=== PATIENT | female | born 1965 | race Two or more races ===

== ENCOUNTER 2023-11-15 13:45 | Inpatient (IN) | payer OTHER, MEDICAID, SELFPAY ==
--- NOTE | ~2023-11-15 | CT_ITS ---
EXAMINATION: CT head/brain wo IV con CLINICAL INFORMATION: Reason for Exam vomiting, hypertensive urgency COMPARISON: None available TECHNIQUE: Contiguous axial imaging was performed from the skull base to vertex without intravenous contrast. Sagittal and coronal reformatted images were obtained. This CT examination was performed using dose optimization techniques as appropriate, variously including the following: * Automated exposure control * Adjustment of mA and/or kV according to patient size (this includes techniques or standardized protocols for targeted exams where dose is matched to indication/reason for exam; i.e. extremities or head) Use of iterative reconstruction technique DLP: 1162 mGy-cm FINDINGS: Motion degraded examination. The cerebral vertex is degraded by motion and underlying hemorrhage in this area cannot be excluded. No definite acute intracranial hemorrhage in the nondegraded areas of the examination. No acute, territorial loss of steinberg-white differentiation. The ventricles and sulci are appropriate in size and configuration for the patient's stated age. No depressed calvarial fracture. The visualized paranasal sinuses are well-aerated. The mastoid air cells are clear. CT/CT head/brain wo IV con IMPRESSION: Significantly motion degraded examination. The cerebral vertex is degraded by motion and underlying hemorrhage in this area cannot be excluded. No definite acute intracranial hemorrhage in the nondegraded areas of the examination.
[2023-11-15 13:58] VITALS: BP 171/99; PULSE 97; RESP 16; TEMP 37.1; O2SAT 99; BMI 31.2
--- NOTE | 2023-11-15 14:17 | PC.NURSE ---
Mateo SHEEHAN from [facility] office in [place]. Pt reports she was meeting with her mental health social worker and was expressing her dissatisfaction with [facility] psychiatric units. Pt reports that she is frustrated with the fact that there are metal hooks in the bathrooms at [facility] and that is dangerous, someone could hurt themselves on that . Pt relays to this RN that she has no want to kill herself and when presented with the section 12 that [facility] wrote, she states nah, that's all made up, I ain't suicidal . Pt is hyperverbal at times, eye contact intense, pt is otherwise calm and cooperative without issue. Urine and covid swab obtained, December, [facility] obtaining labs at this time
[2023-11-15 14:29] LABS: Appearance Urine Clear; Color Urine Yellow; Glucose Urine UA 100 mg/dL (Negative); Leukocyte Esterase Urine Negative (Negative); Nitrite Urine Negative (Negative); UMIC TRIGGER UACC YES; Urine Blood Negative (Negative); Urine Ketones Negative (Negative); Urine Protein 30 (1+) mg/dL (Neg-Trace)
--- NOTE | 2023-11-15 14:29 | PC.NURSE ---
RE: Med Rec This RN completed med rec with medical record and patient. Pt reports she only takes 100mg Seroquel, not any of the other doses that are listed. Pt also reports that she no longer takes her Hydroxizine or Spironolactone. Pt reports compliance with all other medications
[2023-11-15 14:31] LABS: Bacteria Urine None Seen (None Seen); Hyaline Casts Urine 0-2 /LPF (0-2); RBC Urine 0-2 /HPF (0-2); Squamous Epithelial Cell Urine 0-2 /HPF (0-2); WBC Urine 0-5 /HPF (0-5)
[2023-11-15 14:31] LABS: Basophils Percent Auto 0.2 % (0-2); Eosinophils Percent Auto 0.1 % (0-4); Hematocrit 44.4 % (37.0-47.0); Hemoglobin 15.8 g/dl (12.0-16.0); Imm Gran Abs Auto 0.01 X10*3/uL (0.00-0.03); Imm Gran Pct Auto 0.1 % (0.0-0.4); Lymphocytes Absolute Auto 0.4 X10*3/uL (1.2-4.9); Lymphocytes Percent Auto 4.3 % (20-40); MANUAL DIFF FLAG SCAN; Mean Corpuscular HGB Conc 35.6 g/dl (31.0-35.0); Mean Corpuscular Hemoglobin 31.4 pg (27.0-33.0); Mean Corpuscular Volume 88.3 fL (80.0-98.0); Mean Platelet Volume 9.6 fL (9.4-12.3); Monocytes Absolute Auto 0.4 X10*3/uL (0.1-1.2); Monocytes Percent Auto 4.5 % (2-11); Neutrophils Absolute Auto 7.5 x10*3/uL (2.0-8.3); Neutrophils Percent Auto 90.8 % (45-73); Platelet Count 235 X10*3/uL (160-400); Red Blood Count 5.03 X10*6/uL (4.20-5.50); Red Cell Distribution Width 12.7 % (11.0-16.0); SCAN SMEAR FLAG 1; White Blood Count 8.2 X10*3/uL (4.8-10.8)
--- NOTE | 2023-11-15 14:36 | ED_ITS ---
HPI - General Adult General Chief complaint: Psychiatric Symptoms Stated complaint: si section 12 Time Seen by Provider: 11/15/23 13:52 History of Present Illness HPI narrative: Patient is a 58-year-old female with a history of being section 12 from [facility]. Patient had possible plans to hang herself. Patient denies any suicidal homicidal ideation at this time. She stated there is a lack of ligature free environment at [facility]. Subsequently the physician/ophthalmologist showed up patient was taken. No chest pain or shortness of breath no diaphoresis. Patient from home. Related Data Home Medications Medication Instructions Recorded Confirmed amlodipine 5 mg tablet 5 mg PO DAILY 11/15/23 11/15/23 clonidine HCl 0.1 mg tablet 0.1 mg PO BID 11/15/23 11/15/23 metoprolol succinate 25 mg 25 mg PO DAILY 11/15/23 11/15/23 tablet,extended release 24 hr quetiapine 100 mg tablet 100 mg PO BEDTIME 11/15/23 11/15/23 Allergies Allergy/AdvReac Type Severity Reaction Status Date / Time [place] And Derivatives Allergy Severe Hives Verified 11/15/23 14:16 strawberry Allergy Severe Hives Verified 11/15/23 14:16 Review of Systems 2 Review of Systems: No chest pain or shortness of breath no dizziness no nausea no vomiting Yes all other systems are reviewed and are negative [facility] Past Medical History Attestation statement: The following information was validated with the patient. Social History Social History Smoked in Last 30 Days: No Use of substances other than those prescribed or required for medical reasons: No Patient : No Physical Exam ED Vital Signs: Vital Signs - 24 hr 11/15/23 13:58 Temperature 98.7 F Pulse Rate 97 Respiratory Rate 16 Blood Pressure 171/99 H Pulse Oximetry 99 Oxygen Delivery Method Room Air BMI result Body Mass Index 31.2 Appearance: Alert. Oriented X3. No acute distress. Eyes: Pupils equal, round and reactive to light. ENT: Pharynx normal. Neck: Normal inspection. Neck supple. No lymph nodes noted. No crepitus CVS: Normal heart rate and rhythm. Pulses normal. Normal S1 and S2 Respiratory: No respiratory distress. Breath sounds normal. No Wheezing. No rales Abdomen: Soft and nontender. No rigidity. No distention. good BS x4 Skin: Skin warm and dry. Normal skin color. Normal skin turgor. Extremities: No lower extremity edema. Neurovascular intact to all extremities. No Lacerations. No Rash Neuro: Oriented X 3. No motor deficit. No sensory deficit. Moving all extermities. No slurred speech. Cranial nerves grossly intact. Medical Decision Making Medical Decision Making [facility] Narrative: Patient well-appearing not acute distress. Question suicidal ideation section 12 from [facility]. Currently awaiting crisis evaluation. Labs ordered. Differential Diagnosis Differential Diagnoses: The differential diagnosis associated with the presentation includes Depression,anxiety, suicidal ideation Admission/Observation Consideration of admission/observation: Escalation of care including admission/observation considered Lab Data [facility] Lab Attestation statement: I reviewed the patient's lab results. 11/15/23 14:25 11/15/23 14:25 Labs: Lab Results 11/15/23 11/15/23 Range/Units 14:08 14:25 WBC 8.2 (4.8-10.8) X10*3/uL RBC 5.03 (4.20-5.50) X10*6/uL Hgb 15.8 (12.0-16.0) g/dl Hct 44.4 (37.0-47.0) % MCV 88.3 (80.0-98.0) fL MCH 31.4 (27.0-33.0) pg MCHC 35.6 H (31.0-35.0) g/dl RDW 12.7 (11.0-16.0) % Plt Count 235 (160-400) X10*3/uL MPV 9.6 (9.4-12.3) fL Urine Color Yellow Urine Appearance Clear Urine pH 5.0 (5.0-9.0) Ur Specific [place] 1.020 (1.005-1.025) Urine Protein 30 (1+) H (Neg-Trace) mg/dL Urine Glucose (UA) 100 H (Negative) mg/dL Urine Ketones Negative (Negative) mg/dL Urine Blood Negative (Negative) Urine Nitrite Negative (Negative) Ur Leukocyte Esterase Negative (Negative) Urine RBC 0-2 (0-2) /HPF Urine WBC 0-5 (0-5) /HPF Ur Squamous Epith Cells 0-2 (0-2) /HPF Urine Bacteria None Seen (None Seen) Hyaline Casts 0-2 (0-2) /LPF Discharge Plan Discharge Clinical Impression: Depression Patient Disposition: Still a Patient Prescriptions: No Action clonidine HCl 0.1 mg tablet 0.1 mg PO BID amlodipine 5 mg tablet 5 mg PO DAILY quetiapine 100 mg tablet 100 mg PO BEDTIME metoprolol succinate 25 mg tablet extended release 24 hr 25 mg PO DAILY Interventions: [place]-Suicide Risk Severity Scale Last Done: 11/15/23 14:01
[2023-11-15 14:40] LABS: Amphetamine Screen Urine Not Detected (Not Detect); Barbiturates, Urine Not Detected (Not Detect); Benzodiazepines Screen Urine Not Detected (Not Detect); Cannabinoid Screen Urine Not Detected (Not Detect); Cocaine Screen Urine Not Detected (Not Detect); Fentanyl, urine POSITIVE (Not Detect); Opiate Screen Urine Not Detected (Not Detect); Phencyclidine Screen Urine Not Detected (Not Detect)
[2023-11-15 14:48] LABS: SLIDE REVIEW VERIFIED
[2023-11-15 14:53] LABS: Alanine Aminotransferase 41 U/L (0-31); Albumin Level 4.8 g/dL (3.5-5.0); Alkaline Phosphatase 101 U/L (39-117); Anion Gap 13 (12-20); Aspartate Amino Transferase 28 U/L (5-31); Blood Urea Nitrogen 14 mg/dL (9-16); Carbon Dioxide 25 mmol/L (22-29); Chloride 105 mmol/L (96-108); Creatinine Clr Calc Pharmacy 34.8; Estimated Glomerular Filt Rate 35; Ethanol < 10 mg/dL; Glucose Random 124 mg/dL (60-115); Potassium 4.2 mmol/L (3.3-5.1); Sodium 139 mmol/L (135-145); Total Protein 8.5 g/dL (6.5-8.0)
[2023-11-15 14:58] LABS: COVID-19 Test Negative (Negative); IDNOW Serial# 08D9AD1C
--- NOTE | 2023-11-15 15:31 | PHA.MEDREC ---
Pharmacy Consult ? Medication Reconciliation Pharmacy has reviewed the medication reconciliation completed by Charleen. Per RN patient stating no longer taking hydroxyzine or spironolactone. Tamy Mcnally, GloriaD
--- NOTE | 2023-11-15 19:51 | PC.NURSE ---
patient appears to remain at rest at present respirations are even and unlabored patient appears in no distress
[2023-11-15 19:55] VITALS: BP 158/108; PULSE 84; RESP 16; TEMP 36.6; O2SAT 98
[2023-11-15] MEDS: cloNIDine HCL 0.1 MG TABLET PO (20:05)
[2023-11-15] MEDS: QUEtiapine Fumarate 100 MG TABLET PO (20:05)
[2023-11-16] MEDS: Calcium Carbonate 750 MG TAB.CHEW PO (05:22)
[2023-11-16] MEDS: Ondansetron ODT 4 MG TAB.RAPDIS TRANSLINGU (07:22)
[2023-11-16] MEDS: cloNIDine HCL 0.1 MG TABLET PO ×2 (08:30→20:10)
[2023-11-16] MEDS: amLODIPine Besylate 5 MG TABLET PO (08:30)
[2023-11-16] MEDS: Metoprolol Succinate ER 25 MG TAB.ER.24H PO (08:31)
[2023-11-16 12:18] VITALS: BP 158/90; PULSE 73; TEMP 36.2; O2SAT 99
[2023-11-16 14:06] VITALS: BP 176/81; PULSE 98; RESP 16; TEMP 36.6; O2SAT 100
--- NOTE | 2023-11-16 17:56 | PC.ADMIT ---
Pt. entered this unit on a CV via w/c from [facility]. Pt was referred to [facility] through the [facility] crisis team d/t SI/HI statements. The precipitating factor for the SI/HI is her partner dying 1 year ago. Per crisis paperwork unrelenting plan to hang herself (with a sheet) on site for 11/18/23 . In addition, specific unrelenting threats of violence towards staff . Pt observed to be delusional and self dialoguing by [facility]. [facility]. Pt is A&Ox4. When she entered the unit, she was hyperverbal and then wanted to go lay down. Pt was then approached by a second nurse, and she was asleep at the time. Pt declined her admission assessment again. She became irritable during dinner as she called her cheeseburger raw , I don't do blood, do you see it, it's red . At that point, pt declined nursing staff's third approach to complete admission assessment. I am going back to bed, don't talk to me and I don't want anything from you . Pt. appears to be resting comfortably in bed.
[2023-11-16 18:00] VITALS: BP 178/89; PULSE 89; RESP 20; TEMP 36.6; O2SAT 99
[2023-11-16] MEDS: QUEtiapine Fumarate 100 MG TABLET PO (20:10)
[2023-11-17] VITALS (7 sets, daily range): BP systolic 139–220; BP diastolic 96–114; PULSE 66–81; RESP 15–20; TEMP 36.7; O2SAT 98–99
--- NOTE | 2023-11-17 | ECG_ITS ---
Test Reason : elevate BP Blood Pressure : / mmHG Vent. Rate : 056 BPM Atrial Rate : 056 BPM P-R Int : 154 ms QRS Dur : 072 ms QT Int : 442 ms P-R-T Axes : 027 -29 045 degrees QTc Int : 426 ms Sinus bradycardia Otherwise normal ECG No previous ECGs available Referred By: Janice White Electronically Signed By:Scott Harley
[2023-11-17] MEDS: amLODIPine Besylate 5 MG TABLET PO ×2 (07:52→11:13)
[2023-11-17] MEDS: cloNIDine HCL 0.1 MG TABLET PO (07:52)
[2023-11-17] MEDS: Metoprolol Succinate ER 25 MG TAB.ER.24H PO (07:52)
[2023-11-17 07:54] LABS: Alanine Aminotransferase 29 U/L (0-31); Albumin Level 4.3 g/dL (3.5-5.0); Alkaline Phosphatase 86 U/L (39-117); Anion Gap 11 (12-20); Aspartate Amino Transferase 19 U/L (5-31); Bilirubin Total 1.3 mg/dL (0.0-1.0); Blood Urea Nitrogen 21 mg/dL (9-16); Calcium 10.8 mg/dL (8.4-10.2); Carbon Dioxide 28 mmol/L (22-29); Chloride 106 mmol/L (96-108); Cholesterol 235 mg/dL (<200); Creatinine Clr Calc Pharmacy 33.2; Estimated Glomerular Filt Rate 33; Glucose Fasting 157 mg/dL (60-99); HDL Cholesterol 58 mg/dL (>40); LDL Cholesterol Calculated 159 mg/dL (<100); Potassium 4.3 mmol/L (3.3-5.1); Sodium 141 mmol/L (135-145); Total Protein 7.2 g/dL (6.5-8.0); Triglycerides 94 mg/dL (<150)
--- NOTE | 2023-11-17 07:57 | PC.NURSE ---
Pt manual BP: 120/100, pulse 68, aymptomatic. This nurse texted this information to Janice Camacho NP via [employer] connect. This nurse gave morning medications which included amlodipine 5mg, Clonidine 0.1mg, and metoprolol 25mg. This nurse to recheck BP in 60 minutes post med administration. Nurse to monitor pt for adverse effects of hypertension.
[2023-11-17 10:37] LABS: Influenza A PCR NEGATIVE (Negative); Influenza B PCR NEGATIVE (Negative); Resp Syncy Virus RNA Qual PCR NEGATIVE (Negative); SARS COV2 PCR INHOUSE NEGATIVE (Negative)
--- NOTE | 2023-11-17 10:52 | HO.PSYADMNOT ---
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 Pt has hx she reports of schizoaffective bipolar, Has kidney failrure with hx of diazlysis- Pt very tangential and keeps adding in things about congregation this and that person- pleased provider is congregation says she converted, knows yifredy then says autumn - Past Psychiatric History: in care home years ago was started on seroquel , feels she needs higher dose Medical Evaluation Reviewed: Yes no recommendations made but I contact hospitalist for concerns about HTN and now vomiting (she hadn't had vomiting in er) [facility] Medical History (Updated 11/18/23 @ 10:02 by Janice White MD) Nausea & vomiting Depression CKD (chronic kidney disease) stage 3, GFR 30-59 ml/min Hypertension Surgical History (Updated 11/17/23 @ 11:00 by Adelina Galeano NP) H/O knee surgery Family History: did not get Social History: currently homeless, no income- Substance History: mj only - 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 Trauma History: in correction- Diagnostics Vital Signs (24Hr): Vital Signs - 24 hr 11/16/23 12:18 11/16/23 14:06 11/16/23 18:00 Temperature 97.2 F 97.9 F 97.8 F Pulse Rate 73 98 89 Respiratory Rate 16 20 Blood Pressure 158/90 H 176/81 H 178/89 H Pulse Oximetry 99 100 99 Oxygen Delivery Method Room Air Room Air Room Air 11/17/23 07:49 11/17/23 07:53 11/17/23 08:45 Temperature 98.1 F Pulse Rate 67 68 78 Respiratory Rate 15 15 Blood Pressure 200/104 H 220/100 H 139/104 H Pulse Oximetry 99 Oxygen Delivery Method Room Air 11/17/23 10:48 Temperature Pulse Rate 81 Respiratory Rate Blood Pressure 177/114 H Pulse Oximetry Oxygen Delivery Method BMI result Body Mass Index 31.2 Labs 11/15/23 14:25 11/17/23 07:25 Labs: Laboratory Results - last 48 hr 11/15/23 11/15/23 11/17/23 14:08 14:25 07:25 WBC 8.2 RBC 5.03 Hgb 15.8 Hct 44.4 MCV 88.3 MCH 31.4 MCHC 35.6 H RDW 12.7 Plt Count 235 MPV 9.6 Immature Gran % (Auto) 0.1 Neut % (Auto) 90.8 H Lymph % (Auto) 4.3 L [place] % (Auto) 4.5 Eos % (Auto) 0.1 Baso % (Auto) 0.2 Lymph # (Auto) 0.4 L [place] # (Auto) 0.4 Eos # (Auto) 0.0 Baso # (Auto) 0.0 Abs Immat Gran (auto) 0.01 Absolute Neuts (auto) 7.5 Absolute Nucleated RBC 0.000 Nucleated RBC % (auto) 0.0 Smear Tech's Comments VERIFIED Sodium 139 141 Potassium 4.2 4.3 Chloride 105 106 Carbon Dioxide 25 28 Anion Gap 13 11 L BUN 14 21 H Creatinine 1.53 H 1.60 H Estim Creat Clear Calc 34.8 33.2 Estimated GFR 35 33 Random Glucose 124 H Fasting Glucose 157 H Calcium 11.0 H 10.8 H Total Bilirubin 1.0 1.3 H AST 28 19 ALT 41 H 29 Alkaline Phosphatase 101 86 Total Protein 8.5 H 7.2 Albumin 4.8 4.3 Triglycerides 94 Cholesterol 235 H LDL Cholesterol, Calc 159 H HDL Cholesterol 58 Urine Color Yellow Urine Appearance Clear Urine pH 5.0 Ur Specific [place] 1.020 Urine Protein 30 (1+) H Urine Glucose (UA) 100 H Urine Ketones Negative Urine Blood Negative Urine Nitrite Negative Ur Leukocyte Esterase Negative Urine RBC 0-2 Urine WBC 0-5 Ur Squamous Epith Cells 0-2 Urine Bacteria None Seen Hyaline Casts 0-2 Urine Opiates Screen Not Detected Urine Fentanyl Screen POSITIVE H Ur Barbiturates Screen Not Detected Ur Phencyclidine Scrn Not Detected Ur Amphetamines Screen Not Detected U Benzodiazepines Scrn Not Detected Urine Cocaine Screen Not Detected U Marijuana (THC) Screen Not Detected Ethyl Alcohol < 10 COVID-19 (BISHNU) Negative COVID-19 Clin Com See Note Influenza Type A (PCR) Influenza Type B (PCR) RSV RNA Qual (PCR) SARS-CoV-2 RNA (RT-PCR) 11/17/23 09:30 WBC RBC Hgb Hct MCV MCH MCHC RDW Plt Count MPV Immature Gran % (Auto) Neut % (Auto) Lymph % (Auto) [place] % (Auto) Eos % (Auto) Baso % (Auto) Lymph # (Auto) [place] # (Auto) Eos # (Auto) Baso # (Auto) Abs Immat Gran (auto) Absolute Neuts (auto) Absolute Nucleated RBC Nucleated RBC % (auto) Smear Tech's Comments Sodium Potassium Chloride Carbon Dioxide Anion Gap BUN Creatinine Estim Creat Clear Calc Estimated GFR Random Glucose Fasting Glucose Calcium Total Bilirubin AST ALT Alkaline Phosphatase Total Protein Albumin Triglycerides Cholesterol LDL Cholesterol, Calc HDL Cholesterol Urine Color Urine Appearance Urine pH Ur Specific [place] Urine Protein Urine Glucose (UA) Urine Ketones Urine Blood Urine Nitrite Ur Leukocyte Esterase Urine RBC Urine WBC Ur Squamous Epith Cells Urine Bacteria Hyaline Casts Urine Opiates Screen Urine Fentanyl Screen Ur Barbiturates Screen Ur Phencyclidine Scrn Ur Amphetamines Screen U Benzodiazepines Scrn Urine Cocaine Screen U Marijuana (THC) Screen Ethyl Alcohol COVID-19 (BISHNU) COVID-19 Clin Com Influenza Type A (PCR) NEGATIVE Influenza Type B (PCR) NEGATIVE RSV RNA Qual (PCR) NEGATIVE SARS-CoV-2 RNA (RT-PCR) NEGATIVE Meds/Allergies Meds Home Medications Medication Instructions Recorded Confirmed Type clonidine HCl 0.1 mg tablet 0.1 mg PO BID 11/15/23 11/17/23 History metoprolol succinate 25 mg 25 mg PO DAILY 11/15/23 11/17/23 History tablet,extended release 24 hr quetiapine 100 mg tablet 100 mg PO BEDTIME 11/15/23 11/17/23 History Allergies Allergies Allergy/AdvReac Type Severity Reaction Status Date / Time [place] And Derivatives Allergy Severe Hives Verified 11/15/23 14:16 strawberry Allergy Severe Hives Verified 11/15/23 14:16 Mental Status Exam Mental Status Exam Narrative: bald Patient Appearance: Unkempt Patient Orientation: Person, Place, Time and Situation Level of Consciousness: Awake Patient Behavior: Talkative, Cooperative and Distractible Affect Description: Expansive Patient Cognition Impaired: No Ability to Follow Directions: Fair Speech Pattern: Clear and Rambling Hallucinations: None Delusions: Not Present Thought Process: Distracted Thought Content: positive for Tangential and positive for Suicidal Ideation (recent but denies currently while in care) Depressive Symptoms: Muscle Tension, Difficulty Sleeping and Thoughts of /Suicide Abnormal Motor Activity Signs and Symptoms: Restlessness Judgement: Fair Assessment & Plan Assessment & Plan (1) Bipolar 1 disorder: Status: Acute Code(s): F31.9 - Bipolar disorder, unspecified Assessment and Plan: we were going to add seroquel 50mg in am and inc pm dose to 150mg but pt was transfered to medical unit for uncontrolled htn (2) Hypertension: Status: Acute Code(s): I10 - Essential (primary) hypertension Assessment and Plan: went to medical unit for monitoring (3) CKD (chronic kidney disease) stage 3, GFR 30-59 ml/min: Status: Acute Code(s): N18.30 - Chronic kidney disease, stage 3 unspecified (4) Nausea & vomiting: Status: Acute Code(s): R11.2 - Nausea with vomiting, unspecified Plan return to inpatient Patient educated on: diagnosis, medication risk/benefits and medical condition Informed Consent: understands and further education needed Reason for continued inpatient stay Substantial Risk for: harm to self, rapid decompensation and med/psych decompensation Statement Statement: I have reviewed the history and physical and performed a pertinent examination on my patient. No changes have occurred unless specified. If the History and Physical was not performed prior to admission, the Hospitalist's service will be consulted for completing the admission physical. Time Spent With Patient Time: Total time managing care of this patient today ____ minutes.
--- NOTE | 2023-11-17 10:59 | HO.PM.IMCN ---
History of Present Illness Data of Consult Service Date: 11/17/23 Primary Care Provider: Unknown Physician HPI 58 year old women with hx of HTN and depression admitted to for mental health care. She reports having nausea and vomiting for the past 3 days. She has also had elevated Blood pressure as well. She reports being diagnosed with HTN and CKD in early 2022 and reports compliance with her medications. She denied fever, chills, diarrhea, chest pain, sob, abdominal pain. Blood pressure was noted to be 177/114 a few minutes after the vomiting episode. She was alert and oriented during the interview with no further urge to vomit. She reported that she ate a hamburger yesterday and vomiting it up but the RN stated that the patient just removed the piece of food from her mouth rather and did not vomit. Tot bili 1.3, AST and ALT wnl, creat 1.60, EKG showing SB with no ischemic changes. Review of Systems Review of Systems: Denies any recent fever chills or decrease in appetite respiratory denies any shortness of breath r cough cardiovascular denied chest pain gastrointestinal see HPI genitourinary denies any dysuria frequency or hematuria musculoskeletal reports chronic knee pain neuropsych denies any weakness or seizures all other systems reviewed are negative [facility] Medical History (Updated 01/18/24 @ 00:02 by Storm Davis) Nausea & vomiting Depression CKD (chronic kidney disease) stage 3, GFR 30-59 ml/min Hypertension Family History (Updated 11/17/23 @ 11:01 by Adelina Galeano NP) Mother Diabetes mellitus Surgical History (Updated 11/17/23 @ 11:00 by Adelina Galeano NP) H/O knee surgery Social History Household Members: None Housing: Homeless Do you presently have visiting nurse or other home services: No Alcohol intake: current Alcohol intake frequency: a few times a month Comment: 1:1 sitter in for SI Patient Tobacco Use Status: Refuse Tobacco use screen Substance Use Type: Opiates service: No Sexual orientation: Lesbian/Rocha/Homosexual Meds Allergies Allergy/AdvReac Type Severity Reaction Status Date / Time [place] And Derivatives Allergy Severe Hives Verified 12/26/23 18:53 strawberry Allergy Severe Hives Verified 12/26/23 18:53 Active Medications: Current Medications Acetaminophen (Acetaminophen 325 Mg Tablet) 650 mg PO Q6H PRN PRN Reason: Headache/Pain Mild Scale (1-3) Al Hydroxide/Mg Hydroxide (Magnesium Hydrox/Alum Hydrox 30 Ml Oral.Susp) 30 ml PO Q6H PRN PRN Reason: Heartburn/Nausea Amlodipine Besylate (Amlodipine Besylate 10 Mg Tablet) 10 mg PO DAILY [facility]; Protocol Clonidine HCl (Clonidine Hcl 0.1 Mg Tablet) 0.1 mg PO BID [facility]; Protocol Last Admin: 11/17/23 07:52 Dose: 0.1 mg Hydroxyzine HCl (Hydroxyzine Hcl 25 Mg Tablet) 25 mg PO Q6H PRN PRN Reason: Anxiety Magnesium Hydroxide (Milk Of Magnesia 30 Ml Oral.Susp) 30 ml PO DAILY PRN PRN Reason: Constipation Metoprolol Succinate (Metoprolol Succinate Er 25 Mg Tab.Er.24h) 25 mg PO DAILY [facility]; Protocol Last Admin: 11/17/23 07:52 Dose: 25 mg Omeprazole (Omeprazole 20 Mg Capsule.Dr) 20 mg PO BID@0630,1630 [facility] Ondansetron HCl (Ondansetron Odt 4 Mg Tab.Rapdis) 4 mg TRANSLINGU Q6H PRN PRN Reason: Nausea and Vomiting Quetiapine Fumarate (Quetiapine Fumarate 100 Mg Tablet) 100 mg PO BEDTIME [facility] Last Admin: 11/16/23 20:10 Dose: 100 mg Trazodone HCl (Trazodone Hcl 50 Mg Tablet) 50 mg PO BEDTIME MRX1 PRN PRN Reason: Insomnia Physical Exam Vital Signs and Narrative: Vital Signs: Last Vital Signs Temp 98.1 F 11/17/23 07:49 Pulse 81 11/17/23 10:48 Resp 15 11/17/23 07:53 BP 177/114 H 11/17/23 10:48 Pulse Ox 99 11/17/23 07:49 O2 Del Method Room Air 11/17/23 07:49 BMI result Body Mass Index 31.2 Appearing in no acute distress head is normocephalic atraumatic eyes pupils are PERRLA sclera is anicteric lung sounds are clear to auscultation heart regular rate rhythm positive bowel sounds, abdomen is soft, nontender neuro patient is alert x3, Cranial nerves 2-12 are grossly intact without focal deficits Results Labs 11/15/23 14:25 11/17/23 07:25 Labs: Laboratory Results - last 24 hr 11/17/23 11/17/23 07:25 09:30 Anion Gap 11 L Estim Creat Clear Calc 33.2 Estimated GFR 33 Fasting Glucose 157 H Calcium 10.8 H Total Bilirubin 1.3 H AST 19 ALT 29 Alkaline Phosphatase 86 Total Protein 7.2 Albumin 4.3 Triglycerides 94 Cholesterol 235 H LDL Cholesterol, Calc 159 H HDL Cholesterol 58 Influenza Type A (PCR) NEGATIVE Influenza Type B (PCR) NEGATIVE RSV RNA Qual (PCR) NEGATIVE SARS-CoV-2 RNA (RT-PCR) NEGATIVE Assessment and Plan (1) Nausea & vomiting: Status: Resolved Plan 58 year old women with c/o nausea for the past 3 days with no abd pain or discomfort. no fever, chills or infectious source noted. She has a hx of Hypertension and likely uncontrolled for some time now but reports that she has been compliant with her medications. Denies hx of alcohol and marijuana use. Nausea and vomiting unknown etiology nausea and vomiting for 3 days no fever or leukocytosis no abd pain or tenderness Normal LFT's start omeprazole 20 mg BID tums and zofran prn GI consult Hypertension urgency Increased amlodipine to 10 mg daily continue clonidine and metoprolol will check brain CT to rule out hypertension as cause for vomiting ie: intracranial bleeding CKD stage 3 likely at baseline but no previous labs to compare avoid nephrotoxins
[2023-11-17] MEDS: Ondansetron ODT 4 MG TAB.RAPDIS TRANSLINGU (11:14)
[2023-11-17 11:18] LABS: Estimated Average Glucose 108 mg/dL; Hemoglobin A1c % 5.4 % (<6.0)
--- NOTE | 2023-11-17 12:29 | PC.NURSE ---
Pt has vomited x3 this shift, several episodes of HTN as well, please see VS chart for additional information. Pt being transfered to medical floor for further exploration. head CT pending as well. Resp panel completed and all negative.
== END 2023-11-17 14:04 | disposition other institution (70) | DRG 753 ==
LOC: HO.ED 15:31 → HO.PM5 11-16 12:19 → HO.IMC 11-17 13:44 → HO.PM5 11-22 15:12
PROVIDERS: Admitting Provider Psychiatry & Neurology Psychiatry; Emergency Provider Emergency Medicine Emergency Medical Services; Visit Provider Psychiatry & Neurology Psychiatry
DX: F31.9 Bipolar disorder, unspecified (principal); R45.851 Suicidal ideations; I16.0 Hypertensive urgency; I12.9 Hypertensive chronic kidney disease with stage 1 through stage 4 chronic kidney disease, or unspecified chronic kidney disease; N18.30 Chronic kidney disease, stage 3 unspecified; Z20.822 Contact with and (suspected) exposure to COVID-19; Z59.02 Unsheltered homelessness; Z79.899 Other long term (current) drug therapy
CPT/HCPCS: 0241U; 36415; 70450; 80053; 80061; 80307; 81001; 83036; 85025; 87635; 93005; 99285; S9485

== ENCOUNTER 2023-11-16 12:08 | Outpatient (BNV) | payer MEDICAID, SELFPAY | END 2023-11-17 09:37 | PROVIDERS: Admitting Provider Psychiatry & Neurology Psychiatry; Emergency Provider Emergency Medicine Emergency Medical Services; Visit Provider Internal Medicine Cardiovascular Disease | DX: I10 Essential (primary) hypertension (principal) | CPT/HCPCS: 93010 ==

== ENCOUNTER → 2023-11-16 12:08 | Outpatient (BNV) | payer MEDICAID, SELFPAY | PROVIDERS: Admitting Provider Psychiatry & Neurology Psychiatry; Emergency Provider Emergency Medicine Emergency Medical Services; Visit Provider Nurse Practitioner Acute Care | DX: R11.2 Nausea with vomiting, unspecified (principal) | CPT/HCPCS: 99223 ==

== ENCOUNTER 2023-11-17 15:20 | Inpatient (IN) | payer MEDICAID, SELFPAY ==
--- NOTE | 2023-11-17 12:41 | PM.IMHP ---
History of Present Illness Date of Service: 11/17/23 Chief Complaint: Vomiting, hypertensive urgency 58 year old women with hx of HTN and depression admitted to for mental health care and now transferred to [facility] of hypertensive urgency. She reports having nausea and vomiting for the past 3 days. She has also had elevated Blood pressure as well. She reports being diagnosed with HTN and CKD in early 2022 and reports compliance with her medications. She denied fever, chills, diarrhea, chest pain, sob, abdominal pain. Blood pressure was noted to be 177/114 a few minutes after the vomiting episode. But BP peaked at 220/100 during stay. She was alert and oriented during the interview with no further urge to vomit. She reported that she ate a hamburger yesterday and vomiting it up but the RN stated that the patient just removed the piece of food from her mouth rather and did not vomit. Tot bili 1.3, AST and ALT wnl, creat 1.60, EKG showing SB with no ischemic changes. Review of Systems Review of Systems: Denies any recent fever chills or decrease in appetite respiratory denies any shortness of breath or cough cardiovascular denied chest pain gastrointestinal denies any dysphagia abdominal pain nausea vomiting or diarrhea genitourinary denies any dysuria frequency or hematuria musculoskeletal denies any joint pain or swelling neuropsych denies any weakness or seizures all other systems reviewed are negative [facility] Medical History (Updated 11/17/23 @ 11:22 by Adelina Galeano NP) Nausea & vomiting Depression CKD (chronic kidney disease) stage 3, GFR 30-59 ml/min Hypertension Family History (Updated 11/17/23 @ 11:01 by Adelina Galeano NP) Mother Diabetes mellitus Surgical History (Updated 11/17/23 @ 11:00 by Adelina Galeano NP) H/O knee surgery Social History Household Members: None Housing: Apartment Patient Tobacco Use Status: Tobacco use Unknown Advance Directives: No Advance Directives Information Provided: No Meds Allergies Allergy/AdvReac Type Severity Reaction Status Date / Time [place] And Derivatives Allergy Severe Hives Verified 11/15/23 14:16 strawberry Allergy Severe Hives Verified 11/15/23 14:16 Active Medications: Current Medications Acetaminophen (Acetaminophen 325 Mg Tablet) 650 mg PO Q6H PRN PRN Reason: Pain, Mild (Pain Scale 1-3) Amlodipine Besylate (Amlodipine Besylate 10 Mg Tablet) 10 mg PO DAILY [facility]; Protocol Omeprazole (Omeprazole 20 Mg Capsule.Dr) 20 mg PO BID@0630,1630 [facility] Ondansetron HCl (Ondansetron Hcl 4 Mg/2 Ml Vial) 4 mg IVPUSH Q8H PRN PRN Reason: Nausea and Vomiting Ondansetron HCl (Ondansetron Hcl 4 Mg/2 Ml Vial) 4 mg IVPUSH Q8H PRN PRN Reason: Nausea and Vomiting Sodium Chloride (0.9 % Sodium Chloride Flush 3 Ml Syringe) 3 ml IVFLUSH QSHIFT [facility] Home Medications Medication Instructions Recorded Confirmed Last Taken Type clonidine HCl 0.1 mg tablet 0.1 mg PO BID 11/15/23 11/17/23 11/14/23 History metoprolol succinate 25 mg 25 mg PO DAILY 11/15/23 11/17/23 11/14/23 History tablet,extended release 24 hr quetiapine 100 mg tablet 100 mg PO BEDTIME 11/15/23 11/17/23 11/14/23 History Physical Exam Vital Signs and Narrative: Appearing in no acute distress head is normocephalic atraumatic eyes pupils are PERRLA sclera is anicteric mouth throat mucous membranes are intact and moist neck is supple no lymphadenopathy, no JVD noted lung sounds are clear to auscultation heart regular rate rhythm, clear S1, S2 positive bowel sounds, abdomen is soft, nontender neuro patient is alert x3, no focal deficits Assessment and Plan (1) Nausea & vomiting: Status: Acute Plan 58 year old women with c/o nausea for the past 3 days with no abd pain or discomfort. no fever, chills or infectious source noted. She has a hx of Hypertension and likely uncontrolled for some time now but reports that she has been compliant with her medications. Denies hx of alcohol and marijuana use. [facility] Hypertension urgency Increased amlodipine to 10 mg daily. continue clonidine and metoprolol give labetolol 20 mg IV once brain CT with motion degradation but no definite acute hemorrhage in the non degraded area Nausea and vomiting unknown etiology nausea and vomiting for 3 days no fever or leukocytosis no abd pain or tenderness Normal LFT's start omeprazole 20 mg BID zofran prn GI consult CKD stage 3 likely at baseline but no previous labs to compare avoid nephrotoxins Depression continue seroquel at night DVT prophylaxis with pneumatic compression boots Full code Patient required least 48 hours for treatment of hypertensive urgency requiring IV antihypertensive medication and IV antiemetic medication for nausea and vomiting. Quality Stroke Does the patient have a stroke diagnosis?: No VTE Prior VTE?: No VTE Risk Level:: Medical - moderate - high VTE Device Contraindication: N/A - Device Ordered VTE Drug Contraindication: Treatment Not Indicated
--- NOTE | 2023-11-17 15:26 | PHA.MEDREC ---
Pharmacy Consult ? Medication Reconciliation Pharmacy has completed the medication reconciliation. pT X-ROSE FROM M5
[2023-11-17] MEDS: Omeprazole 20 MG CAPSULE.DR PO (15:51)
[2023-11-17] MEDS: Labetalol HCL 100 MG/20 ML VIAL 20 MG IVPUSH (15:53)
[2023-11-17 16:00] VITALS: BP 185/102; PULSE 62; RESP 24; TEMP 36.7; O2SAT 99
[2023-11-17] MEDS: hydrALAZINE HCl 20 MG/ML VIAL 10 MG IVPUSH (17:20)
[2023-11-17 17:28] VITALS: BP 150/100; PULSE 62; RESP 20; TEMP 36.1
[2023-11-17 17:59] VITALS: BP 150/88; PULSE 70
[2023-11-17 18:34] VITALS: BMI 30.2
--- NOTE | 2023-11-17 19:03 | PC.NURSE ---
Pt arrived as transfer from into bed 483 approximately 1415 in wheelchair steady gait to bed. PO at bedside on arrival for SI/HI does report plan for SI. Pt is alert and oriented x4, hyperverbal. BA to command 5/5 sensation intact, +pp bilat no edema noted. Denies headache, dizziness or vision changes pupils PERRLA 2B. Denies pain/discomfort. LSCTA denies SOB or CP, NSR on tele. BS+X4 denies nausea at this time although c/o upset stomach per pt report vomiting just prior to arrival. SBP elevated on arrival into 180's. Joao Galeano [employer]ER notified of arrival on unit to see patient. IV placed to right arm Labetolol given per order recheck remains elevated into 190 systolic. Q[employer]ER notified prn Hydralazine given IV push with good results repeat in 150's systolic. Admission completed as allowed by patient upset about events and constant pressure monitoring requesting to be allowed to rest. Pt resting comfortably in bed per pt reports feeling better than previous happy with results of lower pressure.
[2023-11-17 19:42] VITALS: BP 169/91; PULSE 88; RESP 18; TEMP 36.3; O2SAT 99
[2023-11-17] MEDS: QUEtiapine Fumarate 100 MG TABLET PO (20:46)
[2023-11-17] MEDS: cloNIDine HCL 0.1 MG TABLET PO (20:46)
[2023-11-17] MEDS: 0.9 % Sodium Chloride Flush 3 ML SYRINGE IVFLUSH (20:48)
[2023-11-17 23:12] VITALS: BP 157/96; PULSE 87; RESP 19; TEMP 36.3; O2SAT 96
[2023-11-18 03:58] VITALS: BP 146/96; PULSE 91; RESP 18; TEMP 37.4; O2SAT 95
[2023-11-18] MEDS: Calcium Carbonate 750 MG TAB.CHEW PO ×2 (04:43→20:35)
[2023-11-18] MEDS: Omeprazole 20 MG CAPSULE.DR PO ×2 (05:32→17:57)
[2023-11-18 06:26] LABS: MANUAL DIFF FLAG NO
[2023-11-18 06:31] LABS: Basophils Percent Auto 0.4 % (0-2); Eosinophils Absolute Auto 0.1 X10*3/uL (0.0-0.4); Eosinophils Percent Auto 0.7 % (0-4); Imm Gran Abs Auto 0.02 X10*3/uL (0.00-0.03); Imm Gran Pct Auto 0.3 % (0.0-0.4); Lymphocytes Absolute Auto 0.8 X10*3/uL (1.2-4.9); Mean Corpuscular HGB Conc 36.4 g/dl (31.0-35.0); Mean Corpuscular Hemoglobin 31.7 pg (27.0-33.0); Mean Corpuscular Volume 87.1 fL (80.0-98.0); Mean Platelet Volume 9.7 fL (9.4-12.3); Monocytes Absolute Auto 0.6 X10*3/uL (0.1-1.2); Monocytes Percent Auto 8.9 % (2-11); Neutrophils Absolute Auto 5.6 x10*3/uL (2.0-8.3); Neutrophils Percent Auto 78.7 % (45-73); Platelet Count 246 X10*3/uL (160-400); Red Blood Count 5.05 X10*6/uL (4.20-5.50); Red Cell Distribution Width 12.7 % (11.0-16.0); White Blood Count 7.1 X10*3/uL (4.8-10.8)
[2023-11-18 06:59] LABS: Alanine Aminotransferase 35 U/L (0-31); Albumin Level 4.5 g/dL (3.5-5.0); Alkaline Phosphatase 90 U/L (39-117); Anion Gap 13 (12-20); Aspartate Amino Transferase 23 U/L (5-31); Bilirubin Total 1.5 mg/dL (0.0-1.0); Blood Urea Nitrogen 19 mg/dL (9-16); Calcium 10.8 mg/dL (8.4-10.2); Carbon Dioxide 27 mmol/L (22-29); Chloride 103 mmol/L (96-108); Estimated Glomerular Filt Rate 33; Glucose Random 127 mg/dL (60-115); Potassium 3.6 mmol/L (3.3-5.1); Sodium 139 mmol/L (135-145); Total Protein 7.7 g/dL (6.5-8.0)
[2023-11-18 07:07] VITALS: BP 150/94; PULSE 104; RESP 20; TEMP 36.1; O2SAT 100
--- NOTE | 2023-11-18 07:16 | PM.GICN ---
History of Present Illness Data of Consult Service Date: 11/18/23 Requesting physician: Adelina Galeano Primary Care Provider: Unknown Physician HPI 58 YF with HTN and depression admitted to for mental health care and transferred to [facility] on 11/17/23 for tx of hypertensive urgency. Pt reported being diagnosed with HTN and CKD in early 2022 and having nausea and vomiting for the past 3 days. She has also had elevated Blood pressure as well. She noted compliance with her medications. She denied fever, chills, diarrhea, chest pain, sob, abdominal pain. Blood pressure was noted to be 177/114 a few minutes after the vomiting episode and peaked at 220/100 during stay. She was alert and oriented during the interview with no further urge to vomit. She reported that she ate a hamburger yesterday and vomiting it up but the RN stated that the patient just removed the piece of food from her mouth rather and did not vomit. Labs showed Tot bili 1.3, AST and ALT wnl, creat 1.60, EKG showing SB with no ischemic changes. Review of Systems Review of Systems: Denies any recent fever chills or decrease in appetite respiratory denies any shortness of breath or cough cardiovascular denied chest pain gastrointestinal denies any dysphagia abdominal pain nausea vomiting or diarrhea genitourinary denies any dysuria frequency or hematuria musculoskeletal denies any joint pain or swelling neuropsych denies any weakness or seizures all other systems reviewed are negative [facility] Past Medical History Medical History (Updated 11/17/23 @ 11:22 by Adelina Galeano NP) Nausea & vomiting Depression CKD (chronic kidney disease) stage 3, GFR 30-59 ml/min Hypertension Family History Family History (Updated 11/17/23 @ 11:01 by Adelina Galeano NP) Mother Diabetes mellitus Surgical History Surgical History (Updated 11/17/23 @ 11:00 by Adelina Galeano NP) H/O knee surgery Social History Social History Household Members: Unknown / Unable to assess Housing: Apartment Patient Tobacco Use Status: Tobacco use Unknown Use of substances other than those prescribed or required for medical reasons: No Currently Displaying Signs/Symptoms of Drug Intoxication Withdrawal: No Have you been hit, kicked, punched, or otherwise hurt by someone within the past year? If so, by whom?: No Do you feel safe in your current relationship?: No Current Relationship Is there a partner from a previous relationship who is making you feel unsafe now?: No Are you made to feel afraid or neglected: No Advance Directives: No Advance Directives Information Provided: No Do you have thoughts of harming others: Vague Do you have a plan to hurt others: No Plan Recently lost weight without trying: Unsure How much weight loss: Unsure Eating poorly because of decreased appetite: Yes Nutrition screen score: 5 Nutrition Risks: Poor intake 0-25% >4 days Patient : No : No Poor oral hygiene: No Meds Allergies Allergy/AdvReac Type Severity Reaction Status Date / Time [place] And Derivatives Allergy Severe Hives Verified 11/15/23 14:16 strawberry Allergy Severe Hives Verified 11/15/23 14:16 Active Medications: Current Medications Acetaminophen (Acetaminophen 325 Mg Tablet) 650 mg PO Q6H PRN PRN Reason: Pain, Mild (Pain Scale 1-3) Amlodipine Besylate (Amlodipine Besylate 10 Mg Tablet) 10 mg PO DAILY [facility]; Protocol Calcium Carbonate (Calcium Carbonate 750 Mg Tab.Chew) 750 mg PO Q4H PRN PRN Reason: Indigestion Last Admin: 11/18/23 04:43 Dose: 750 mg Clonidine HCl (Clonidine Hcl 0.1 Mg Tablet) 0.1 mg PO BID [facility]; Protocol Last Admin: 11/17/23 20:46 Dose: 0.1 mg Hydralazine HCl (Hydralazine Hcl 20 Mg/Ml Vial) 10 mg IVPUSH Q4H PRN; Protocol PRN Reason: [id number] Last Admin: 11/17/23 17:20 Dose: 10 mg Metoprolol Succinate (Metoprolol Succinate Er 25 Mg Tab.Er.24h) 25 mg PO DAILY [facility]; Protocol Omeprazole (Omeprazole 20 Mg Capsule.Dr) 20 mg PO BID@0630,1630 [facility] Last Admin: 11/18/23 05:32 Dose: 20 mg Ondansetron HCl (Ondansetron Hcl 4 Mg/2 Ml Vial) 4 mg IVPUSH Q8H PRN PRN Reason: Nausea and Vomiting Quetiapine Fumarate (Quetiapine Fumarate 100 Mg Tablet) 100 mg PO BEDTIME [facility] Last Admin: 11/17/23 20:46 Dose: 100 mg Sodium Chloride (0.9 % Sodium Chloride Flush 3 Ml Syringe) 3 ml IVFLUSH QSHIFT [place] Last Admin: 11/17/23 20:48 Dose: 3 ml Home Medications Medication Instructions Recorded Confirmed Last Taken Type clonidine HCl 0.1 mg tablet 0.1 mg PO BID 11/15/23 11/17/23 11/14/23 History metoprolol succinate 25 mg 25 mg PO DAILY 11/15/23 11/17/23 11/14/23 History tablet,extended release 24 hr quetiapine 100 mg tablet 100 mg PO BEDTIME 11/15/23 11/17/23 11/14/23 History Physical Exam Vital Signs: Vital Signs: Last Vital Signs Temp 97.0 F 11/18/23 07:07 Pulse 104 H 11/18/23 07:07 Resp 20 11/18/23 07:07 BP 150/94 H 11/18/23 07:07 Pulse Ox 100 11/18/23 07:07 O2 Del Method Room Air 11/18/23 03:58 Results Labs 11/18/23 06:16 11/18/23 06:16 Labs: Short CBC 11/18/23 Range/Units 06:16 WBC 7.1 (4.8-10.8) X10*3/uL Hgb 16.0 (12.0-16.0) g/dl Hct 44.0 (37.0-47.0) % Plt Count 246 (160-400) X10*3/uL BMP 11/18/23 06:16 Sodium 139 Potassium 3.6 Chloride 103 Carbon Dioxide 27 BUN 19 H Creatinine 1.58 H Calcium 10.8 H Liver Function 11/18/23 Range/Units 06:16 Total Bilirubin 1.5 H (0.0-1.0) mg/dL AST 23 (5-31) U/L ALT 35 H (0-31) U/L Alkaline Phosphatase 90 (39-117) U/L Albumin 4.5 (3.5-5.0) g/dL Procedures Date of Service Date of Service: 11/18/23
--- NOTE | 2023-11-18 08:31 | P.CONNP_ITS ---
History of Present Illness Reason for Consult Consult date: 11/19/23 Reason for consult: CKD Chief Complaint Chief complaint: Hypertensive urgency History of Present Illness Narrative: 58 year old women with hx of HTN and depression admitted to for mental health care and now transferred to [facility] of hypertensive urgency. She reports having nausea and vomiting for the past 3 days. She has also had elevated Blood pressure as well. She reports being diagnosed with HTN and CKD in early 2022 and reports compliance with her medications. She denied fever, chills, diarrhea, chest pain, sob, abdominal pain. She has recently moved from [place]. Apparently she was told that she has kidney disease and she may need dialysis. However based on recent lab results she has stage III CKD and there is no indication for dialysis. Review of Systems Constitutional: Denies fever(s) and Denies weight loss Cardiovascular: Denies chest pain Respiratory: Denies cough and Denies hemoptysis Gastrointestinal: Denies abdominal pain, Denies diarrhea and Denies nausea Musculoskeletal: Denies back pain Denies focal weakness [facility] Past Medical History Medical History (Updated 11/18/23 @ 10:02 by Janice White MD) Nausea & vomiting Depression CKD (chronic kidney disease) stage 3, GFR 30-59 ml/min Hypertension Family History Family History (Updated 11/17/23 @ 11:01 by Adelina Galeano NP) Mother Diabetes mellitus Surgical History Surgical History (Updated 11/17/23 @ 11:00 by Adelina Galeano NP) H/O knee surgery Social History Social History Household Members: Unknown / Unable to assess Housing: Apartment Comment: 1:1 sitter in for SI Patient Tobacco Use Status: Tobacco use Unknown Use of substances other than those prescribed or required for medical reasons: No Currently Displaying Signs/Symptoms of Drug Intoxication Withdrawal: No Have you been hit, kicked, punched, or otherwise hurt by someone within the past year? If so, by whom?: No Do you feel safe in your current relationship?: No Current Relationship Is there a partner from a previous relationship who is making you feel unsafe now?: No Are you made to feel afraid or neglected: No Advance Directives: No Advance Directives Information Provided: No Do you have thoughts of harming others: Vague Do you have a plan to hurt others: No Plan Recently lost weight without trying: Unsure How much weight loss: Unsure Eating poorly because of decreased appetite: Yes Nutrition screen score: 5 Nutrition Risks: Poor intake 0-25% >4 days Patient : No : No Poor oral hygiene: No service: No Meds Allergies Allergy/AdvReac Type Severity Reaction Status Date / Time [place] And Derivatives Allergy Severe Hives Verified 11/15/23 14:16 strawberry Allergy Severe Hives Verified 11/15/23 14:16 Active Medications: Current Medications Acetaminophen (Acetaminophen 325 Mg Tablet) 650 mg PO Q6H PRN PRN Reason: Pain, Mild (Pain Scale 1-3) Amlodipine Besylate (Amlodipine Besylate 10 Mg Tablet) 10 mg PO DAILY [facility]; Protocol Calcium Carbonate (Calcium Carbonate 750 Mg Tab.Chew) 750 mg PO Q4H PRN PRN Reason: Indigestion Last Admin: 11/18/23 04:43 Dose: 750 mg Clonidine HCl (Clonidine Hcl 0.1 Mg Tablet) 0.1 mg PO BID [facility]; Protocol Last Admin: 11/17/23 20:46 Dose: 0.1 mg Hydralazine HCl (Hydralazine Hcl 20 Mg/Ml Vial) 10 mg IVPUSH Q4H PRN; Protocol PRN Reason: [id number] Last Admin: 11/17/23 17:20 Dose: 10 mg Metoprolol Succinate (Metoprolol Succinate Er 25 Mg Tab.Er.24h) 25 mg PO DAILY [facility]; Protocol Omeprazole (Omeprazole 20 Mg Capsule.Dr) 20 mg PO BID@0630,1630 [facility] Last Admin: 11/18/23 05:32 Dose: 20 mg Ondansetron HCl (Ondansetron Hcl 4 Mg/2 Ml Vial) 4 mg IVPUSH Q8H PRN PRN Reason: Nausea and Vomiting Quetiapine Fumarate (Quetiapine Fumarate 100 Mg Tablet) 100 mg PO BEDTIME [facility] Last Admin: 11/17/23 20:46 Dose: 100 mg Sodium Chloride (0.9 % Sodium Chloride Flush 3 Ml Syringe) 3 ml IVFLUSH QSHIFT [facility] Last Admin: 11/17/23 20:48 Dose: 3 ml Home Medications Medication Instructions Recorded Confirmed Last Taken Type clonidine HCl 0.1 mg tablet 0.1 mg PO BID 11/15/23 11/17/23 11/14/23 History metoprolol succinate 25 mg 25 mg PO DAILY 11/15/23 11/17/23 11/14/23 History tablet,extended release 24 hr quetiapine 100 mg tablet 100 mg PO BEDTIME 11/15/23 11/17/23 11/14/23 History Physical Exam Vital Signs: Last Vital Signs Temp 97.0 F 11/18/23 07:07 Pulse 104 H 11/18/23 07:07 Resp 20 11/18/23 07:07 BP 150/94 H 11/18/23 07:07 Pulse Ox 100 11/18/23 07:07 O2 Del Method Room Air 11/18/23 03:58 Const General: comfortable; No acute distress Orientation/consciousness: patient oriented x3 Eyes General: appearance normal, both eyes and all related structures Visual Simpson: normal visual simpson by confrontation Neck Neck: Yes supple and Yes no JVD Resp Effort & Inspection: normal respiratory effort and respiratory effort not decreased Auscultation: rhonchi Cardio Palpation: no palpable S3 and no palpable S4 Heart sounds: no rubs GI Inspection: Yes normal to inspection Palpation (GI): Soft to palpation Percussion: Yes normal to percussion Auscultation: normal bowel sounds General: Yes no CVA tenderness Back/Spine/Pelvis Back: no CVA tenderness Skin General skin exam: no petechiae and no purpura Neuro General: patient oriented x3 and no focal motor deficits Extrem General: No clubbing and No edema Results Lab Results 11/18/23 06:16 11/18/23 06:16 Lab results: Chemistry 11/18/23 06:16 Sodium 139 Potassium 3.6 Carbon Dioxide 27 BUN 19 H Creatinine 1.58 H Calcium 10.8 H Hematology 11/18/23 06:16 WBC 7.1 Hgb 16.0 Plt Count 246 Assessment and Plan (1) CKD (chronic kidney disease) stage 3, GFR 30-59 ml/min: Status: Acute (2) Hypertension: Status: Acute Plan 58-year-old man with history of longstanding hypertension and bipolar disorder with CKD. Arabella has CKD 3. Renal function close to baseline. Goal is to slow the portion disease. Hypertension. She had accelerated hypertension initially. Blood pressure seems better control. Underlying CKD could be contributing factor as well. For now agree with current medication. amlodipine 10 mg. Can increase beta-blockers baseline heart rate I will hold off on using ISHAN inhibitors or ARB until renal function stabilizes. Goal is to maintain blood pressure around 120-140 mmHg over the next 48 hours Keep her on low-sodium diet. Continue to avoid nephrotoxic agents. Procedures Date of Service Date of Service: 11/19/23
--- NOTE | 2023-11-18 08:53 | HO.PM.IMPN ---
Subjective Subjective Date of Service: 11/18/23 Review of Systems Follow up hypertensive urgency BP better today no nausea or vomiting Physical Exam Vital Signs: Vital Signs: Last Vital Signs Temp 97.0 F 11/18/23 07:07 Pulse 104 H 11/18/23 07:07 Resp 20 11/18/23 07:07 BP 150/94 H 11/18/23 07:07 Pulse Ox 100 11/18/23 07:07 O2 Del Method Room Air 11/18/23 03:58 Appearing in no acute distress lung sounds are clear to auscultation heart regular rate rhythm, clear S1, S2 positive bowel sounds, abdomen is soft, nontender neuro patient is alert x3, no focal deficits Objective Data Active Medications Acetaminophen (Acetaminophen 325 Mg Tablet) 650 mg PO Q6H PRN PRN Reason: Pain, Mild (Pain Scale 1-3) Amlodipine Besylate (Amlodipine Besylate 10 Mg Tablet) 10 mg PO DAILY [facility]; Protocol Calcium Carbonate (Calcium Carbonate 750 Mg Tab.Chew) 750 mg PO Q4H PRN PRN Reason: Indigestion Last Admin: 11/18/23 04:43 Dose: 750 mg Documented By: AMBROSE Clonidine HCl (Clonidine Hcl 0.1 Mg Tablet) 0.1 mg PO BID [facility]; Protocol Last Admin: 11/17/23 20:46 Dose: 0.1 mg Documented By: AMBROSE Hydralazine HCl (Hydralazine Hcl 20 Mg/Ml Vial) 10 mg IVPUSH Q4H PRN; Protocol PRN Reason: [id number] Last Admin: 11/17/23 17:20 Dose: 10 mg Documented By: JAY Metoprolol Succinate (Metoprolol Succinate Er 50 Mg Tab.Er.24h) 50 mg PO DAILY [facility]; Protocol Omeprazole (Omeprazole 20 Mg Capsule.Dr) 20 mg PO BID@0630,1630 [facility] Last Admin: 11/18/23 05:32 Dose: 20 mg Documented By: AMBROSE Ondansetron HCl (Ondansetron Hcl 4 Mg/2 Ml Vial) 4 mg IVPUSH Q8H PRN PRN Reason: Nausea and Vomiting Quetiapine Fumarate (Quetiapine Fumarate 100 Mg Tablet) 100 mg PO BEDTIME [facility] Last Admin: 11/17/23 20:46 Dose: 100 mg Documented By: AMBROSE Sodium Chloride (0.9 % Sodium Chloride Flush 3 Ml Syringe) 3 ml IVFLUSH QSHIFT [facility] Last Admin: 11/17/23 20:48 Dose: 3 ml Documented By: AMBROSE Labs 11/18/23 06:16 11/18/23 06:16 Labs: Laboratory Results - last 24 hr 11/18/23 06:16 MCV 87.1 MCH 31.7 MCHC 36.4 H RDW 12.7 Plt Count 246 MPV 9.7 Immature Gran % (Auto) 0.3 Neut % (Auto) 78.7 H Lymph % (Auto) 11.0 L Allen % (Auto) 8.9 Eos % (Auto) 0.7 Baso % (Auto) 0.4 Lymph # (Auto) 0.8 L Allen # (Auto) 0.6 Eos # (Auto) 0.1 Baso # (Auto) 0.0 Abs Immat Gran (auto) 0.02 Absolute Neuts (auto) 5.6 Absolute Nucleated RBC 0.000 Nucleated RBC % (auto) 0.0 Anion Gap 13 Estim Creat Clear Calc TNP Estimated GFR 33 Random Glucose 127 H Calcium 10.8 H Total Bilirubin 1.5 H AST 23 ALT 35 H Alkaline Phosphatase 90 Total Protein 7.7 Albumin 4.5 Assessment and Plan (1) Hypertension: Status: Acute (2) CKD (chronic kidney disease) stage 3, GFR 30-59 ml/min: Status: Acute Plan 58 year old women with c/o nausea for the past 3 days with no abd pain or discomfort. no fever, chills or infectious source noted. She has a hx of Hypertension and likely uncontrolled for some time now but reports that she has been compliant with her medications. Denies hx of alcohol and marijuana use. Transfer from to [email or web address] Hypertension urgency Increased amlodipine to 10 mg daily. continue clonidine and metoprolol increased to [address] with motion degradation but no definite acute hemorrhage in the non degraded area Hydralazine IV for SBP> 180 Nausea and vomiting. Resolved unknown etiology nausea and vomiting for 3 days no fever or leukocytosis no abd pain or tenderness Normal LFT's continue omeprazole 20 mg BID zofran prn GI consult pending CKD stage 3 likely at baseline but no previous labs to compare avoid nephrotoxins seen by nephrology, control BP Depression continue seroquel at night DVT prophylaxis with pneumatic compression boots Attending Dr. De La Cruz Full code continue hospital stay for treatment of hypertensive urgency requiring IV antihypertensive medication and IV antiemetic medication for nausea and vomiting. Quality Stroke Does the patient have a stroke diagnosis?: No VTE Prior VTE?: No VTE Risk Level:: Medical - moderate - high VTE Device Contraindication: N/A - Device Ordered VTE Drug Contraindication: Treatment Not Indicated
[2023-11-18] MEDS: Metoprolol Succinate ER 50 MG TAB.ER.24H PO (09:21)
[2023-11-18] MEDS: cloNIDine HCL 0.1 MG TABLET PO ×2 (09:21→20:35)
[2023-11-18] MEDS: amLODIPine Besylate 10 MG TABLET PO (09:21)
[2023-11-18] MEDS: 0.9 % Sodium Chloride Flush 3 ML SYRINGE IVFLUSH ×3 (09:22→20:36)
--- NOTE | 2023-11-18 09:40 | MHC.CM.PN ---
EMR REVIEWED, PT ADMITTED W/HYPERTENSIVE URGENCY, CM MET W/PT WHO HAS A SITTER AT BEDSIDE D/T +SI, PT REPORTS RECENTLY LOSING HER HOUSING ON 11/14 D/T [facility] WANTED TO KEEP PT ON [address] EVEN THOUGH HER LOVER , PT STATED MULTIPLE TIMES, I WANT TO KILL MYSELF, PT AWARE PLAN IS FOR [facility] AND FOR PT TO RETURN TO [facility]. PT VERIFIES PCP IS DR CALDWELL AT [facility], PT EDUCATED ON AND DECLINES TO COMPLETE A HCP AT THIS TIME SHE IS UNSURE WHO SHE WOULD NAME HER [facility].
[2023-11-18 11:28] VITALS: BP 154/98; PULSE 89; RESP 18; TEMP 37.1; O2SAT 100
[2023-11-18 16:00] VITALS: BP 140/70; PULSE 70; RESP 18; TEMP 36.3; O2SAT 100
[2023-11-18] MEDS: hydrALAZINE HCl 10 MG TABLET PO ×2 (17:57→20:35)
[2023-11-18 19:43] VITALS: BP 178/98; PULSE 84; RESP 19; TEMP 36.4; O2SAT 96
[2023-11-18] MEDS: QUEtiapine Fumarate 100 MG TABLET PO (20:34)
[2023-11-18 23:07] VITALS: BP 140/96; PULSE 84; RESP 20; TEMP 36.2; O2SAT 100
[2023-11-19 03:30] VITALS: BP 146/96; PULSE 81; RESP 20; TEMP 36.9; O2SAT 97
[2023-11-19] MEDS: Omeprazole 20 MG CAPSULE.DR PO (05:36)
[2023-11-19 07:14] VITALS: BP 142/80; PULSE 83; RESP 18; TEMP 36.3; O2SAT 97
[2023-11-19] MEDS: 0.9 % Sodium Chloride Flush 3 ML SYRINGE IVFLUSH (09:00)
[2023-11-19] MEDS: Metoprolol Succinate ER 50 MG TAB.ER.24H PO (09:00)
[2023-11-19] MEDS: cloNIDine HCL 0.1 MG TABLET PO (09:00)
[2023-11-19] MEDS: amLODIPine Besylate 10 MG TABLET PO (09:00)
[2023-11-19] MEDS: hydrALAZINE HCl 10 MG TABLET PO ×2 (09:00→14:22)
--- NOTE | 2023-11-19 09:48 | P.PNNP_ITS ---
Subjective Subjective Date of Service: 11/19/23 Interval history: Events noted. All blood pressure readings were reviewed. She denies any specific complaints today. Physical Exam 2 Vital Signs: Vital Signs: Last Vital Signs Temp 97.3 F 11/19/23 07:14 Pulse 83 11/19/23 07:14 Resp 18 11/19/23 07:14 BP 142/80 H 11/19/23 07:14 Pulse Ox 97 11/19/23 07:14 O2 Del Method Room Air 11/19/23 07:14 BMI result Body Mass Index 30.2 Const: General: comfortable; No acute distress Orientation/consciousness: p atient oriented x3 Eyes: General: appearance normal, both eyes and all related structures V isual Morrow: normal visual morrow by confrontation Neck: Neck: Yes supple and Yes no JVD Resp: Effort & Inspection: normal respiratory effort and respiratory effort not decreased Auscultation: rhonchi Cardio: Palpation: no palpable S3 and no palpable S4 Heart sounds: no rubs GI: Inspection: Yes normal to inspection Palpation (GI): Soft to palpation Percussion: Yes normal to percussion Auscultation: normal bowel sounds : General: Yes no CVA tenderness Back/Spine/Pelvis: Back: no CVA tenderness Skin: General skin exam: no petechiae and no purpura Neuro: General: patient oriented x3 and no focal motor deficits Extrem: General: No clubbing and No edema Objective Data Labs 11/18/23 06:16 11/18/23 06:16 Procedures Date of Service Date of Service: 11/19/23 Assessment & Plan Assessment and plan (1) CKD (chronic kidney disease) stage 3, GFR 30-59 ml/min: Status: Acute (2) Hypertension: Status: Acute Plan 58-year-old man with history of longstanding hypertension and bipolar disorder with CKD. Arabella has CKD 3. Renal function close to baseline. Goal is to slow the progression of kidney disease. Hypertension. She had accelerated hypertension initially. Blood pressure seems better control. Underlying CKD could be contributing factor as well. For now agree with current medication. amlodipine 10 mg. Can increase beta-blockers baseline heart rate I will hold off on using ISHAN inhibitors or ARB until renal function stabilizes. Goal is to maintain blood pressure around 120-140 mmHg over the next 48 hours Keep her on low-sodium diet. Continue to avoid nephrotoxic agents. Hypercalcemia. Check intact PTH and immunofixation. -ordered Time Spent With Patient Time: Total time managing care of this patient today ____ minutes. Progress Note: Quality Stroke Does the patient have a stroke diagnosis?: No
--- NOTE | 2023-11-19 11:05 | PM.DS ---
DS: Providers Provider Date of admission: 11/17/23 15:20 Primary care physician: Unknown Physician Consults: 11/17/23 13:39 Consult for Sitter Routine Reason for consultation: tx from m5 11/17/23 15:45 Consult to Nephrology Routine Consulting Provider: [facility] [place] [facility] Reason for consultation: ckd, hypertensive urgency 11/19/23 09:09 Consult to Care Team Routine Comment: Reason for consultation: medically clear DS: Diagnosis Discharge Diagnosis (1) CKD (chronic kidney disease) stage 3, GFR 30-59 ml/min: Status: Acute (2) Hypertension: Status: Acute DS: Summary Time Attestation Discharge Coordination Time: discharge time of ____ minutes Physical Exam Vital Signs: Vital Signs: Last Vital Signs Temp 97.3 F 11/19/23 07:14 Pulse 83 11/19/23 07:14 Resp 18 11/19/23 07:14 BP 142/80 H 11/19/23 07:14 Pulse Ox 97 11/19/23 07:14 O2 Del Method Room Air 11/19/23 07:14 BMI result Body Mass Index 30.2 Discharge Plan Discharge Anticipated Discharge Date/Time: 11/19/23 10:57 Patient Disposition: Xfer Psychiatric Hosp Discharge Diagnosis: Hypertensive urgency Nausea and vomiting Discharge Medications: New hydralazine 10 mg Tablet 10 mg PO TID Qty: 90 0RF Protocol: Hold for SBP< HOLD for SBP < : 90 metoprolol succinate 50 mg Tablet Extended Release 24 Hr 50 mg PO DAILY Qty: 30 0RF Protocol: Hold for SBP/HR < HOLD for SBP < : 90 HOLD for HR < : 60 amlodipine 10 mg Tablet 10 mg PO DAILY Qty: 30 0RF Protocol: Hold for SBP< HOLD for SBP < : 90 omeprazole 20 mg Capsule,Delayed Release(Dr/Ec) 20 mg PO BID@0630,1630 Qty: 30 0RF Continued clonidine HCl 0.1 mg tablet 0.1 mg PO BID quetiapine 100 mg tablet 100 mg PO BEDTIME Discontinued metoprolol succinate 25 mg tablet extended release 24 hr 25 mg PO DAILY Diet: Advance to usual diet Activity on Discharge: As tolerated Stand Alone Forms: Patient Portal Discharge page Health Concerns: Hypertensive urgency Nausea and vomiting Assessment: See discharge summary
--- NOTE | 2023-11-19 11:24 | P.DS_ITS ---
DS: Providers Provider Date of Service: 11/19/23 Date of admission: 11/17/23 15:20 Primary care physician: Unknown Physician Consults: 11/17/23 13:39 Consult for Sitter Routine Reason for consultation: tx from 11/17/23 15:45 Consult to Nephrology Routine Consulting Provider: [facility] Reason for consultation: ckd, hypertensive urgency 11/19/23 09:09 Consult to Care Team Routine Comment: Reason for consultation: medically clear DS: Diagnosis Discharge Diagnosis (1) CKD (chronic kidney disease) stage 3, GFR 30-59 ml/min: Status: Acute (2) Hypertension: Status: Acute DS: Summary Hospital Course Hospital Course: 58 year old women with hx of HTN and depression admitted to for mental health care and now transferred to [facility] tx of hypertensive urgency. She reports having nausea and vomiting for the past 3 days. She has also had elevated Blood pressure as well. She reports being diagnosed with HTN and CKD in early 2022 and reports compliance with her medications. She denied fever, chills, diarrhea, chest pain, sob, abdominal pain. Blood pressure was noted to be 177/114 a few minutes after the vomiting episode. But BP peaked at 220/100 during M5 stay. She was alert and oriented during the interview with no further urge to vomit. She reported that she ate a hamburger yesterday and vomiting it up but the RN stated that the patient just removed the piece of food from her mouth rather and did not vomit. Tot bili 1.3, AST and ALT wnl, creat 1.60, EKG showing SB with no ischemic changes. Tx from for hypertensive urgency. Increased amlodipine to 10 mg daily. continue clonidine and metoprolol increased to [address] with motion degradation but no definite acute hemorrhage in the non degraded area. Hydralazine IV used for SBP> 180. BP no controlled. Continue all medications. Nausea and vomiting. Resolved on admission. no abd pain or tenderness, normal LFT's. started on Omeprazole 20mg BID. CKD stage 3 at baseline, seen by nephrology, control BP Depression continue seroquel at night Time Attestation Discharge Coordination Time: discharge time of ____ minutes Quality: Safe Use of Opioids Does Pt have an Active Cancer Diagnosis on the Problem List?: No Quality: Stroke Does the patient have a stroke diagnosis?: No Physical Exam Vital Signs: Vital Signs: Last Vital Signs Temp 97.3 F 11/19/23 07:14 Pulse 83 11/19/23 07:14 Resp 18 11/19/23 07:14 BP 142/80 H 11/19/23 07:14 Pulse Ox 97 11/19/23 07:14 O2 Del Method Room Air 11/19/23 07:14 BMI result Body Mass Index 30.2 Appearing in no acute distress head is normocephalic atraumatic eyes pupils are PERRLA sclera is anicteric mouth throat mucous membranes are intact and moist neck is supple no lymphadenopathy, no JVD noted lung sounds are clear to auscultation heart regular rate rhythm, clear S1, S2 positive bowel sounds, abdomen is soft, nontender neuro patient is alert x3, no focal deficits Discharge Plan Discharge Anticipated Discharge Date/Time: 11/19/23 10:57 Patient Disposition: Xfer Psychiatric Hosp Discharge Diagnosis: Hypertensive urgency Nausea and vomiting Discharge Medications: New hydralazine 10 mg Tablet 10 mg PO TID Qty: 90 0RF Protocol: Hold for SBP< HOLD for SBP < : 90 metoprolol succinate 50 mg Tablet Extended Release 24 Hr 50 mg PO DAILY Qty: 30 0RF Protocol: Hold for SBP/HR < HOLD for SBP < : 90 HOLD for HR < : 60 amlodipine 10 mg Tablet 10 mg PO DAILY Qty: 30 0RF Protocol: Hold for SBP< HOLD for SBP < : 90 omeprazole 20 mg Capsule,Delayed Release(Dr/Ec) 20 mg PO BID@0630,1630 Qty: 30 0RF Continued clonidine HCl 0.1 mg tablet 0.1 mg PO BID quetiapine 100 mg tablet 100 mg PO BEDTIME Discontinued metoprolol succinate 25 mg tablet extended release 24 hr 25 mg PO DAILY Discharge Orders: Discharge Order (Routine); Ordered 11/19/23 Ordered By: Adelina Galeano Diet: Advance to usual diet Activity on Discharge: As tolerated Stand Alone Forms: Patient Portal Discharge page Health Concerns: Hypertensive urgency Nausea and vomiting Plan of Treatment: transfer to for mental health care Assessment: See discharge summary
[2023-11-19 11:51] VITALS: BP 125/59; PULSE 80; RESP 18; TEMP 36.8; O2SAT 97
[2023-11-19 14:25] VITALS: BP 119/81
--- NOTE | 2023-11-19 14:33 | MHC.CM.PN ---
PT DISCHARGING TO [facility], HOSPITLIST UNSURE IF IT WILL BE M3 OR M5, [facility] [place] STAFF FOR TRANSPORT
[2023-11-19 15:41] VITALS: BP 143/92; PULSE 100; RESP 20; TEMP 36.9; O2SAT 98
== END 2023-11-19 16:42 | DRG 753 ==
PROVIDERS: Admitting Provider Nurse Practitioner Acute Care; Visit Provider Nurse Practitioner Acute Care
DX: F31.9 Bipolar disorder, unspecified (principal); E83.52 Hypercalcemia; I16.0 Hypertensive urgency; I12.9 Hypertensive chronic kidney disease with stage 1 through stage 4 chronic kidney disease, or unspecified chronic kidney disease; N18.30 Chronic kidney disease, stage 3 unspecified; Z79.899 Other long term (current) drug therapy
CPT/HCPCS: 36415; 80053; 85025; J0360; J1920; S9485

== ENCOUNTER → 2023-11-17 15:20 | Outpatient (BNV) | payer MEDICAID, SELFPAY | PROVIDERS: Admitting Provider Nurse Practitioner Acute Care; Visit Provider Nurse Practitioner Acute Care | DX: R11.2 Nausea with vomiting, unspecified (principal) | CPT/HCPCS: 99223; 99232; 99239 ==

== ENCOUNTER → 2023-11-17 15:20 | Outpatient (BNV) | payer MEDICAID, SELFPAY | PROVIDERS: Admitting Provider Nurse Practitioner Acute Care; Visit Provider Internal Medicine Hypertension Specialist | DX: I12.9 Hypertensive chronic kidney disease with stage 1 through stage 4 chronic kidney disease, or unspecified chronic kidney disease (principal); N18.30 Chronic kidney disease, stage 3 unspecified | CPT/HCPCS: 99223; 99232 ==

== ENCOUNTER 2023-11-19 16:55 | Inpatient (IN) | payer OTHER, SELFPAY ==
--- NOTE | 2023-11-19 17:30 | PC.ADMIT ---
Arabella is a 58 year old female, admitted from [facility] to M3 on a CV for treatment of unspecified depression. Per crisis eval pt came from [facility] after making suicidal statements and threatening staff. Pt was initially admitted to M5 but transferred to [facility] after experiencing hypertensive crisis. Upon arrival to pt is A&Ox4. Pt was cooperative with skin check but quickly became irritable and declined to participate in admission assessment. Pt presents with labile mood. Affect is congruent. Pt self reported 10lb weight loss since being in the hospital. Pt appears to have a poor appetite and refused her dinner because she reported having diarrhea. Pt refused PRN. Per crisis eval pt was incarcerated for 18 years r/t dealing drugs. Pt tox screen from 11/15/23 was positive fentanyl. Pt is placed on 15 minute safety checks.
[2023-11-19 18:00] VITALS: BP 148/104; PULSE 99; RESP 16; TEMP 35.7; O2SAT 96
[2023-11-19 21:00] VITALS: BP 155/106; PULSE 116; RESP 16; TEMP 36.6; O2SAT 96
[2023-11-19] MEDS: QUEtiapine Fumarate 100 MG TABLET PO (21:03)
[2023-11-19] MEDS: hydrOXYzine HCL 25 MG TABLET PO (21:03)
[2023-11-19] MEDS: hydrALAZINE HCl 10 MG TABLET PO (21:03)
[2023-11-19] MEDS: traZODone HCL 50 MG TABLET PO (21:03)
[2023-11-19] MEDS: cloNIDine HCL 0.1 MG TABLET PO (21:05)
[2023-11-20 07:33] VITALS: BP 131/89; PULSE 120; RESP 18; TEMP 36.2; O2SAT 99
[2023-11-20 08:34] LABS: Alanine Aminotransferase 43 U/L (0-31); Albumin Level 4.5 g/dL (3.5-5.0); Alkaline Phosphatase 85 U/L (39-117); Anion Gap 15 (12-20); Aspartate Amino Transferase 23 U/L (5-31); Bilirubin Total 1.8 mg/dL (0.0-1.0); Blood Urea Nitrogen 27 mg/dL (9-16); Calcium 10.6 mg/dL (8.4-10.2); Carbon Dioxide 22 mmol/L (22-29); Chloride 106 mmol/L (96-108); Cholesterol 221 mg/dL (<200); Estimated Glomerular Filt Rate 33; Glucose Fasting 151 mg/dL (60-99); HDL Cholesterol 51 mg/dL (>40); LDL Cholesterol Calculated 149 mg/dL (<100); Potassium 3.5 mmol/L (3.3-5.1); Sodium 139 mmol/L (135-145); Total Protein 7.8 g/dL (6.5-8.0); Triglycerides 105 mg/dL (<150)
[2023-11-20] MEDS: Omeprazole 20 MG CAPSULE.DR PO ×2 (08:42→15:42)
[2023-11-20] MEDS: amLODIPine Besylate 10 MG TABLET PO (08:43)
[2023-11-20] MEDS: cloNIDine HCL 0.1 MG TABLET PO ×2 (08:44→20:15)
[2023-11-20] MEDS: Metoprolol Succinate ER 50 MG TAB.ER.24H PO (08:44)
[2023-11-20] MEDS: hydrALAZINE HCl 10 MG TABLET PO ×3 (08:44→20:15)
--- NOTE | 2023-11-20 09:36 | MHC.CLN ---
NUTRITION CONSULT FOR REPORTED 10# WEIGHT LOSS. REVIEWED EMR SINCE 11/14 ED VISIT. SHOWS WEIGHT ON 11/14=72.575 KG (ED VISIT). WEIGHT ON BEDSCALE 11/17=87.6 KG (MED TELE ADM). PATIENT REPORTED 10# WEIGHT LOSS SINCE HOSPITAL ADM. DATA DOES NOT SUPPORT 10# WEIGHT LOSS X 4 DAYS. PATIENT WITH MULTIPLE TRANSFERS: TO ED 11/14; TO ; TO MED TELE; TO ADULT PSYCH. DIET=2 G SODIUM. RECOMMEND CONSIDER CHANGE OF DIET TO REGULAR AND ENCOURAGE LOWER SODIUM FOODS AND SNACKS ABLE. REGULAR DIET WOULD PROVIDE GREATER FOOD CHOICES. PLEASE CONSULT RD WITH ANY ADDITIONAL NUTRITION CONCERNS.
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
[2023-11-20 15:52] VITALS: BP 157/107; PULSE 106
[2023-11-20 19:55] VITALS: BP 140/88; PULSE 79; RESP 16; TEMP 36.9; O2SAT 98
[2023-11-20] MEDS: hydrOXYzine HCL 25 MG TABLET PO (20:15)
[2023-11-20] MEDS: QUEtiapine Fumarate 200 MG TABLET PO (20:15)
[2023-11-21] MEDS: Omeprazole 20 MG CAPSULE.DR PO (06:08)
[2023-11-21] MEDS: hydrOXYzine HCL 25 MG TABLET PO ×2 (06:10→20:21)
[2023-11-21 08:01] VITALS: BP 175/108; PULSE 99; RESP 16; TEMP 36.8; O2SAT 98
[2023-11-21] MEDS: Metoprolol Succinate ER 50 MG TAB.ER.24H PO (08:46)
[2023-11-21] MEDS: amLODIPine Besylate 10 MG TABLET PO (08:46)
[2023-11-21] MEDS: cloNIDine HCL 0.1 MG TABLET PO ×2 (08:47→20:21)
[2023-11-21] MEDS: hydrALAZINE HCl 10 MG TABLET PO ×3 (08:47→20:20)
--- NOTE | 2023-11-21 11:03 | HO.PSYCHPN ---
Subjective Subjective Date of Service: 11/21/23 Reason For Visit: crisis Subjective Notes: Conditional Voluntary Interim History: Pt in bed, minimally visible in the unit but constantly asking to speak with SW. Pt initially told this director underwriter sales she would not like to see psych provider today- too depressed but later continued talking and was difficult to interrupt. She continues to report suicidal ideation however, her affect appear much brighter than reported mood. No behavioral concerns. Mental Status Exam Mental Status Exam Narrative: adequately dressed and groomed. PMA of frequent positional changes and gestures, leaning in and back. superficially cooperative with interview; variably, really. speech pressured. thoughts tangential. affect hyper-intense, mod-labile. mood i'm very depressed. endorses SI with plan to hang herself with sheets. denies HI. endorses CAH to kill herself for the past 13 months. Diagnostics Vital Signs (24Hr): Vital Signs - 24 hr 11/20/23 15:52 11/20/23 19:55 11/21/23 08:01 Temperature 98.4 F 98.2 F Pulse Rate 106 H 79 99 Respiratory Rate 16 16 Blood Pressure 157/107 H 140/88 H 175/108 H Pulse Oximetry 98 98 Oxygen Delivery Method Room Air Room Air Labs 11/20/23 08:03 Labs: Laboratory Results - last 48 hr 11/20/23 08:03 Sodium 139 Potassium 3.5 Chloride 106 Carbon Dioxide 22 Anion Gap 15 BUN 27 H Creatinine 1.58 H Estim Creat Clear Calc TNP Estimated GFR 33 Fasting Glucose 151 H Calcium 10.6 H Total Bilirubin 1.8 H AST 23 ALT 43 H Alkaline Phosphatase 85 Total Protein 7.8 Albumin 4.5 Triglycerides 105 Cholesterol 221 H LDL Cholesterol, Calc 149 H HDL Cholesterol 51 Medications Medications Current Medications Acetaminophen (Acetaminophen 325 Mg Tablet) 650 mg PO Q6H PRN PRN Reason: Pain, Mild (Pain Scale 1-3) Al Hydroxide/Mg Hydroxide (Magnesium Hydrox/Alum Hydrox 30 Ml Oral.Susp) 30 ml PO Q6H PRN PRN Reason: Heartburn/Nausea Amlodipine Besylate (Amlodipine Besylate 10 Mg Tablet) 10 mg PO DAILY [facility]; Protocol Last Admin: 11/21/23 08:46 Dose: 10 mg Calcium Carbonate (Calcium Carbonate 750 Mg Tab.Chew) 750 mg PO Q4H PRN PRN Reason: Indigestion Clonidine HCl (Clonidine Hcl 0.1 Mg Tablet) 0.1 mg PO BID [facility]; Protocol Last Admin: 11/21/23 08:47 Dose: 0.1 mg Hydralazine HCl (Hydralazine Hcl 10 Mg Tablet) 10 mg PO TID [facility]; Protocol Last Admin: 11/21/23 08:47 Dose: 10 mg Hydroxyzine HCl (Hydroxyzine Hcl 25 Mg Tablet) 25 mg PO Q6H PRN PRN Reason: Anxiety Last Admin: 11/21/23 06:10 Dose: 25 mg Magnesium Hydroxide (Milk Of Magnesia 30 Ml Oral.Susp) 30 ml PO DAILY PRN PRN Reason: Constipation Metoprolol Succinate (Metoprolol Succinate Er 50 Mg Tab.Er.24h) 50 mg PO DAILY [facility]; Protocol Last Admin: 11/21/23 08:46 Dose: 50 mg Omeprazole (Omeprazole 20 Mg Capsule.Dr) 20 mg PO BID@0630,1630 [facility] Last Admin: 11/21/23 06:08 Dose: 20 mg Quetiapine Fumarate (Quetiapine Fumarate 200 Mg Tablet) 200 mg PO BEDTIME [facility] Last Admin: 11/20/23 20:15 Dose: 200 mg Allergies Allergies Allergy/AdvReac Type Severity Reaction Status Date / Time [place] And Derivatives Allergy Severe Hives Verified 11/15/23 14:16 strawberry Allergy Severe Hives Verified 11/15/23 14:16 Assessment & Plan Assessment & Plan (1) Bipolar 1 disorder: Status: Acute Code(s): F31.9 - Bipolar disorder, unspecified (2) Hypertension: Status: Acute Code(s): I10 - Essential (primary) hypertension Plan increase seroquel from 100 QHS to 200 QHS. pt declining to consider evidence-based mood stabilizers. continue to encourage appropriate medication at appropriate doses. anti-HTN as indicated. 11/20 continue tx. Reason for continued inpatient stay Substantial Risk for: harm to self Time Spent With Patient Time: Total time managing care of this patient today ____ minutes.
[2023-11-21 20:20] VITALS: BP 136/92; PULSE 94; RESP 18; TEMP 36.6; O2SAT 98
[2023-11-21] MEDS: QUEtiapine Fumarate 200 MG TABLET PO (20:21)
[2023-11-22 06:00] VITALS: BP 156/92; PULSE 106; RESP 14; TEMP 36.1; O2SAT 98
[2023-11-22] MEDS: cloNIDine HCL 0.1 MG TABLET PO ×2 (08:59→20:49)
[2023-11-22] MEDS: hydrALAZINE HCl 10 MG TABLET PO ×3 (08:59→20:50)
[2023-11-22] MEDS: Metoprolol Succinate ER 50 MG TAB.ER.24H PO (08:59)
[2023-11-22] MEDS: amLODIPine Besylate 10 MG TABLET PO (09:00)
--- NOTE | 2023-11-22 14:12 | HO.PSYCHPN ---
Subjective Subjective Date of Service: 11/22/23 Reason For Visit: crisis Interim History: seen with ANNE Gage. pt irritable, mod -labile, delusional, grandiose, tangential. states she did not sleep well last night and is interested in increasing HS seroquel dosing from 200 mg to 300 mg QHS. also 100 mg seroquel QHS PRN insomnia. pt asking for benadryl to help nap in the day, suggested more seroquel, which pt agreed to. pt then decided to end interview, summarily. per staff, irritable, labile, agitated. refusing to get out of chair, demanding staff fetch items for her. appeared to have slept all NOC. Mental Status Exam Mental Status Exam Narrative: adequately dressed and groomed. PMA of frequent positional changes and gestures, leaning in and back. superficially cooperative with interview; variable, really. speech pressured. thoughts tangential. affect hyper-intense, mod-labile. mood i'm very depressed. endorses SI but without plan on unit. no HI/AVH expressed. Diagnostics Vital Signs (24Hr): Vital Signs - 24 hr 11/21/23 20:20 11/22/23 06:00 Temperature 98 F 97.0 F Pulse Rate 94 106 H Respiratory Rate 18 14 Blood Pressure 136/92 H 156/92 H Pulse Oximetry 98 98 Oxygen Delivery Method Room Air Room Air Labs 11/20/23 08:03 Medications Medications Current Medications Acetaminophen (Acetaminophen 325 Mg Tablet) 650 mg PO Q6H PRN PRN Reason: Pain, Mild (Pain Scale 1-3) Al Hydroxide/Mg Hydroxide (Magnesium Hydrox/Alum Hydrox 30 Ml Oral.Susp) 30 ml PO Q6H PRN PRN Reason: Heartburn/Nausea Amlodipine Besylate (Amlodipine Besylate 10 Mg Tablet) 10 mg PO DAILY [facility]; Protocol Last Admin: 11/22/23 09:00 Dose: 10 mg Benzocaine (Throat Lozenge, Medicated Lozenge) 1 lozenge MUCOUS MEM Q1H PRN PRN Reason: Sore Throat Calcium Carbonate (Calcium Carbonate 750 Mg Tab.Chew) 750 mg PO Q4H PRN PRN Reason: Indigestion Clonidine HCl (Clonidine Hcl 0.1 Mg Tablet) 0.1 mg PO BID [facility]; Protocol Last Admin: 11/22/23 08:59 Dose: 0.1 mg Hydralazine HCl (Hydralazine Hcl 10 Mg Tablet) 10 mg PO TID [facility]; Protocol Last Admin: 11/22/23 08:59 Dose: 10 mg Magnesium Hydroxide (Milk Of Magnesia 30 Ml Oral.Susp) 30 ml PO DAILY PRN PRN Reason: Constipation Metoprolol Succinate (Metoprolol Succinate Er 50 Mg Tab.Er.24h) 50 mg PO DAILY [facility]; Protocol Last Admin: 11/22/23 08:59 Dose: 50 mg Omeprazole (Omeprazole 20 Mg Capsule.Dr) 20 mg PO BID@0630,1630 [facility] Last Admin: 11/22/23 01:13 Dose: Not Given Quetiapine Fumarate (Quetiapine Fumarate 300 Mg Tablet) 300 mg PO BEDTIME [facility] Quetiapine Fumarate (Quetiapine Fumarate 100 Mg Tablet) 100 mg PO BEDTIME PRN PRN Reason: insomnia Quetiapine Fumarate (Quetiapine Fumarate 50 Mg Tablet) 50 mg PO Q4H PRN PRN Reason: agitation/anxiety Allergies Allergies Allergy/AdvReac Type Severity Reaction Status Date / Time [place] And Derivatives Allergy Severe Hives Verified 11/15/23 14:16 strawberry Allergy Severe Hives Verified 11/15/23 14:16 Assessment & Plan Assessment & Plan (1) Bipolar 1 disorder: Status: Acute Code(s): F31.9 - Bipolar disorder, unspecified (2) Hypertension: Status: Acute Code(s): I10 - Essential (primary) hypertension Plan increase seroquel from 100 QHS to 200 QHS. pt declining to consider evidence-based mood stabilizers. continue to encourage appropriate medication at appropriate doses. anti-HTN as indicated. 11/20 continue tx. 11/21: increase HS seroquel to 300 mg, with 100 mg PRN. add seroquel 50 PRN Q4H. otherwise continue current mgmt. remains quite manic. Reason for continued inpatient stay Substantial Risk for: harm to others, inability to function and rapid decompensation Time Spent With Patient Time: Total time managing care of this patient today __25__ minutes.
[2023-11-22] MEDS: Omeprazole 20 MG CAPSULE.DR PO (16:41)
[2023-11-22 19:20] VITALS: BP 148/95; PULSE 97; RESP 18; TEMP 36.1; O2SAT 99
[2023-11-22] MEDS: QUEtiapine Fumarate 300 MG TABLET PO (20:50)
[2023-11-23] MEDS: QUEtiapine Fumarate 50 MG TABLET PO ×2 (05:53→12:24)
[2023-11-23] MEDS: Throat Lozenge, Medicated LOZENGE 1 LOZENGE MUCOUS MEM ×5 (06:17→21:03)
[2023-11-23 07:50] VITALS: BP 143/89; PULSE 91; RESP 16; O2SAT 99
[2023-11-23] MEDS: hydrALAZINE HCl 10 MG TABLET PO ×3 (09:07→21:02)
[2023-11-23] MEDS: amLODIPine Besylate 10 MG TABLET PO (09:08)
[2023-11-23] MEDS: cloNIDine HCL 0.1 MG TABLET PO ×2 (09:08→21:03)
[2023-11-23] MEDS: Metoprolol Succinate ER 50 MG TAB.ER.24H PO (09:08)
[2023-11-23] MEDS: Omeprazole 20 MG CAPSULE.DR PO (09:09)
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
[2023-11-23 14:50] VITALS: BP 144/102; PULSE 89
[2023-11-23 21:00] VITALS: BP 142/98; PULSE 94; RESP 16; TEMP 36.3; O2SAT 98
[2023-11-23] MEDS: QUEtiapine Fumarate 300 MG TABLET PO (21:03)
[2023-11-24 08:15] VITALS: BP 137/86; PULSE 110; TEMP 36.6; O2SAT 96
[2023-11-24] MEDS: Metoprolol Succinate ER 50 MG TAB.ER.24H PO (08:32)
[2023-11-24] MEDS: hydrALAZINE HCl 10 MG TABLET PO ×3 (08:34→20:56)
[2023-11-24] MEDS: Omeprazole 20 MG CAPSULE.DR PO ×2 (08:35→16:11)
[2023-11-24] MEDS: amLODIPine Besylate 10 MG TABLET PO (08:35)
[2023-11-24] MEDS: cloNIDine HCL 0.1 MG TABLET PO ×2 (08:35→20:57)
[2023-11-24] MEDS: Throat Lozenge, Medicated LOZENGE 1 LOZENGE MUCOUS MEM ×6 (09:21→20:56)
--- NOTE | 2023-11-24 14:10 | P.PNPSI_ITS ---
Subjective Subjective Date of Service: 11/24/23 Reason For Visit: crisis Interim History: Slightly less pressured and labile at times. Still paranoid if somebody calls me a dog again, I will call my fabrication supervisor. I'm not from the [facility]. I'm Religious . Otherwise is isolative in sensory room, enjoys headphones and sleeping okay. Does not want med changes for now Medication Compliance: Yes Side effects from medications: No Attending Groups: Intermittent Review of Systems Review of Systems Unremarkable Mental Status Exam Mental Status Exam Narrative: adequately dressed and groomed. PMA of frequent positional changes and gestures, leaning in and back. superficially cooperative with interview; variable. speech pressured. thoughts tangential. affect slightly less intense, mod-labile. mood i'm ok. Denied SI. Does appear paranoid. No HI/AVH expressed. Diagnostics Vital Signs (24Hr): Vital Signs - 24 hr 11/23/23 14:50 11/23/23 21:00 11/24/23 08:15 Temperature 97.4 F 97.9 F Pulse Rate 89 94 110 H Respiratory Rate 16 Blood Pressure 144/102 H 142/98 H 137/86 Pulse Oximetry 98 96 Oxygen Delivery Method Room Air Room Air Labs 11/20/23 08:03 Medications Medications Current Medications Acetaminophen (Acetaminophen 325 Mg Tablet) 650 mg PO Q6H PRN PRN Reason: Pain, Mild (Pain Scale 1-3) Al Hydroxide/Mg Hydroxide (Magnesium Hydrox/Alum Hydrox 30 Ml Oral.Susp) 30 ml PO Q6H PRN PRN Reason: Heartburn/Nausea Amlodipine Besylate (Amlodipine Besylate 10 Mg Tablet) 10 mg PO DAILY [facility]; Protocol Last Admin: 11/24/23 08:35 Dose: 10 mg Benzocaine (Throat Lozenge, Medicated Lozenge) 1 lozenge MUCOUS MEM Q1H PRN PRN Reason: Sore Throat Last Admin: 11/24/23 13:00 Dose: 1 lozenge Calcium Carbonate (Calcium Carbonate 750 Mg Tab.Chew) 750 mg PO Q4H PRN PRN Reason: Indigestion Clonidine HCl (Clonidine Hcl 0.1 Mg Tablet) 0.1 mg PO BID [facility]; Protocol Last Admin: 11/24/23 08:35 Dose: 0.1 mg Hydralazine HCl (Hydralazine Hcl 10 Mg Tablet) 10 mg PO TID [facility]; Protocol Last Admin: 11/24/23 08:34 Dose: 10 mg Magnesium Hydroxide (Milk Of Magnesia 30 Ml Oral.Susp) 30 ml PO DAILY PRN PRN Reason: Constipation Metoprolol Succinate (Metoprolol Succinate Er 50 Mg Tab.Er.24h) 50 mg PO DAILY [facility]; Protocol Last Admin: 11/24/23 08:32 Dose: 50 mg Omeprazole (Omeprazole 20 Mg Capsule.Dr) 20 mg PO BID@0630,1630 [facility] Last Admin: 11/24/23 08:35 Dose: 20 mg Quetiapine Fumarate (Quetiapine Fumarate 300 Mg Tablet) 300 mg PO BEDTIME [facility] Last Admin: 11/23/23 21:03 Dose: 300 mg Quetiapine Fumarate (Quetiapine Fumarate 100 Mg Tablet) 100 mg PO BEDTIME PRN PRN Reason: insomnia Quetiapine Fumarate (Quetiapine Fumarate 50 Mg Tablet) 50 mg PO Q4H PRN PRN Reason: agitation/anxiety Last Admin: 11/23/23 12:24 Dose: 50 mg Allergies Allergies Allergy/AdvReac Type Severity Reaction Status Date / Time [place] And Derivatives Allergy Severe Hives Verified 11/15/23 14:16 strawberry Allergy Severe Hives Verified 11/15/23 14:16 Assessment & Plan Assessment & Plan (1) Bipolar 1 disorder: Status: Acute Code(s): F31.9 - Bipolar disorder, unspecified (2) Hypertension: Status: Acute Code(s): I10 - Essential (primary) hypertension Plan increase seroquel from 100 QHS to 200 QHS. pt declining to consider evidence-based mood stabilizers. continue to encourage appropriate medication at appropriate doses. anti-HTN as indicated. 11/20 continue tx. 11/21: increase HS seroquel to 300 mg, with 100 mg PRN. add seroquel 50 PRN Q4H. otherwise continue current mgmt. remains quite manic. 11/23/2023: No changes to current regimen as Seroquel just increased yesterday 11/23: declined seroquel change/increase Reason for continued inpatient stay Substantial Risk for: inability to function and rapid decompensation Time Spent With Patient Time: Total time managing care of this patient today ____ minutes.
[2023-11-24] MEDS: Loperamide HCl 2 MG CAPSULE 4 MG PO (18:40)
[2023-11-24 20:30] VITALS: BP 131/104; PULSE 16; RESP 16; TEMP 37.1; O2SAT 97
[2023-11-24] MEDS: QUEtiapine Fumarate 300 MG TABLET PO (20:55)
[2023-11-24 21:45] VITALS: BP 132/98; PULSE 87; RESP 16
[2023-11-25] MEDS: Throat Lozenge, Medicated LOZENGE 1 LOZENGE MUCOUS MEM ×5 (02:52→16:37)
[2023-11-25] MEDS: Omeprazole 20 MG CAPSULE.DR PO ×2 (06:54→15:59)
[2023-11-25 08:16] VITALS: BP 133/87; PULSE 107; RESP 18; TEMP 36.4; O2SAT 95
[2023-11-25] MEDS: cloNIDine HCL 0.1 MG TABLET PO (09:57)
[2023-11-25] MEDS: hydrALAZINE HCl 10 MG TABLET PO ×2 (09:57→15:59)
[2023-11-25] MEDS: Metoprolol Succinate ER 50 MG TAB.ER.24H PO (09:58)
[2023-11-25] MEDS: amLODIPine Besylate 10 MG TABLET PO (09:58)
[2023-11-25 11:06] LABS: Influenza A PCR NEGATIVE (Negative); Influenza B PCR NEGATIVE (Negative); Resp Syncy Virus RNA Qual PCR NEGATIVE (Negative); SARS COV2 PCR INHOUSE POSITIVE (Negative)
[2023-11-25] MEDS: QUEtiapine Fumarate 50 MG TABLET PO (13:39)
--- NOTE | 2023-11-25 16:06 | P.PNPSI_ITS ---
Subjective Subjective Date of Service: 11/25/23 Reason For Visit: crisis Interim History: c/o poor sleep, URI Sx. agrees to schedule a dose of seroquel 50 at 130 pm for a nap. declines to increase her HS dose of seroquel above 300 mg. euphoric today, less irritable. per staff Q5 minute checks. +SI, no intent. asking for podiatry. some diarrhea, sore throat. labile, irritable. dep/anx 06/25. disrupted sleep. very little sleep. COVID POS. Mental Status Exam Mental Status Exam Narrative: adequately dressed and groomed. PMA of frequent positional changes and gestures. superficially cooperative with interview; variable. speech pressured. thoughts tangential. affect slightly less intense, mod-labile. mood euphoric. +SI. No HI/AVH expressed. Diagnostics Vital Signs (24Hr): Vital Signs - 24 hr 11/24/23 20:30 11/24/23 21:45 11/25/23 08:16 Temperature 98.8 F 97.5 F Pulse Rate 16 L 87 107 H Respiratory Rate 16 16 18 Blood Pressure 131/104 H 132/98 H 133/87 Pulse Oximetry 97 95 Oxygen Delivery Method Room Air Room Air Labs 11/20/23 08:03 Labs: Laboratory Results - last 48 hr 11/25/23 10:15 Influenza Type A (PCR) NEGATIVE Influenza Type B (PCR) NEGATIVE RSV RNA Qual (PCR) NEGATIVE SARS-CoV-2 RNA (RT-PCR) POSITIVE [facility] Medications Medications Current Medications Acetaminophen (Acetaminophen 325 Mg Tablet) 650 mg PO Q6H PRN PRN Reason: Pain, Mild (Pain Scale 1-3) Al Hydroxide/Mg Hydroxide (Magnesium Hydrox/Alum Hydrox 30 Ml Oral.Susp) 30 ml PO Q6H PRN PRN Reason: Heartburn/Nausea Amlodipine Besylate (Amlodipine Besylate 10 Mg Tablet) 10 mg PO DAILY [facility]; Protocol Last Admin: 11/25/23 09:58 Dose: 10 mg Benzocaine (Throat Lozenge, Medicated Lozenge) 1 lozenge MUCOUS MEM Q1H PRN PRN Reason: Sore Throat Last Admin: 11/25/23 13:39 Dose: 1 lozenge Calcium Carbonate (Calcium Carbonate 750 Mg Tab.Chew) 750 mg PO Q4H PRN PRN Reason: Indigestion Clonidine HCl (Clonidine Hcl 0.1 Mg Tablet) 0.1 mg PO BID [facility]; Protocol Last Admin: 11/25/23 09:57 Dose: 0.1 mg Hydralazine HCl (Hydralazine Hcl 10 Mg Tablet) 10 mg PO TID [facility]; Protocol Last Admin: 11/25/23 15:59 Dose: 10 mg Loperamide HCl (Loperamide Hcl 2 Mg Capsule) 2 mg PO Q6H PRN PRN Reason: loose stool Magnesium Hydroxide (Milk Of Magnesia 30 Ml Oral.Susp) 30 ml PO DAILY PRN PRN Reason: Constipation Metoprolol Succinate (Metoprolol Succinate Er 50 Mg Tab.Er.24h) 50 mg PO DAILY [facility]; Protocol Last Admin: 11/25/23 09:58 Dose: 50 mg Omeprazole (Omeprazole 20 Mg Capsule.Dr) 20 mg PO BID@0630,1630 [facility] Last Admin: 11/25/23 15:59 Dose: 20 mg Quetiapine Fumarate (Quetiapine Fumarate 300 Mg Tablet) 300 mg PO BEDTIME [facility] Last Admin: 11/24/23 20:55 Dose: 300 mg Quetiapine Fumarate (Quetiapine Fumarate 100 Mg Tablet) 100 mg PO BEDTIME PRN PRN Reason: insomnia Quetiapine Fumarate (Quetiapine Fumarate 50 Mg Tablet) 50 mg PO Q4H PRN PRN Reason: agitation/anxiety Last Admin: 11/23/23 12:24 Dose: 50 mg Quetiapine Fumarate (Quetiapine Fumarate 50 Mg Tablet) 50 mg PO DAILY@1330 [facility] Last Admin: 11/25/23 13:39 Dose: 50 mg Allergies Allergies Allergy/AdvReac Type Severity Reaction Status Date / Time [place] And Derivatives Allergy Severe Hives Verified 11/15/23 14:16 strawberry Allergy Severe Hives Verified 11/15/23 14:16 Assessment & Plan Assessment & Plan (1) Bipolar 1 disorder: Status: Acute Code(s): F31.9 - Bipolar disorder, unspecified (2) Hypertension: Status: Inactive Code(s): I10 - Essential (primary) hypertension Plan increase seroquel from 100 QHS to 200 QHS. pt declining to consider evidence-based mood stabilizers. continue to encourage appropriate medication at appropriate doses. anti-HTN as indicated. 11/20 continue tx. 11/21: increase HS seroquel to 300 mg, with 100 mg PRN. add seroquel 50 PRN Q4H. otherwise continue current mgmt. remains quite manic. 11/23/2023: No changes to current regimen as Seroquel just increased yesterday 11/23: declined seroquel change/increase 11/24: declined HS seroquel increase, agreed to add a dose of 50 mg at 1330. continues manic, somewhat attenuated from earlier. Reason for continued inpatient stay Substantial Risk for: harm to self, harm to others, inability to function and rapid decompensation Time Spent With Patient Time: Total time managing care of this patient today __25__ minutes.
[2023-11-25 21:00] VITALS: BP 133/87; PULSE 107; RESP 18; TEMP 36.4; O2SAT 95
[2023-11-26] MEDS: Throat Lozenge, Medicated LOZENGE 1 LOZENGE MUCOUS MEM ×4 (02:19→20:21)
[2023-11-26 08:21] VITALS: BP 179/106; PULSE 88; RESP 16; TEMP 36.4; O2SAT 98
[2023-11-26] MEDS: Metoprolol Succinate ER 50 MG TAB.ER.24H PO (08:48)
[2023-11-26] MEDS: cloNIDine HCL 0.1 MG TABLET PO ×2 (08:48→20:13)
[2023-11-26] MEDS: hydrALAZINE HCl 10 MG TABLET PO ×3 (08:48→20:12)
[2023-11-26] MEDS: amLODIPine Besylate 10 MG TABLET PO (08:48)
[2023-11-26] MEDS: Omeprazole 20 MG CAPSULE.DR PO ×2 (08:48→16:55)
[2023-11-26 10:00] VITALS: BP 144/93; RESP 18
[2023-11-26 14:26] VITALS: BP 137/94; PULSE 90; RESP 18
[2023-11-26] MEDS: QUEtiapine Fumarate 50 MG TABLET PO (14:27)
--- NOTE | 2023-11-26 15:28 | P.PNPSI_ITS ---
Subjective Subjective Date of Service: 11/26/23 Reason For Visit: crisis Interim History: cooperative, not belligerent or irritable. initiates conversation saying my depression and suicidality are 10 out of 10. reports having missed her meds last night because she slept from [id number]. states she will take her meds tonight and sleep very well, she believes. per staff, anx/dep 06/25. some groups. med-compliant. slept well. wearing mask on unit. Mental Status Exam Mental Status Exam Narrative: adequately dressed and groomed. PMA of frequent gestures. superficially cooperative with interview. speech pressured. thoughts tangential. affect slightly less intense, mod-labile. mood euphoric. +SI. No HI/AVH expressed. Diagnostics Vital Signs (24Hr): Vital Signs - 24 hr 11/25/23 21:00 11/26/23 08:21 11/26/23 10:00 Temperature 97.5 F 97.6 F Pulse Rate 107 H 88 Respiratory Rate 18 16 18 Blood Pressure 133/87 179/106 H 144/93 H Pulse Oximetry 95 98 Oxygen Delivery Method Room Air Room Air 11/26/23 14:26 Temperature Pulse Rate 90 Respiratory Rate 18 Blood Pressure 137/94 H Pulse Oximetry Oxygen Delivery Method Labs 11/20/23 08:03 Labs: Laboratory Results - last 48 hr 11/25/23 10:15 Influenza Type A (PCR) NEGATIVE Influenza Type B (PCR) NEGATIVE RSV RNA Qual (PCR) NEGATIVE SARS-CoV-2 RNA (RT-PCR) POSITIVE A Medications Medications Current Medications Acetaminophen (Acetaminophen 325 Mg Tablet) 650 mg PO Q6H PRN PRN Reason: Pain, Mild (Pain Scale 1-3) Al Hydroxide/Mg Hydroxide (Magnesium Hydrox/Alum Hydrox 30 Ml Oral.Susp) 30 ml PO Q6H PRN PRN Reason: Heartburn/Nausea Amlodipine Besylate (Amlodipine Besylate 10 Mg Tablet) 10 mg PO DAILY [facility]; Protocol Last Admin: 11/26/23 08:48 Dose: 10 mg Benzocaine (Throat Lozenge, Medicated Lozenge) 1 lozenge MUCOUS MEM Q1H PRN PRN Reason: Sore Throat Last Admin: 11/26/23 08:48 Dose: 1 lozenge Calcium Carbonate (Calcium Carbonate 750 Mg Tab.Chew) 750 mg PO Q4H PRN PRN Reason: Indigestion Clonidine HCl (Clonidine Hcl 0.1 Mg Tablet) 0.1 mg PO BID [facility]; Protocol Last Admin: 11/26/23 08:48 Dose: 0.1 mg Hydralazine HCl (Hydralazine Hcl 10 Mg Tablet) 10 mg PO TID [facility]; Protocol Last Admin: 11/26/23 14:27 Dose: 10 mg Loperamide HCl (Loperamide Hcl 2 Mg Capsule) 2 mg PO Q6H PRN PRN Reason: loose stool Magnesium Hydroxide (Milk Of Magnesia 30 Ml Oral.Susp) 30 ml PO DAILY PRN PRN Reason: Constipation Metoprolol Succinate (Metoprolol Succinate Er 50 Mg Tab.Er.24h) 50 mg PO DAILY [facility]; Protocol Last Admin: 11/26/23 08:48 Dose: 50 mg Omeprazole (Omeprazole 20 Mg Capsule.Dr) 20 mg PO BID@0630,1630 [facility] Last Admin: 11/26/23 08:48 Dose: 20 mg Quetiapine Fumarate (Quetiapine Fumarate 300 Mg Tablet) 300 mg PO BEDTIME [facility] Last Admin: 11/25/23 23:07 Dose: Not Given Quetiapine Fumarate (Quetiapine Fumarate 100 Mg Tablet) 100 mg PO BEDTIME PRN PRN Reason: insomnia Quetiapine Fumarate (Quetiapine Fumarate 50 Mg Tablet) 50 mg PO Q4H PRN PRN Reason: agitation/anxiety Last Admin: 11/23/23 12:24 Dose: 50 mg Quetiapine Fumarate (Quetiapine Fumarate 50 Mg Tablet) 50 mg PO DAILY@1330 [facility] Last Admin: 11/26/23 14:27 Dose: 50 mg Allergies Allergies Allergy/AdvReac Type Severity Reaction Status Date / Time [place] And Derivatives Allergy Severe Hives Verified 11/15/23 14:16 strawberry Allergy Severe Hives Verified 11/15/23 14:16 Assessment & Plan Assessment & Plan (1) Bipolar 1 disorder: Status: Acute Code(s): F31.9 - Bipolar disorder, unspecified (2) Hypertension: Status: Inactive Code(s): I10 - Essential (primary) hypertension Plan increase seroquel from 100 QHS to 200 QHS. pt declining to consider evidence-based mood stabilizers. continue to encourage appropriate medication at appropriate doses. anti-HTN as indicated. 11/20 continue tx. 11/21: increase HS seroquel to 300 mg, with 100 mg PRN. add seroquel 50 PRN Q4H. otherwise continue current mgmt. remains quite manic. 11/23/2023: No changes to current regimen as Seroquel just increased yesterday 11/23: declined seroquel change/increase 11/24: declined HS seroquel increase, agreed to add a dose of 50 mg at 1330. continues manic, somewhat attenuated from earlier. 11/25: no change in presentation from yesterday. missed meds last night. expressing 06/25 dep/SI. continue current mgmt. Reason for continued inpatient stay Substantial Risk for: harm to others, inability to function and rapid decompensation Time Spent With Patient Time: Total time managing care of this patient today __25__ minutes.
[2023-11-26] MEDS: QUEtiapine Fumarate 300 MG TABLET PO (20:12)
[2023-11-26 20:23] VITALS: BP 138/92; PULSE 99; RESP 18; TEMP 36.7; O2SAT 97
[2023-11-27 06:00] VITALS: BP 130/81; PULSE 113; RESP 18; TEMP 36.6; O2SAT 98
[2023-11-27] MEDS: cloNIDine HCL 0.1 MG TABLET PO ×2 (10:40→20:56)
[2023-11-27] MEDS: hydrALAZINE HCl 10 MG TABLET PO ×3 (10:40→20:57)
[2023-11-27] MEDS: Omeprazole 20 MG CAPSULE.DR PO ×2 (10:41→17:10)
[2023-11-27] MEDS: Throat Lozenge, Medicated LOZENGE 1 LOZENGE MUCOUS MEM ×4 (10:41→20:57)
[2023-11-27] MEDS: amLODIPine Besylate 10 MG TABLET PO (10:41)
[2023-11-27] MEDS: Metoprolol Succinate ER 50 MG TAB.ER.24H PO (10:41)
[2023-11-27 14:30] VITALS: BP 122/81; PULSE 86; RESP 18
[2023-11-27] MEDS: QUEtiapine Fumarate 50 MG TABLET PO (14:36)
--- NOTE | 2023-11-27 15:14 | HO.PSYCHPN ---
Subjective Subjective Date of Service: 11/27/23 Reason For Visit: crisis Interim History: irritable, dismissive. states she wishes not to talk to MD and puts her headphones on. per staff, depressed. pleasant, brighter yesterday. +anx/dep eves. Mental Status Exam Mental Status Exam Narrative: adequately dressed and groomed. PMA of frequent gestures. essentially uncooperative with interview. speech rapid but not pressured. thoughts more organized and linear. affect slightly less intense, mod-labile. mood depressed. No SI/HI/AVH expressed. Diagnostics Vital Signs (24Hr): Vital Signs - 24 hr 11/26/23 20:23 11/27/23 06:00 Temperature 98.0 F 97.8 F Pulse Rate 99 113 H Respiratory Rate 18 18 Blood Pressure 138/92 H 130/81 Pulse Oximetry 97 98 Oxygen Delivery Method Room Air Room Air Labs 11/20/23 08:03 Medications Medications Current Medications Acetaminophen (Acetaminophen 325 Mg Tablet) 650 mg PO Q6H PRN PRN Reason: Pain, Mild (Pain Scale 1-3) Al Hydroxide/Mg Hydroxide (Magnesium Hydrox/Alum Hydrox 30 Ml Oral.Susp) 30 ml PO Q6H PRN PRN Reason: Heartburn/Nausea Amlodipine Besylate (Amlodipine Besylate 10 Mg Tablet) 10 mg PO DAILY [facility]; Protocol Last Admin: 11/27/23 10:41 Dose: 10 mg Benzocaine (Throat Lozenge, Medicated Lozenge) 1 lozenge MUCOUS MEM Q1H PRN PRN Reason: Sore Throat Last Admin: 11/27/23 14:36 Dose: 1 lozenge Calcium Carbonate (Calcium Carbonate 750 Mg Tab.Chew) 750 mg PO Q4H PRN PRN Reason: Indigestion Clonidine HCl (Clonidine Hcl 0.1 Mg Tablet) 0.1 mg PO BID [facility]; Protocol Last Admin: 11/27/23 10:40 Dose: 0.1 mg Hydralazine HCl (Hydralazine Hcl 10 Mg Tablet) 10 mg PO TID [facility]; Protocol Last Admin: 11/27/23 14:36 Dose: 10 mg Loperamide HCl (Loperamide Hcl 2 Mg Capsule) 2 mg PO Q6H PRN PRN Reason: loose stool Magnesium Hydroxide (Milk Of Magnesia 30 Ml Oral.Susp) 30 ml PO DAILY PRN PRN Reason: Constipation Metoprolol Succinate (Metoprolol Succinate Er 50 Mg Tab.Er.24h) 50 mg PO DAILY [facility]; Protocol Last Admin: 11/27/23 10:41 Dose: 50 mg Omeprazole (Omeprazole 20 Mg Capsule.Dr) 20 mg PO BID@0630,1630 [facility] Last Admin: 11/27/23 10:41 Dose: 20 mg Quetiapine Fumarate (Quetiapine Fumarate 300 Mg Tablet) 300 mg PO BEDTIME [facility] Last Admin: 11/26/23 20:12 Dose: 300 mg Quetiapine Fumarate (Quetiapine Fumarate 100 Mg Tablet) 100 mg PO BEDTIME PRN PRN Reason: insomnia Quetiapine Fumarate (Quetiapine Fumarate 50 Mg Tablet) 50 mg PO Q4H PRN PRN Reason: agitation/anxiety Last Admin: 11/23/23 12:24 Dose: 50 mg Quetiapine Fumarate (Quetiapine Fumarate 50 Mg Tablet) 50 mg PO DAILY@1330 [facility] Last Admin: 11/27/23 14:36 Dose: 50 mg Allergies Allergies Allergy/AdvReac Type Severity Reaction Status Date / Time [place] And Derivatives Allergy Severe Hives Verified 11/15/23 14:16 strawberry Allergy Severe Hives Verified 11/15/23 14:16 Assessment & Plan Assessment & Plan (1) Bipolar 1 disorder: Status: Acute Code(s): F31.9 - Bipolar disorder, unspecified (2) Hypertension: Status: Inactive Code(s): I10 - Essential (primary) hypertension Plan increase seroquel from 100 QHS to 200 QHS. pt declining to consider evidence-based mood stabilizers. continue to encourage appropriate medication at appropriate doses. anti-HTN as indicated. 11/20 continue tx. 11/21: increase HS seroquel to 300 mg, with 100 mg PRN. add seroquel 50 PRN Q4H. otherwise continue current mgmt. remains quite manic. 11/23/2023: No changes to current regimen as Seroquel just increased yesterday 11/23: declined seroquel change/increase 11/24: declined HS seroquel increase, agreed to add a dose of 50 mg at 1330. continues manic, somewhat attenuated from earlier. 11/25: no change in presentation from yesterday. missed meds last night. expressing 06/25 dep/SI. continue current mgmt. 11/26: had meds last night. irritable, dismissive. states she is depressed. in restraint room. COVID POS. Reason for continued inpatient stay Substantial Risk for: harm to self and inability to function Time Spent With Patient Time: Total time managing care of this patient today ____ minutes.
[2023-11-27 20:50] VITALS: BP 143/85; PULSE 92; RESP 18; TEMP 36.3; O2SAT 98
[2023-11-27] MEDS: QUEtiapine Fumarate 300 MG TABLET PO (20:56)
[2023-11-28 06:00] VITALS: BP 144/93; PULSE 120; RESP 18; TEMP 36.6; O2SAT 98
[2023-11-28] MEDS: Throat Lozenge, Medicated LOZENGE 1 LOZENGE MUCOUS MEM ×3 (10:40→20:25)
[2023-11-28] MEDS: Omeprazole 20 MG CAPSULE.DR PO (10:40)
[2023-11-28] MEDS: Metoprolol Succinate ER 50 MG TAB.ER.24H PO (10:40)
[2023-11-28] MEDS: amLODIPine Besylate 10 MG TABLET PO (10:40)
[2023-11-28] MEDS: cloNIDine HCL 0.1 MG TABLET PO ×2 (10:40→20:25)
[2023-11-28] MEDS: hydrALAZINE HCl 10 MG TABLET PO ×3 (10:40→20:26)
[2023-11-28] MEDS: QUEtiapine Fumarate 50 MG TABLET PO (14:18)
[2023-11-28 14:22] VITALS: BP 130/79; PULSE 94; RESP 18
--- NOTE | 2023-11-28 14:55 | HO.PSYCHPN ---
Subjective Subjective Date of Service: 11/28/23 Reason For Visit: crisis Interim History: pt seen with ANNE Gage. pleasant, cooperative. states she is in a good mood. denies SI. asking to shave her head. slept well, from 1999 through 050. per staff, dep 10. affect variable, labile. not attending groups. taking meds. COVID POS. showered. Mental Status Exam Mental Status Exam Narrative: adequately dressed and groomed. no PMA/PMR. cooperative with interview. speech rapid but not pressured, nml amount. thoughts organized and linear. affect slightly less intense, non-labile. mood happy. No SI. no HI/AVH expressed. Diagnostics Vital Signs (24Hr): Vital Signs - 24 hr 11/27/23 20:50 11/28/23 06:00 11/28/23 14:22 Temperature 97.4 F 97.8 F Pulse Rate 92 120 H 94 Respiratory Rate 18 18 18 Blood Pressure 143/85 H 144/93 H 130/79 Pulse Oximetry 98 98 Oxygen Delivery Method Room Air Room Air Labs 11/20/23 08:03 Medications Medications Current Medications Acetaminophen (Acetaminophen 325 Mg Tablet) 650 mg PO Q6H PRN PRN Reason: Pain, Mild (Pain Scale 1-3) Al Hydroxide/Mg Hydroxide (Magnesium Hydrox/Alum Hydrox 30 Ml Oral.Susp) 30 ml PO Q6H PRN PRN Reason: Heartburn/Nausea Amlodipine Besylate (Amlodipine Besylate 10 Mg Tablet) 10 mg PO DAILY [facility]; Protocol Last Admin: 11/28/23 10:40 Dose: 10 mg Benzocaine (Throat Lozenge, Medicated Lozenge) 1 lozenge MUCOUS MEM Q1H PRN PRN Reason: Sore Throat Last Admin: 11/28/23 14:17 Dose: 1 lozenge Calcium Carbonate (Calcium Carbonate 750 Mg Tab.Chew) 750 mg PO Q4H PRN PRN Reason: Indigestion Clonidine HCl (Clonidine Hcl 0.1 Mg Tablet) 0.1 mg PO BID [facility]; Protocol Last Admin: 11/28/23 10:40 Dose: 0.1 mg Hydralazine HCl (Hydralazine Hcl 10 Mg Tablet) 10 mg PO TID [facility]; Protocol Last Admin: 11/28/23 14:17 Dose: 10 mg Loperamide HCl (Loperamide Hcl 2 Mg Capsule) 2 mg PO Q6H PRN PRN Reason: loose stool Magnesium Hydroxide (Milk Of Magnesia 30 Ml Oral.Susp) 30 ml PO DAILY PRN PRN Reason: Constipation Metoprolol Succinate (Metoprolol Succinate Er 50 Mg Tab.Er.24h) 50 mg PO DAILY [facility]; Protocol Last Admin: 11/28/23 10:40 Dose: 50 mg Omeprazole (Omeprazole 20 Mg Capsule.Dr) 20 mg PO BID@0630,1630 [facility] Last Admin: 11/28/23 10:40 Dose: 20 mg Quetiapine Fumarate (Quetiapine Fumarate 300 Mg Tablet) 300 mg PO BEDTIME [facility] Last Admin: 11/27/23 20:56 Dose: 300 mg Quetiapine Fumarate (Quetiapine Fumarate 100 Mg Tablet) 100 mg PO BEDTIME PRN PRN Reason: insomnia Quetiapine Fumarate (Quetiapine Fumarate 50 Mg Tablet) 50 mg PO Q4H PRN PRN Reason: agitation/anxiety Last Admin: 11/23/23 12:24 Dose: 50 mg Quetiapine Fumarate (Quetiapine Fumarate 50 Mg Tablet) 50 mg PO DAILY@1330 [facility] Last Admin: 11/28/23 14:18 Dose: 50 mg Allergies Allergies Allergy/AdvReac Type Severity Reaction Status Date / Time [place] And Derivatives Allergy Severe Hives Verified 11/15/23 14:16 strawberry Allergy Severe Hives Verified 11/15/23 14:16 Assessment & Plan Assessment & Plan (1) Bipolar 1 disorder: Status: Acute Code(s): F31.9 - Bipolar disorder, unspecified (2) Hypertension: Status: Inactive Code(s): I10 - Essential (primary) hypertension Plan increase seroquel from 100 QHS to 200 QHS. pt declining to consider evidence-based mood stabilizers. continue to encourage appropriate medication at appropriate doses. anti-HTN as indicated. 11/20 continue tx. 11/21: increase HS seroquel to 300 mg, with 100 mg PRN. add seroquel 50 PRN Q4H. otherwise continue current mgmt. remains quite manic. 11/23/2023: No changes to current regimen as Seroquel just increased yesterday 11/23: declined seroquel change/increase 11/24: declined HS seroquel increase, agreed to add a dose of 50 mg at 1330. continues manic, somewhat attenuated from earlier. 11/25: no change in presentation from yesterday. missed meds last night. expressing 06/25 dep/SI. continue current mgmt. 11/26: had meds last night. irritable, dismissive. states she is depressed. in restraint room. COVID POS. 11/27: mood happy today, denies SI. continue current mgmt. planning for discharge next saturday. Reason for continued inpatient stay Substantial Risk for: harm to self, inability to function and rapid decompensation Time Spent With Patient Time: Total time managing care of this patient today __25__ minutes.
[2023-11-28 20:05] VITALS: BP 131/85; PULSE 83; RESP 18; TEMP 37; O2SAT 99
[2023-11-28] MEDS: QUEtiapine Fumarate 300 MG TABLET PO (20:26)
[2023-11-29 07:50] VITALS: BP 141/88; PULSE 118; RESP 18; TEMP 36.2; O2SAT 97
[2023-11-29] MEDS: amLODIPine Besylate 10 MG TABLET PO (09:26)
[2023-11-29] MEDS: cloNIDine HCL 0.1 MG TABLET PO ×2 (09:26→20:29)
[2023-11-29] MEDS: Acetaminophen 325 MG TABLET 650 MG PO (09:26)
[2023-11-29] MEDS: hydrALAZINE HCl 10 MG TABLET PO ×3 (09:27→20:29)
[2023-11-29] MEDS: Metoprolol Succinate ER 50 MG TAB.ER.24H PO (09:27)
[2023-11-29] MEDS: Throat Lozenge, Medicated LOZENGE 1 LOZENGE MUCOUS MEM ×3 (10:58→20:33)
--- NOTE | 2023-11-29 12:05 | P.PNPSI_ITS ---
Subjective Subjective Date of Service: 11/29/23 Reason For Visit: crisis Interim History: spontaneously pressured and tangential, but able to be linear for periods in answering direct questions. looking forward to coming out of isolation on saturday, asking for COVID test to be done saturday morning. states she is depressed, denies SI. per staff, showered, labile. shaved head yesterday. depressed. no behavioral issues. denies COVID Sx. slept 8 hours. Mental Status Exam Mental Status Exam Narrative: adequately dressed and groomed. no PMA/PMR. cooperative with interview. speech rapid, incr amount. thoughts organized and linear for periods, otherwise tangential. affect slightly less intense, non-labile. mood depressed. No SI. no HI/AVH expressed. Diagnostics Vital Signs (24Hr): Vital Signs - 24 hr 11/28/23 14:22 11/28/23 20:05 11/29/23 07:50 Temperature 98.6 F 97.2 F Pulse Rate 94 83 118 H Respiratory Rate 18 18 18 Blood Pressure 130/79 131/85 141/88 H Pulse Oximetry 99 97 Oxygen Delivery Method Room Air Room Air Labs 11/20/23 08:03 Medications Medications Current Medications Acetaminophen (Acetaminophen 325 Mg Tablet) 650 mg PO Q6H PRN PRN Reason: Pain, Mild (Pain Scale 1-3) Last Admin: 11/29/23 09:26 Dose: 650 mg Al Hydroxide/Mg Hydroxide (Magnesium Hydrox/Alum Hydrox 30 Ml Oral.Susp) 30 ml PO Q6H PRN PRN Reason: Heartburn/Nausea Amlodipine Besylate (Amlodipine Besylate 10 Mg Tablet) 10 mg PO DAILY [facility]; Protocol Last Admin: 11/29/23 09:26 Dose: 10 mg Benzocaine (Throat Lozenge, Medicated Lozenge) 1 lozenge MUCOUS MEM Q1H PRN PRN Reason: Sore Throat Last Admin: 11/29/23 10:58 Dose: 1 lozenge Calcium Carbonate (Calcium Carbonate 750 Mg Tab.Chew) 750 mg PO Q4H PRN PRN Reason: Indigestion Clonidine HCl (Clonidine Hcl 0.1 Mg Tablet) 0.1 mg PO BID [facility]; Protocol Last Admin: 11/29/23 09:26 Dose: 0.1 mg Hydralazine HCl (Hydralazine Hcl 10 Mg Tablet) 10 mg PO TID [facility]; Protocol Last Admin: 11/29/23 09:27 Dose: 10 mg Loperamide HCl (Loperamide Hcl 2 Mg Capsule) 2 mg PO Q6H PRN PRN Reason: loose stool Magnesium Hydroxide (Milk Of Magnesia 30 Ml Oral.Susp) 30 ml PO DAILY PRN PRN Reason: Constipation Metoprolol Succinate (Metoprolol Succinate Er 50 Mg Tab.Er.24h) 50 mg PO DAILY [facility]; Protocol Last Admin: 11/29/23 09:27 Dose: 50 mg Omeprazole (Omeprazole 20 Mg Capsule.Dr) 20 mg PO BID@0630,1630 [facility] Last Admin: 11/29/23 09:29 Dose: Not Given Quetiapine Fumarate (Quetiapine Fumarate 300 Mg Tablet) 300 mg PO BEDTIME [facility] Last Admin: 11/28/23 20:26 Dose: 300 mg Quetiapine Fumarate (Quetiapine Fumarate 100 Mg Tablet) 100 mg PO BEDTIME PRN PRN Reason: insomnia Quetiapine Fumarate (Quetiapine Fumarate 50 Mg Tablet) 50 mg PO Q4H PRN PRN Reason: agitation/anxiety Last Admin: 11/23/23 12:24 Dose: 50 mg Quetiapine Fumarate (Quetiapine Fumarate 50 Mg Tablet) 50 mg PO DAILY@1330 [facility] Last Admin: 11/28/23 14:18 Dose: 50 mg Allergies Allergies Allergy/AdvReac Type Severity Reaction Status Date / Time [place] And Derivatives Allergy Severe Hives Verified 11/15/23 14:16 strawberry Allergy Severe Hives Verified 11/15/23 14:16 Assessment & Plan Assessment & Plan (1) Bipolar 1 disorder: Status: Acute Code(s): F31.9 - Bipolar disorder, unspecified (2) Hypertension: Status: Inactive Code(s): I10 - Essential (primary) hypertension Plan increase seroquel from 100 QHS to 200 QHS. pt declining to consider evidence-based mood stabilizers. continue to encourage appropriate medication at appropriate doses. anti-HTN as indicated. 11/20 continue tx. 11/21: increase HS seroquel to 300 mg, with 100 mg PRN. add seroquel 50 PRN Q4H. otherwise continue current mgmt. remains quite manic. 11/23/2023: No changes to current regimen as Seroquel just increased yesterday 11/23: declined seroquel change/increase 11/24: declined HS seroquel increase, agreed to add a dose of 50 mg at 1330. continues manic, somewhat attenuated from earlier. 11/25: no change in presentation from yesterday. missed meds last night. expressing 06/25 dep/SI. continue current mgmt. 11/26: had meds last night. irritable, dismissive. states she is depressed. in restraint room. COVID POS. 11/27: mood happy today, denies SI. continue current mgmt. 11/28: mood depressed, denies SI. continue current mgmt. can come out of isolation saturday. Reason for continued inpatient stay Substantial Risk for: harm to self, harm to others, inability to function and rapid decompensation Time Spent With Patient Time: Total time managing care of this patient today __25__ minutes.
[2023-11-29] MEDS: QUEtiapine Fumarate 50 MG TABLET PO (14:20)
[2023-11-29 20:20] VITALS: BP 120/83; PULSE 93; RESP 16; TEMP 36.7; O2SAT 97
[2023-11-29] MEDS: QUEtiapine Fumarate 300 MG TABLET PO (20:29)
[2023-11-30] MEDS: QUEtiapine Fumarate 100 MG TABLET PO ×2 (01:26→21:36)
[2023-11-30] MEDS: Throat Lozenge, Medicated LOZENGE 1 LOZENGE MUCOUS MEM ×6 (04:26→21:36)
[2023-11-30 08:45] VITALS: BP 121/86; PULSE 104; RESP 16; TEMP 36.3; O2SAT 97
[2023-11-30] MEDS: cloNIDine HCL 0.1 MG TABLET PO ×2 (08:50→21:50)
[2023-11-30] MEDS: Metoprolol Succinate ER 50 MG TAB.ER.24H PO (08:51)
[2023-11-30] MEDS: amLODIPine Besylate 10 MG TABLET PO (08:51)
[2023-11-30] MEDS: hydrALAZINE HCl 10 MG TABLET PO ×3 (08:51→21:37)
--- NOTE | 2023-11-30 11:49 | P.PNPSI_ITS ---
Subjective Subjective Date of Service: 11/30/23 Reason For Visit: crisis Subjective Notes: Conditional Voluntary Interim History: Pt slept through the night. She expressed frustration because she should be taking, according to the pt, cepacol every hour. She reports feeling depressed, but states I am not suicidal. She denies VH/AH. Get agitated complaining and about mistreatment on the unit, but then calms down and apologizes to this movie writer. Review of Systems Review of Systems Unremarkable Mental Status Exam Mental Status Exam Narrative: adequately dressed and groomed. no PMA/PMR. cooperative with interview. speech rapid, incr amount. thoughts organized and linear for periods, otherwise tangential. affect slightly less intense, non-labile. mood depressed. No SI. no HI/AVH expressed. Diagnostics Vital Signs (24Hr): Vital Signs - 24 hr 11/29/23 20:20 11/30/23 08:45 Temperature 98.1 F 97.3 F Pulse Rate 93 104 H Respiratory Rate 16 16 Blood Pressure 120/83 121/86 Pulse Oximetry 97 97 Oxygen Delivery Method Room Air Room Air Labs 11/30/23 12:12 Medications Medications Current Medications Acetaminophen (Acetaminophen 325 Mg Tablet) 650 mg PO Q6H PRN PRN Reason: Pain, Mild (Pain Scale 1-3) Last Admin: 11/29/23 09:26 Dose: 650 mg Al Hydroxide/Mg Hydroxide (Magnesium Hydrox/Alum Hydrox 30 Ml Oral.Susp) 30 ml PO Q6H PRN PRN Reason: Heartburn/Nausea Amlodipine Besylate (Amlodipine Besylate 10 Mg Tablet) 10 mg PO DAILY [facility]; Protocol Last Admin: 11/30/23 08:51 Dose: 10 mg Benzocaine (Throat Lozenge, Medicated Lozenge) 1 lozenge MUCOUS MEM Q1H PRN PRN Reason: Sore Throat Last Admin: 11/30/23 08:54 Dose: 1 lozenge Calcium Carbonate (Calcium Carbonate 750 Mg Tab.Chew) 750 mg PO Q4H PRN PRN Reason: Indigestion Clonidine HCl (Clonidine Hcl 0.1 Mg Tablet) 0.1 mg PO BID [facility]; Protocol Last Admin: 11/30/23 08:50 Dose: 0.1 mg Hydralazine HCl (Hydralazine Hcl 10 Mg Tablet) 10 mg PO TID [facility]; Protocol Last Admin: 11/30/23 08:51 Dose: 10 mg Loperamide HCl (Loperamide Hcl 2 Mg Capsule) 2 mg PO Q6H PRN PRN Reason: loose stool Magnesium Hydroxide (Milk Of Magnesia 30 Ml Oral.Susp) 30 ml PO DAILY PRN PRN Reason: Constipation Metoprolol Succinate (Metoprolol Succinate Er 50 Mg Tab.Er.24h) 50 mg PO DAILY [facility]; Protocol Last Admin: 11/30/23 08:51 Dose: 50 mg Omeprazole (Omeprazole 20 Mg Capsule.Dr) 20 mg PO BID@0630,1630 [facility] Last Admin: 11/30/23 07:49 Dose: Not Given Quetiapine Fumarate (Quetiapine Fumarate 300 Mg Tablet) 300 mg PO BEDTIME [facility] Last Admin: 11/29/23 20:29 Dose: 300 mg Quetiapine Fumarate (Quetiapine Fumarate 100 Mg Tablet) 100 mg PO BEDTIME PRN PRN Reason: insomnia Last Admin: 11/30/23 01:26 Dose: 100 mg Quetiapine Fumarate (Quetiapine Fumarate 50 Mg Tablet) 50 mg PO Q4H PRN PRN Reason: agitation/anxiety Last Admin: 11/23/23 12:24 Dose: 50 mg Quetiapine Fumarate (Quetiapine Fumarate 50 Mg Tablet) 50 mg PO DAILY@1330 [facility] Last Admin: 11/29/23 14:20 Dose: 50 mg Allergies Allergies Allergy/AdvReac Type Severity Reaction Status Date / Time [place] And Derivatives Allergy Severe Hives Verified 11/15/23 14:16 strawberry Allergy Severe Hives Verified 11/15/23 14:16 Assessment & Plan Assessment & Plan (1) Bipolar 1 disorder: Status: Acute Code(s): F31.9 - Bipolar disorder, unspecified (2) Hypertension: Status: Inactive Code(s): I10 - Essential (primary) hypertension Plan increase seroquel from 100 QHS to 200 QHS. pt declining to consider evidence-based mood stabilizers. continue to encourage appropriate medication at appropriate doses. anti-HTN as indicated. 11/20 continue tx. 11/21: increase HS seroquel to 300 mg, with 100 mg PRN. add seroquel 50 PRN Q4H. otherwise continue current mgmt. remains quite manic. 11/23/2023: No changes to current regimen as Seroquel just increased yesterday 11/23: declined seroquel change/increase 11/24: declined HS seroquel increase, agreed to add a dose of 50 mg at 1330. continues manic, somewhat attenuated from earlier. 11/25: no change in presentation from yesterday. missed meds last night. expressing 06/25 dep/SI. continue current mgmt. 11/26: had meds last night. irritable, dismissive. states she is depressed. in restraint room. COVID POS. 11/27: mood happy today, denies SI. continue current mgmt. 11/28: mood depressed, denies SI. continue current mgmt. can come out of isolation saturday. 11/29 continue tx. Reason for continued inpatient stay Substantial Risk for: inability to function Time Spent With Patient Time: Total time managing care of this patient today ____ minutes.
[2023-11-30 12:39] LABS: Alanine Aminotransferase 56 U/L (0-31); Albumin Level 4.2 g/dL (3.5-5.0); Alkaline Phosphatase 85 U/L (39-117); Anion Gap 12 (12-20); Aspartate Amino Transferase 22 U/L (5-31); Bilirubin Total 0.8 mg/dL (0.0-1.0); Blood Urea Nitrogen 22 mg/dL (9-16); Calcium 10.4 mg/dL (8.4-10.2); Carbon Dioxide 20 mmol/L (22-29); Chloride 112 mmol/L (96-108); Estimated Glomerular Filt Rate 46; Glucose Random 108 mg/dL (60-115); Potassium 3.8 mmol/L (3.3-5.1); Sodium 140 mmol/L (135-145); Total Protein 7.2 g/dL (6.5-8.0)
[2023-11-30] MEDS: QUEtiapine Fumarate 50 MG TABLET PO ×2 (13:09→21:36)
[2023-11-30 14:17] LABS: COVID-19 Test Positive (Negative); IDNOW Serial# 152EDE1D
[2023-11-30 21:30] VITALS: BP 145/96; PULSE 92; RESP 18; TEMP 37.5; O2SAT 95
[2023-11-30] MEDS: QUEtiapine Fumarate 300 MG TABLET PO (21:36)
[2023-11-30] MEDS: Acetaminophen 325 MG TABLET 650 MG PO (21:52)
[2023-11-30 22:52] VITALS: BP 120/67; PULSE 126; RESP 18; TEMP 36.3; O2SAT 95
[2023-12-01 08:40] VITALS: BP 117/89; PULSE 95; RESP 18; TEMP 36.3; O2SAT 97
[2023-12-01] MEDS: hydrALAZINE HCl 10 MG TABLET PO ×3 (08:49→20:43)
[2023-12-01] MEDS: Metoprolol Succinate ER 50 MG TAB.ER.24H PO (08:49)
[2023-12-01] MEDS: amLODIPine Besylate 10 MG TABLET PO (08:49)
[2023-12-01] MEDS: cloNIDine HCL 0.1 MG TABLET PO ×2 (08:49→20:43)
[2023-12-01] MEDS: Throat Lozenge, Medicated LOZENGE 1 LOZENGE MUCOUS MEM ×5 (08:50→17:34)
[2023-12-01 09:11] LABS: COVID-19 Test Positive (Negative); IDNOW Serial# 08D9AD1C
[2023-12-01] MEDS: QUEtiapine Fumarate 50 MG TABLET PO (13:29)
[2023-12-01 15:30] VITALS: BP 140/96; PULSE 85
[2023-12-01 18:00] VITALS: BP 148/87; PULSE 88; RESP 18; TEMP 36.7; O2SAT 98
--- NOTE | 2023-12-01 20:08 | P.PNPSI_ITS ---
Subjective Subjective Date of Service: 12/01/23 Reason For Visit: crisis Subjective Notes: Conditional Voluntary Interim History: Pt slept through the night. Again, she expresses about not having prn meds quickly as she asks for them, being in isolation due to covid. She reports feeling depressed, but states I am not suicidal. She denies VH/AH. Gets agitated complaining and about mistreatment on the unit, but then calms down and apologizes to this typewriter assembler. Review of Systems Review of Systems Unremarkable Mental Status Exam Mental Status Exam Narrative: adequately dressed and groomed. no PMA/PMR. cooperative with interview. speech rapid, incr amount. thoughts organized and linear for periods, otherwise tangential. affect slightly less intense, non-labile. mood depressed. No SI. no HI/AVH expressed. Diagnostics Vital Signs (24Hr): Vital Signs - 24 hr 11/30/23 21:30 11/30/23 22:52 12/01/23 08:40 Temperature 99.5 F 97.3 F 97.3 F Pulse Rate 92 126 H 95 Respiratory Rate 18 18 18 Blood Pressure 145/96 H 120/67 117/89 Pulse Oximetry 95 95 97 Oxygen Delivery Method Room Air Room Air Room Air 12/01/23 15:30 Temperature Pulse Rate 85 Respiratory Rate Blood Pressure 140/96 H Pulse Oximetry Oxygen Delivery Method Labs 11/30/23 12:12 Labs: Laboratory Results - last 48 hr 11/30/23 11/30/23 12/01/23 12:12 13:13 08:56 Sodium 140 Potassium 3.8 Chloride 112 H Carbon Dioxide 20 L Anion Gap 12 BUN 22 H Creatinine 1.20 Estim Creat Clear Calc TNP Estimated GFR 46 Random Glucose 108 Calcium 10.4 H Total Bilirubin 0.8 AST 22 ALT 56 H Alkaline Phosphatase 85 Total Protein 7.2 Albumin 4.2 COVID-19 ([facility]) Positive A Positive A COVID-19 Clin Com See Note See Note Medications Medications Current Medications Acetaminophen (Acetaminophen 325 Mg Tablet) 650 mg PO Q6H PRN PRN Reason: Pain, Mild (Pain Scale 1-3) Last Admin: 11/30/23 21:52 Dose: 650 mg Al Hydroxide/Mg Hydroxide (Magnesium Hydrox/Alum Hydrox 30 Ml Oral.Susp) 30 ml PO Q6H PRN PRN Reason: Heartburn/Nausea Amlodipine Besylate (Amlodipine Besylate 10 Mg Tablet) 10 mg PO DAILY [facility]; Protocol Last Admin: 12/01/23 08:49 Dose: 10 mg Benzocaine (Throat Lozenge, Medicated Lozenge) 1 lozenge MUCOUS MEM Q1H PRN PRN Reason: Sore Throat Last Admin: 12/01/23 17:34 Dose: 1 lozenge Calcium Carbonate (Calcium Carbonate 750 Mg Tab.Chew) 750 mg PO Q4H PRN PRN Reason: Indigestion Clonidine HCl (Clonidine Hcl 0.1 Mg Tablet) 0.1 mg PO BID [facility]; Protocol Last Admin: 12/01/23 08:49 Dose: 0.1 mg Hydralazine HCl (Hydralazine Hcl 10 Mg Tablet) 10 mg PO TID [facility]; Protocol Last Admin: 12/01/23 15:48 Dose: 10 mg Loperamide HCl (Loperamide Hcl 2 Mg Capsule) 2 mg PO Q6H PRN PRN Reason: loose stool Magnesium Hydroxide (Milk Of Magnesia 30 Ml Oral.Susp) 30 ml PO DAILY PRN PRN Reason: Constipation Metoprolol Succinate (Metoprolol Succinate Er 50 Mg Tab.Er.24h) 50 mg PO DAILY [facility]; Protocol Last Admin: 12/01/23 08:49 Dose: 50 mg Omeprazole (Omeprazole 20 Mg Capsule.Dr) 20 mg PO BID@0630,1630 [facility] Last Admin: 12/01/23 16:21 Dose: Not Given Quetiapine Fumarate (Quetiapine Fumarate 300 Mg Tablet) 300 mg PO BEDTIME [facility] Last Admin: 11/30/23 21:36 Dose: 300 mg Quetiapine Fumarate (Quetiapine Fumarate 100 Mg Tablet) 100 mg PO BEDTIME PRN PRN Reason: insomnia Last Admin: 11/30/23 21:36 Dose: 100 mg Quetiapine Fumarate (Quetiapine Fumarate 50 Mg Tablet) 50 mg PO Q4H PRN PRN Reason: agitation/anxiety Last Admin: 11/30/23 21:36 Dose: 50 mg Quetiapine Fumarate (Quetiapine Fumarate 50 Mg Tablet) 50 mg PO DAILY@1330 [facility] Last Admin: 12/01/23 13:29 Dose: 50 mg Allergies Allergies Allergy/AdvReac Type Severity Reaction Status Date / Time [place] And Derivatives Allergy Severe Hives Verified 11/15/23 14:16 strawberry Allergy Severe Hives Verified 11/15/23 14:16 Assessment & Plan Assessment & Plan (1) Bipolar 1 disorder: Status: Acute Code(s): F31.9 - Bipolar disorder, unspecified (2) Hypertension: Status: Inactive Code(s): I10 - Essential (primary) hypertension Plan increase seroquel from 100 QHS to 200 QHS. pt declining to consider evidence-based mood stabilizers. continue to encourage appropriate medication at appropriate doses. anti-HTN as indicated. 11/20 continue tx. 11/21: increase HS seroquel to 300 mg, with 100 mg PRN. add seroquel 50 PRN Q4H. otherwise continue current mgmt. remains quite manic. 11/23/2023: No changes to current regimen as Seroquel just increased yesterday 11/23: declined seroquel change/increase 11/24: declined HS seroquel increase, agreed to add a dose of 50 mg at 1330. continues manic, somewhat attenuated from earlier. 11/25: no change in presentation from yesterday. missed meds last night. expressing 06/25 dep/SI. continue current mgmt. 11/26: had meds last night. irritable, dismissive. states she is depressed. in restraint room. COVID POS. 11/27: mood happy today, denies SI. continue current mgmt. 11/28: mood depressed, denies SI. continue current mgmt. can come out of isolation saturday. 11/29 continue tx 11/30 continue tx. Reason for continued inpatient stay Substantial Risk for: inability to function Time Spent With Patient Time: Total time managing care of this patient today ____ minutes.
[2023-12-01] MEDS: QUEtiapine Fumarate 300 MG TABLET PO (20:43)
[2023-12-02] MEDS: amLODIPine Besylate 10 MG TABLET PO (08:20)
[2023-12-02] MEDS: cloNIDine HCL 0.1 MG TABLET PO ×2 (08:20→22:00)
[2023-12-02] MEDS: hydrALAZINE HCl 10 MG TABLET PO ×3 (08:20→22:00)
[2023-12-02] MEDS: Metoprolol Succinate ER 50 MG TAB.ER.24H PO (08:20)
[2023-12-02] MEDS: Throat Lozenge, Medicated LOZENGE 1 LOZENGE MUCOUS MEM ×4 (08:21→17:22)
[2023-12-02 08:25] VITALS: BP 132/96; PULSE 114; RESP 20; TEMP 36.6; O2SAT 98
[2023-12-02] MEDS: QUEtiapine Fumarate 50 MG TABLET PO (13:05)
[2023-12-02 19:30] VITALS: BP 107/64; PULSE 100; RESP 16; TEMP 36.5; O2SAT 97
[2023-12-02] MEDS: QUEtiapine Fumarate 300 MG TABLET PO (22:00)
[2023-12-03 07:45] VITALS: BP 148/107; PULSE 97; RESP 16; TEMP 36.3; O2SAT 97
[2023-12-03] MEDS: Throat Lozenge, Medicated LOZENGE 1 LOZENGE MUCOUS MEM (08:27)
[2023-12-03] MEDS: cloNIDine HCL 0.1 MG TABLET PO (08:27)
[2023-12-03] MEDS: hydrALAZINE HCl 10 MG TABLET PO (08:27)
[2023-12-03] MEDS: Metoprolol Succinate ER 50 MG TAB.ER.24H PO (08:27)
[2023-12-03] MEDS: amLODIPine Besylate 10 MG TABLET PO (08:27)
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
--- NOTE | 2023-12-03 12:05 | PC.NURSE ---
Patient easily engaged. Reports I am ready to get the fuck out of here . Patient reports mood is stable, denies highs or lows, denies racing thought or confusion, denies depression or anxiety. Denies SI/HI plan or intent at this time. Denies perceptual disturbances, denies A/V hallucinations, no overt psychosis. Continues grandiose. Planning to go shopping with sister in law when discharged, and Dilcia. Discharge paperwork reviewed with patient reports understanding. Patient to follow up at [facility] for aftercare. All medications reviewed with patient, reports understanding. Crisis numbers provided to patient. All belongings taken with patient.
== END 2023-12-03 11:49 | disposition home or self-care (01) | DRG 753 ==
PROVIDERS: Social Worker; Admitting Provider Registered Nurse; Visit Provider Psychiatry & Neurology Psychiatry
DX: F31.9 Bipolar disorder, unspecified (principal); R45.851 Suicidal ideations; I10 Essential (primary) hypertension; Z20.822 Contact with and (suspected) exposure to COVID-19; Z59.02 Unsheltered homelessness; Z79.899 Other long term (current) drug therapy
CPT/HCPCS: 0241U; 36415; 80053; 80061; 87635

== ENCOUNTER 2023-12-26 18:42 | Inpatient (IN) | payer MEDICAID, OTHER, SELFPAY ==
[2023-12-26 18:51] VITALS: BP 152/106; BP 165/108; PULSE 104; PULSE 88; RESP 18; TEMP 37.2; O2SAT 94; O2SAT 98; BMI 30.9
--- NOTE | 2023-12-26 19:12 | PC.NURSE ---
patient arrives via ems very irritable, swearing in changeover, calling from room for blankets and refreshments, stating room is cold, maintains safe bx at present
[2023-12-26 19:40] LABS: MANUAL DIFF FLAG NO
[2023-12-26 19:43] LABS: Appearance Urine Clear; Color Urine Yellow; Glucose Urine UA Negative (Negative); Leukocyte Esterase Urine Negative (Negative); Nitrite Urine Negative (Negative); PH 5.5 (5.0-9.0); Urine Blood Negative (Negative); Urine Ketones Negative (Negative); Urine Protein Negative (Neg-Trace)
[2023-12-26 19:45] LABS: Bacteria Urine None Seen (None Seen); Hyaline Casts Urine 0-2 /LPF (0-2); RBC Urine 0-2 /HPF (0-2); Squamous Epithelial Cell Urine 0-2 /HPF (0-2); WBC Urine 0-5 /HPF (0-5)
[2023-12-26 19:47] LABS: Basophils Percent Auto 0.5 % (0-2); Eosinophils Absolute Auto 0.1 X10*3/uL (0.0-0.4); Eosinophils Percent Auto 1.8 % (0-4); Hematocrit 39.7 % (37.0-47.0); Hemoglobin 13.8 g/dl (12.0-16.0); Imm Gran Abs Auto 0.01 X10*3/uL (0.00-0.03); Imm Gran Pct Auto 0.2 % (0.0-0.4); Lymphocytes Absolute Auto 0.7 X10*3/uL (1.2-4.9); Lymphocytes Percent Auto 11.8 % (20-40); Mean Corpuscular HGB Conc 34.8 g/dl (31.0-35.0); Mean Corpuscular Hemoglobin 30.6 pg (27.0-33.0); Mean Platelet Volume 9.9 fL (9.4-12.3); Monocytes Absolute Auto 0.5 X10*3/uL (0.1-1.2); Monocytes Percent Auto 8.7 % (2-11); Neutrophils Absolute Auto 4.3 x10*3/uL (2.0-8.3); Platelet Count 226 X10*3/uL (160-400); Red Blood Count 4.51 X10*6/uL (4.20-5.50); Red Cell Distribution Width 12.6 % (11.0-16.0); White Blood Count 5.5 X10*3/uL (4.8-10.8)
[2023-12-26 19:51] LABS: Amphetamine Screen Urine Not Detected (Not Detect); Barbiturates, Urine Not Detected (Not Detect); Benzodiazepines Screen Urine Not Detected (Not Detect); Cannabinoid Screen Urine Not Detected (Not Detect); Cocaine Screen Urine Not Detected (Not Detect); Fentanyl, urine POSITIVE (Not Detect); Opiate Screen Urine Not Detected (Not Detect); Phencyclidine Screen Urine Not Detected (Not Detect)
--- NOTE | 2023-12-26 19:56 | ED_ITS ---
HPI - General Adult General Chief complaint: Psychiatric Symptoms Stated complaint: SI/HI Time Seen by Provider: 12/26/23 19:05 Source: patient, RN notes reviewed and old records reviewed Mode of arrival: EMS Limitations: no limitations History of Present Illness HPI narrative: 58-year-old female with past medical history significant for chronic kidney disease, bipolar disorder, hypertension presents for evaluation of suicidal ideation. Patient reports that her nephew about 1 hour prior to arrival. She does not give any further details on that. Patient reports due to this an additional stressors in her life she ?can not take it anymore and I am just going to kill myself. Per nursing staff the patient has a plan to hang herself Patient was discharged from this facility a little over 1 month ago from an inpatient stay The patient voices concerns that she ?can not go into the home because I am a Hasidic Buddhism do and it is against my yarsani. Patient denies any somatic complaints at this time Related Data Previous Rx's ?Medication ?Instructions ?Recorded amlodipine 10 mg tablet 10 mg PO DAILY 30 days #30 tabs 12/03/23 clonidine HCl 0.1 mg tablet 0.1 mg PO BID 30 days #60 tabs 12/03/23 hydralazine 10 mg tablet 10 mg PO TID 30 days #90 tabs 12/03/23 metoprolol succinate 50 mg 50 mg PO DAILY 30 days #30 tabs 12/03/23 tablet,extended release 24 hr omeprazole 20 mg capsule,delayed 20 mg PO BID@0630,1630 30 days #60 12/03/23 release caps quetiapine 300 mg tablet 300 mg PO BEDTIME 30 days #30 tabs 12/03/23 quetiapine 50 mg tablet 50 mg PO DAILY@1330 30 days #30 12/03/23 tabs Allergies Allergy/AdvReac Type Severity Reaction Status Date / Time [place] [employer] Allergy Severe Hives Verified 12/26/23 18:53 strawberry Allergy Severe Hives Verified 12/26/23 18:53 Review of Systems 2 Constitutional: Constitutional: Denies body ache(s), Denies chills and Denies fever(s) Eyes: Eyes: Denies blurry vision ENT: Denies sore throat Cardiovascular: Cardiovascular: Denies chest pain and Denies dyspnea Respiratory: Respiratory: Denies cough and Denies dyspnea Gastrointestinal: Gastrointestinal: Denies abdominal pain, Denies nausea and Denies vomiting Genitourinary: Genitourinary: Denies dysuria Musculoskeletal: Musculoskeletal: Denies back pain Integumentary/Breasts: Skin/Breast: Denies rash Neurologic: Denies confusion Psychiatric: Psychiatric: Denies anxiety, Denies confusion, Reports depression and Reports suicidal ideation COUNT INCLUDES THE [facility] Past Medical History Medical History (Updated 12/26/23 @ 20:02 by Andrés Ojeda) Nausea & vomiting Depression CKD (chronic kidney disease) stage 3, GFR 30-59 ml/min Hypertension Surgical History (Updated 11/17/23 @ 11:00 by Adelina Galeano NP) H/O knee surgery Family History Family History (Updated 11/17/23 @ 11:01 by Adelina Galeano NP) Mother Diabetes mellitus Social History Social History Household Members: None Housing: Homeless Do you presently have visiting nurse or other home services: No Comment: 1:1 sitter in for SI Patient Tobacco Use Status: Refuse Tobacco use screen Advance Directives: No Advance Directives Information Provided: No service: No Sexual orientation: Lesbian/Rocha/Homosexual Physical Exam ED Vital Signs: Vital Signs - 24 hr 12/26/23 18:51 Temperature 98.9 F Pulse Rate 88 Respiratory Rate 18 Blood Pressure 165/108 H Pulse Oximetry 94 Oxygen Delivery Method Room Air BMI result Body Mass Index 30.9 Const General: No confusion Nutritional Appearance: well nourished Orientation/consciousness: No confusion HENMT Head: Yes normocephalic and Yes atraumatic Throat: Yes posterior oropharynx normal Eyes Eyelids: Yes eyelids normal Conjunctivae: conjunctivae normal Sclerae: sclerae normal Corneas: corneas normal EOM: EOMs intact bilaterally Neck Neck: Yes full ROM Resp Effort & Inspection: normal respiratory effort, able to speak in complete sentences and not labored GI Inspection: No distended Palpation (GI): Soft to palpation, not firm, nontender, no guarding and not rigid Skin General skin exam: elasticity normal Neuro General: No confusion Cranial nerves: Yes CN's II-XII intact bilaterally and Yes Bilaterally intact EOM present Cognition (Neuro): normal cognition Extrem Other: Moving all extremities well without any obvious deformities Psych Appearance: grossly normal Mental Status: mental status grossly normal Speech and movement: Pressured speech present Affect: Labile affect present Attitude: cooperative Thought process: Loose association thought process present Thought content: Suicidality present Insight: Limited insight present (Psych) Judgement: Limited judgement present (Psych) Course Reevaluation(s) Reevaluation #1: Patient is seen by the care team and will be a bed search for inpatient psychiatric care Time: 23:00 Medications Administered Generic Name Dose Route Start Last Admin Trade Name Freq PRN Reason Stop Dose Admin Clonidine HCl 0.1 mg 12/26/23 21:00 12/26/23 20:29 Clonidine Hcl 0.1 Mg Tablet PO 0.1 mg BID MITCHELL Administration Protocol Hydralazine HCl 10 mg 12/26/23 21:00 12/26/23 20:29 Hydralazine Hcl 10 Mg Tablet PO 10 mg TID MITCHELL Administration Protocol Quetiapine Fumarate 300 mg 12/26/23 21:00 12/26/23 22:05 Quetiapine Fumarate 300 Mg Tablet PO Not Given BEDTIME MITCHELL Discontinued Medications Generic Name Dose Route Start Last Admin Trade Name Freq PRN Reason Stop Dose Admin Quetiapine Fumarate 50 mg 12/26/23 20:36 12/26/23 20:42 Quetiapine Fumarate 50 Mg Tablet PO 12/26/23 20:37 50 mg ONCE ONE Administration Medical Decision Making Medical Decision Making [facility] Narrative: 58 old female with past medical history significant for bipolar disorder presents for evaluation of suicidal ideation. She will require medical clearance and care to evaluation. During my exam the patient appears manic but also expresses suicidal ideation Differential Diagnosis Differential Diagnoses: The differential diagnosis associated with the presentation includes Acute hyacinth Bipolar disorder Depression Suicidal ideation Substance abuse Lab Data [facility] Lab Attestation statement: I reviewed the patient's lab results. No leukocytosis or anemia. Normal platelet count. Chemistries currently pending tox screen positive for fentanyl 12/26/23 19:36 12/26/23 19:36 Labs: Lab Results 12/26/23 12/26/23 Range/Units 19:30 19:36 WBC 5.5 (4.8-10.8) X10*3/uL RBC 4.51 (4.20-5.50) X10*6/uL Hgb 13.8 (12.0-16.0) g/dl Hct 39.7 (37.0-47.0) % MCV 88.0 (80.0-98.0) fL MCH 30.6 (27.0-33.0) pg MCHC 34.8 (31.0-35.0) g/dl RDW 12.6 (11.0-16.0) % Plt Count 226 (160-400) X10*3/uL MPV 9.9 (9.4-12.3) fL Immature Gran % (Auto) 0.2 (0.0-0.4) % Neut % (Auto) 77.0 H (45-73) % Lymph % (Auto) 11.8 L (20-40) % [place] % (Auto) 8.7 (2-11) % Eos % (Auto) 1.8 (0-4) % Baso % (Auto) 0.5 (0-2) % Lymph # (Auto) 0.7 L (1.2-4.9) X10*3/uL [place] # (Auto) 0.5 (0.1-1.2) X10*3/uL Eos # (Auto) 0.1 (0.0-0.4) X10*3/uL Baso # (Auto) 0.0 (0.0-0.2) X10*3/uL Abs Immat Gran (auto) 0.01 (0.00-0.03) X10*3/uL Absolute Neuts (auto) 4.3 (2.0-8.3) x10*3/uL Absolute Nucleated RBC 0.000 (0.0-0.012) X10*3/uL Nucleated RBC % (auto) 0.0 (0.0-0.2) /100WBC Sodium 139 (135-145) mmol/L Potassium 3.7 (3.3-5.1) mmol/L Chloride 109 H (96-108) mmol/L Carbon Dioxide 23 (22-29) mmol/L Anion Gap 11 L (12-20) BUN 16 (9-16) mg/dL Creatinine 0.95 (0.5-1.4) mg/dL Estim Creat Clear Calc 65.0 Estimated GFR > 60 Random Glucose 104 (60-115) mg/dL Calcium 10.2 (8.4-10.2) mg/dL Total Bilirubin 0.8 (0.0-1.0) mg/dL AST 22 (5-31) U/L ALT 44 H (0-31) U/L Alkaline Phosphatase 96 (39-117) U/L Total Protein 7.0 (6.5-8.0) g/dL Albumin 4.1 (3.5-5.0) g/dL Urine Color Yellow Urine Appearance Clear Urine pH 5.5 (5.0-9.0) Ur Specific [place] 1.010 (1.005-1.025) Urine Protein Negative (Neg-Trace) mg/dL Urine Glucose (UA) Negative (Negative) mg/dL Urine Ketones Negative (Negative) mg/dL Urine Blood Negative (Negative) Urine Nitrite Negative (Negative) Ur Leukocyte Esterase Negative (Negative) Urine RBC 0-2 (0-2) /HPF Urine WBC 0-5 (0-5) /HPF Ur Squamous Epith Cells 0-2 (0-2) /HPF Urine Bacteria None Seen (None Seen) Hyaline Casts 0-2 (0-2) /LPF Salicylates < 5.0 L (15-30) mg/dL Urine Opiates Screen Not Detected (Not Detect) Urine Fentanyl Screen POSITIVE H (Not Detect) Acetaminophen < 3 (<30) mcg/mL Ur Barbiturates Screen Not Detected (Not Detect) Ur Phencyclidine Scrn Not Detected (Not Detect) Ur Amphetamines Screen Not Detected (Not Detect) U Benzodiazepines Scrn Not Detected (Not Detect) Urine Cocaine Screen Not Detected (Not Detect) U Marijuana (THC) Screen Not Detected (Not Detect) Ethyl Alcohol < 10 mg/dL Discharge Plan Discharge Clinical Impression: Bipolar 1 disorder, Suicidal ideation Patient Disposition: Still a Patient Prescriptions: No Action quetiapine 300 mg Tablet 300 mg PO BEDTIME 30 Days Qty: 30 0RF quetiapine 50 mg Tablet 50 mg PO DAILY@1330 30 Days Qty: 30 0RF hydralazine 10 mg Tablet 10 mg PO TID 30 Days Qty: 90 0RF Protocol: Hold for SBP< HOLD for SBP < : 90 clonidine HCl 0.1 mg tablet 0.1 mg PO BID 30 Days Qty: 60 0RF metoprolol succinate 50 mg Tablet Extended Release 24 Hr 50 mg PO DAILY 30 Days Qty: 30 0RF Protocol: Hold for SBP/HR < HOLD for SBP < : 90 HOLD for HR < : 60 amlodipine 10 mg Tablet 10 mg PO DAILY 30 Days Qty: 30 0RF Protocol: Hold for SBP< HOLD for SBP < : 90 omeprazole 20 mg Capsule,Delayed Release(Dr/Ec) 20 mg PO BID@0630,1630 30 Days Qty: 60 0RF Interventions: Snyder-Suicide Risk Severity Scale Last Done: 12/26/23 20:37 Print Language: Serbian
[2023-12-26 19:57] LABS: Alanine Aminotransferase 44 U/L (0-31); Albumin Level 4.1 g/dL (3.5-5.0); Alkaline Phosphatase 96 U/L (39-117); Anion Gap 11 (12-20); Aspartate Amino Transferase 22 U/L (5-31); Bilirubin Total 0.8 mg/dL (0.0-1.0); Blood Urea Nitrogen 16 mg/dL (9-16); Calcium 10.2 mg/dL (8.4-10.2); Carbon Dioxide 23 mmol/L (22-29); Chloride 109 mmol/L (96-108); Estimated Glomerular Filt Rate > 60; Glucose Random 104 mg/dL (60-115); Potassium 3.7 mmol/L (3.3-5.1); Sodium 139 mmol/L (135-145)
[2023-12-26 19:59] LABS: Acetaminophen LAB < 3 mcg/mL (<30); Salicylate < 5.0 mg/dL (15-30)
[2023-12-26] MEDS: hydrALAZINE HCl 10 MG TABLET PO (20:29)
[2023-12-26] MEDS: cloNIDine HCL 0.1 MG TABLET PO (20:29)
[2023-12-26] MEDS: QUEtiapine Fumarate 50 MG TABLET PO (20:42)
[2023-12-26 21:03] LABS: Ethanol < 10 mg/dL
--- NOTE | 2023-12-27 | ECG_ITS ---
Test Reason : QTC Prolongation Rule out Blood Pressure : / mmHG Vent. Rate : 079 BPM Atrial Rate : 079 BPM P-R Int : 166 ms QRS Dur : 068 ms QT Int : 344 ms P-R-T Axes : 019 -30 010 degrees QTc Int : 394 ms Normal sinus rhythm Left axis deviation Abnormal ECG When compared with ECG of 17-NOV-2023 09:37, No significant change was found Referred By: Tucker Guevara Electronically Signed By:Scott Harley
[2023-12-27 05:47] VITALS: BP 148/94; PULSE 74; RESP 16; TEMP 36.4; O2SAT 97
--- NOTE | 2023-12-27 08:32 | PC.NURSE ---
Assumed care of patient at 0645, patient awake, sitting on bed in BH 4, offering this RN no complains, respirations even and unlabored, no apparent distress. Continue plan of care for inpatient bedsearch
[2023-12-27] MEDS: cloNIDine HCL 0.1 MG TABLET PO ×2 (08:51→20:30)
[2023-12-27] MEDS: Metoprolol Succinate ER 50 MG TAB.ER.24H PO (08:51)
[2023-12-27] MEDS: amLODIPine Besylate 10 MG TABLET PO (08:51)
[2023-12-27] MEDS: hydrALAZINE HCl 10 MG TABLET PO ×2 (09:11→20:31)
--- NOTE | 2023-12-27 11:35 | PC.NURSE ---
Patient requests jacobo or jl valerio for lunch with vanilla ice cream
--- NOTE | 2023-12-27 13:03 | PC.NURSE ---
report given to py floor rn
[2023-12-27] MEDS: QUEtiapine Fumarate 50 MG TABLET PO (13:48)
[2023-12-27 14:00] LABS: COVID-19 Test Negative (Negative); IDNOW Serial# 152EDE1D
[2023-12-27 15:24] VITALS: BP 140/90; PULSE 80; RESP 18; TEMP 37.2; O2SAT 97; BMI 28.5
[2023-12-27 18:00] VITALS: BP 137/91; PULSE 88; RESP 17; TEMP 36.6; O2SAT 97
[2023-12-27] MEDS: QUEtiapine Fumarate 300 MG TABLET PO (20:31)
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
[2023-12-28 07:38] LABS: Estimated Average Glucose 123 mg/dL; Hemoglobin A1c % 5.9 % (<6.0)
[2023-12-28 07:42] LABS: Alanine Aminotransferase 33 U/L (0-31); Albumin Level 3.7 g/dL (3.5-5.0); Alkaline Phosphatase 83 U/L (39-117); Aspartate Amino Transferase 20 U/L (5-31); Blood Urea Nitrogen 14 mg/dL (9-16); Calcium 10.5 mg/dL (8.4-10.2); Cholesterol 201 mg/dL (<200); Creatinine Clr Calc Pharmacy 59.6; Estimated Glomerular Filt Rate 52; Glucose Fasting 106 mg/dL (60-99); HDL Cholesterol 53 mg/dL (>40); LDL Cholesterol Calculated 126 mg/dL (<100); Total Protein 6.5 g/dL (6.5-8.0); Triglycerides 110 mg/dL (<150)
[2023-12-28 07:55] LABS: Anion Gap 11 (12-20); Carbon Dioxide 26 mmol/L (22-29); Chloride 110 mmol/L (96-108); Potassium 4.5 mmol/L (3.3-5.1); Sodium 142 mmol/L (135-145)
[2023-12-28 08:00] VITALS: BP 139/73; PULSE 69; RESP 16; TEMP 36.2; O2SAT 97
[2023-12-28] MEDS: amLODIPine Besylate 10 MG TABLET PO (08:50)
[2023-12-28] MEDS: cloNIDine HCL 0.1 MG TABLET PO ×2 (08:50→20:24)
[2023-12-28] MEDS: hydrALAZINE HCl 10 MG TABLET PO ×4 (08:50→20:30)
[2023-12-28] MEDS: Metoprolol Succinate ER 50 MG TAB.ER.24H PO (08:51)
[2023-12-28] MEDS: Acetaminophen 325 MG TABLET 650 MG PO (09:36)
[2023-12-28] MEDS: Throat Lozenge, Medicated LOZENGE 1 LOZENGE MUCOUS MEM (14:17)
[2023-12-28] MEDS: QUEtiapine Fumarate 50 MG TABLET PO (14:17)
[2023-12-28 18:00] VITALS: BP 140/88; PULSE 76; RESP 17; TEMP 36.6; O2SAT 98
[2023-12-28] MEDS: QUEtiapine Fumarate 300 MG TABLET PO (20:24)
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
[2023-12-29] MEDS: OLANZapine 5 MG TABLET PO ×2 (01:50→08:16)
[2023-12-29] MEDS: traZODone HCL 50 MG TABLET PO (01:50)
[2023-12-29 08:10] VITALS: BP 151/103; PULSE 96; RESP 16; TEMP 36.6; O2SAT 96
[2023-12-29] MEDS: cloNIDine HCL 0.1 MG TABLET PO ×2 (08:15→21:21)
[2023-12-29] MEDS: amLODIPine Besylate 10 MG TABLET PO (08:15)
[2023-12-29] MEDS: Throat Lozenge, Medicated LOZENGE 1 LOZENGE MUCOUS MEM (08:15)
[2023-12-29] MEDS: Metoprolol Succinate ER 50 MG TAB.ER.24H PO (08:15)
[2023-12-29] MEDS: hydrOXYzine HCL 25 MG TABLET PO ×2 (08:16→21:21)
[2023-12-29] MEDS: hydrALAZINE HCl 10 MG TABLET PO ×3 (08:16→21:21)
[2023-12-29 10:35] VITALS: BP 142/84
[2023-12-29] MEDS: QUEtiapine Fumarate 50 MG TABLET PO (13:27)
[2023-12-29 19:04] VITALS: BP 160/92; PULSE 68; RESP 16; TEMP 36.5; O2SAT 97
--- NOTE | 2023-12-29 22:36 | HO.PHPPROGNO ---
Subjective Subjective Date of Service: 12/29/23 Reason For Visit: DEPRESSION si Review of Systems Constitutional: Denies body ache(s), Denies chills and Denies fever(s) Eyes: Denies blurry vision Denies sore throat Cardiovascular: Denies chest pain and Denies dyspnea Respiratory: Denies cough and Denies dyspnea Gastrointestinal: Denies abdominal pain, Denies nausea and Denies vomiting Musculoskeletal: Denies back pain Skin/Breast: Denies rash Denies confusion Psychiatric: Denies anxiety, Denies confusion, Reports depression and Reports suicidal ideation Diagnostics Vital Signs (24Hr): Vital Signs - 24 hr 12/29/23 08:10 12/29/23 10:35 12/29/23 19:04 Temperature 98 F 97.7 F Pulse Rate 96 68 Respiratory Rate 16 16 Blood Pressure 151/103 H 142/84 H 160/92 H Pulse Oximetry 96 97 Oxygen Delivery Method Room Air Room Air BMI result Body Mass Index 28.5 Labs 12/26/23 19:36 12/28/23 07:07 Labs: Laboratory Results - last 48 hr 12/28/23 07:07 Sodium 142 Potassium 4.5 D Chloride 110 H Carbon Dioxide 26 Anion Gap 11 L BUN 14 Creatinine 1.07 Estim Creat Clear Calc 59.6 Estimated GFR 52 Fasting Glucose 106 H Estimat Average Glucose 123 Hemoglobin A1c % 5.9 Calcium 10.5 H Total Bilirubin 1.0 AST 20 ALT 33 H Alkaline Phosphatase 83 Total Protein 6.5 Albumin 3.7 Triglycerides 110 Cholesterol 201 H LDL Cholesterol, Calc 126 H HDL Cholesterol 53 Assessment & Plan Certification I certify that partial hospital treatment is medically necessary due to the symptoms and problems resulting from the patient's mental illness and the failure to treat the patient at the partial hospital level of care would likely result in the patient requiring inpatient psychiatric care which could not be prevented at a less intensive level of care. Total time managing care of this patient today ____ minutes. Discharge Plan Discharge Referrals: Physician,Mini J [Primary Care Provider] - 1 Week Discharge Medications: No Action quetiapine 300 mg Tablet 300 mg PO BEDTIME 30 Days Qty: 30 0RF quetiapine 50 mg Tablet 50 mg PO DAILY@1330 30 Days Qty: 30 0RF hydralazine 10 mg Tablet 10 mg PO TID 30 Days Qty: 90 0RF Protocol: Hold for SBP< HOLD for SBP < : 90 clonidine HCl 0.1 mg tablet 0.1 mg PO BID 30 Days Qty: 60 0RF metoprolol succinate 50 mg Tablet Extended Release 24 Hr 50 mg PO DAILY 30 Days Qty: 30 0RF Protocol: Hold for SBP/HR < HOLD for SBP < : 90 HOLD for HR < : 60 amlodipine 10 mg Tablet 10 mg PO DAILY 30 Days Qty: 30 0RF Protocol: Hold for SBP< HOLD for SBP < : 90 omeprazole 20 mg Capsule,Delayed Release(Dr/Ec) 20 mg PO BID@0630,1630 30 Days Qty: 60 0RF Print Language: [place]ian
--- NOTE | 2023-12-29 22:57 | P.PNPSI_ITS ---
Subjective Subjective Date of Service: 12/29/23 Reason For Visit: DEPRESSION si Interim History: Patient found again quietly sitting in chair in her room looking sullen and angry. She brightened momentarily when I presented with a carton milk, like as she requested the day before. She unleashed a fury of complaints about the facility, her roommate, the quality of the food and the unit this place is a sh-thole . She continues perseverating on frustrations about her [id number], I'd drag that b&*h . States she Mental Status Exam Mental Status Exam Narrative: Alert and oriented in no acute distress. Shaved head. No tics, tremors or abnormal movements noted. No psychomotor agitation or neurovegetative retardation. Isolative to self, sitting calmly, but quickly becomes angry and belligerent when provoked. Speech is rapid, loud and pressured, abundant content and profanity. Mood depressed, angry. Affect fluctuates between irritable to hostile, moments of brightening with congruency. Thought process perseverative, tangential with some FOI, but no APOORVA. Thought content relevant for grandiose, hyperreligious and delusional content, +SI with plan but no intent, +aggressive ideation toward [id number] with no plan to cause harm. Vague paranoia. Denies AH or VH. Sensorium clear, cognition grossly intact. Insight impaired, judgment fair. Diagnostics Vital Signs (24Hr): Vital Signs - 24 hr 12/29/23 08:10 12/29/23 10:35 12/29/23 19:04 Temperature 98 F 97.7 F Pulse Rate 96 68 Respiratory Rate 16 16 Blood Pressure 151/103 H 142/84 H 160/92 H Pulse Oximetry 96 97 Oxygen Delivery Method Room Air Room Air BMI result Body Mass Index 28.5 Labs 12/26/23 19:36 12/28/23 07:07 Labs: Laboratory Results - last 48 hr 12/28/23 07:07 Sodium 142 Potassium 4.5 D Chloride 110 H Carbon Dioxide 26 Anion Gap 11 L BUN 14 Creatinine 1.07 Estim Creat Clear Calc 59.6 Estimated GFR 52 Fasting Glucose 106 H Estimat Average Glucose 123 Hemoglobin A1c % 5.9 Calcium 10.5 H Total Bilirubin 1.0 AST 20 ALT 33 H Alkaline Phosphatase 83 Total Protein 6.5 Albumin 3.7 Triglycerides 110 Cholesterol 201 H LDL Cholesterol, Calc 126 H HDL Cholesterol 53 Medications Medications Current Medications Acetaminophen (Acetaminophen 325 Mg Tablet) 650 mg PO Q6H PRN PRN Reason: Headache/Pain Mild Scale (1-3) Last Admin: 12/28/23 09:36 Dose: 650 mg Al Hydroxide/Mg Hydroxide (Magnesium Hydrox/Alum Hydrox 30 Ml Oral.Susp) 30 ml PO Q6H PRN PRN Reason: Heartburn/Nausea Amlodipine Besylate (Amlodipine Besylate 10 Mg Tablet) 10 mg PO DAILY [facility]; Protocol Last Admin: 12/29/23 08:15 Dose: 10 mg Benzocaine (Throat Lozenge, Medicated Lozenge) 1 lozenge MUCOUS MEM Q2H PRN PRN Reason: Sore Throat Last Admin: 12/29/23 08:15 Dose: 1 lozenge Clonidine HCl (Clonidine Hcl 0.1 Mg Tablet) 0.1 mg PO BID [facility]; Protocol Last Admin: 12/29/23 21:21 Dose: 0.1 mg Hydralazine HCl (Hydralazine Hcl 10 Mg Tablet) 10 mg PO TID [facility]; Protocol Last Admin: 12/29/23 21:21 Dose: 10 mg Hydroxyzine HCl (Hydroxyzine Hcl 25 Mg Tablet) 25 mg PO Q6H PRN PRN Reason: Anxiety Last Admin: 12/29/23 21:21 Dose: 25 mg Magnesium Hydroxide (Milk Of Magnesia 30 Ml Oral.Susp) 30 ml PO DAILY PRN PRN Reason: Constipation Metoprolol Succinate (Metoprolol Succinate Er 50 Mg Tab.Er.24h) 50 mg PO DAILY [facility]; Protocol Last Admin: 12/29/23 08:15 Dose: 50 mg Nicotine (Nicotine 21 Mg Patch.Td24) 21 mg TRANSDERMA DAILY PRN PRN Reason: smoking cessation Nicotine Polacrilex (Nicotine Polacrilex 2 Mg Gum) 4 mg BUCCAL Q2H PRN PRN Reason: Nicotine Cravings Olanzapine (Olanzapine 5 Mg Tablet) 5 mg PO QID PRN PRN Reason: agitation Omeprazole (Omeprazole 20 Mg Capsule.Dr) 20 mg PO BID@0630,1630 [facility] Last Admin: 12/29/23 16:40 Dose: Not Given Quetiapine Fumarate (Quetiapine Fumarate 50 Mg Tablet) 50 mg PO DAILY@1330 [facility] Last Admin: 12/29/23 13:27 Dose: 50 mg Quetiapine Fumarate (Quetiapine Fumarate 300 Mg Tablet) 300 mg PO BEDTIME [facility] Last Admin: 12/28/23 20:24 Dose: 300 mg Trazodone HCl (Trazodone Hcl 50 Mg Tablet) 50 mg PO BEDTIME MRX1 PRN PRN Reason: Insomnia Last Admin: 12/29/23 01:50 Dose: 50 mg Allergies Allergies Allergy/AdvReac Type Severity Reaction Status Date / Time [place] And Derivatives Allergy Severe Hives Verified 12/26/23 18:53 strawberry Allergy Severe Hives Verified 12/26/23 18:53 Assessment & Plan Assessment & Plan (1) Bipolar I, most recent episode mixed, severe: Status: Acute Code(s): F31.63 - Bipolar disorder, current episode mixed, severe, without psychotic features Plan Admit to unit VS as per protocol continue regular medications Patient put on 5 min checks and sheets removed from room Encouraged to engage in milieu Dispo planning as per network development coordinator Reason for continued inpatient stay Substantial Risk for: harm to self, harm to others, inability to function, rapid decompensation and med/psych decompensation Time Spent With Patient Time: Total time managing care of this patient today ____ minutes.
[2023-12-30] MEDS: traZODone HCL 50 MG TABLET PO ×2 (00:26→20:48)
[2023-12-30] MEDS: hydrALAZINE HCl 10 MG TABLET PO ×3 (08:45→20:48)
[2023-12-30] MEDS: Metoprolol Succinate ER 50 MG TAB.ER.24H PO (08:45)
[2023-12-30] MEDS: amLODIPine Besylate 10 MG TABLET PO (08:46)
[2023-12-30] MEDS: cloNIDine HCL 0.1 MG TABLET PO ×2 (08:46→20:48)
[2023-12-30] MEDS: Acetaminophen 325 MG TABLET 650 MG PO (09:00)
[2023-12-30 09:15] VITALS: BP 145/86; PULSE 88; RESP 16; TEMP 36.9; O2SAT 98
--- NOTE | 2023-12-30 09:51 | HO.PSYCHPN ---
Subjective Subjective Date of Service: 12/30/23 Reason For Visit: DEPRESSION si Subjective Notes: Conditional Voluntary Interim History: 58 yo HAF, known to me from prior admit- requesting inc seroquel, as she feels it is not stabilizing her mood, nursing agrees she is irritable and unpredictable- ekg reviewed from 12/26 is ok for inc- seroquel - Medication Compliance: Yes Side effects from medications: No Attending Groups: No Review of Systems Acute medical concerns: No though I restarted spiranalactone she was on last fill 09/2023 for 90d 25mg , since she has been off I restarted 12.5mg Medical Review of Systems: unchanged Mental Status Exam Mental Status Exam Patient Appearance: Appropriate Patient Orientation: Person, Place, Time and Situation Level of Consciousness: Awake Patient Behavior: Talkative and Good Eye Contact Mood Description: Calm (with this provider- but prefers hindu providers) Affect Description: Labile Patient Cognition Impaired: Yes Ability to Follow Directions: Fair Speech Pattern: Mumbled Hallucinations: Visual Thought Process: Intact Thought Content: positive for Goal Oriented Depressive Symptoms: Increased Irritability Judgement: Fair Diagnostics Vital Signs (24Hr): Vital Signs - 24 hr 12/29/23 10:35 12/29/23 19:04 12/30/23 09:15 Temperature 97.7 F 98.4 F Pulse Rate 68 88 Respiratory Rate 16 16 Blood Pressure 142/84 H 160/92 H 145/86 H Pulse Oximetry 97 98 Oxygen Delivery Method Room Air Room Air BMI result Body Mass Index 28.5 Labs 12/26/23 19:36 12/28/23 07:07 EKG EKG Comment: 12/26 reviewed ekg and qtc or for inc seroquel Medications Medications Current Medications Acetaminophen (Acetaminophen 325 Mg Tablet) 650 mg PO Q6H PRN PRN Reason: Headache/Pain Mild Scale (1-3) Last Admin: 12/30/23 09:00 Dose: 650 mg Al Hydroxide/Mg Hydroxide (Magnesium Hydrox/Alum Hydrox 30 Ml Oral.Susp) 30 ml PO Q6H PRN PRN Reason: Heartburn/Nausea Amlodipine Besylate (Amlodipine Besylate 10 Mg Tablet) 10 mg PO DAILY [facility]; Protocol Last Admin: 12/30/23 08:46 Dose: 10 mg Benzocaine (Throat Lozenge, Medicated Lozenge) 1 lozenge MUCOUS MEM Q2H PRN PRN Reason: Sore Throat Last Admin: 12/29/23 08:15 Dose: 1 lozenge Clonidine HCl (Clonidine Hcl 0.1 Mg Tablet) 0.1 mg PO BID [facility]; Protocol Last Admin: 12/30/23 08:46 Dose: 0.1 mg Hydralazine HCl (Hydralazine Hcl 10 Mg Tablet) 10 mg PO TID [facility]; Protocol Last Admin: 12/30/23 08:45 Dose: 10 mg Hydroxyzine HCl (Hydroxyzine Hcl 25 Mg Tablet) 25 mg PO Q6H PRN PRN Reason: Anxiety Last Admin: 12/29/23 21:21 Dose: 25 mg Magnesium Hydroxide (Milk Of Magnesia 30 Ml Oral.Susp) 30 ml PO DAILY PRN PRN Reason: Constipation Metoprolol Succinate (Metoprolol Succinate Er 50 Mg Tab.Er.24h) 50 mg PO DAILY [facility]; Protocol Last Admin: 12/30/23 08:45 Dose: 50 mg Nicotine (Nicotine 21 Mg Patch.Td24) 21 mg TRANSDERMA DAILY PRN PRN Reason: smoking cessation Nicotine Polacrilex (Nicotine Polacrilex 2 Mg Gum) 4 mg BUCCAL Q2H PRN PRN Reason: Nicotine Cravings Olanzapine (Olanzapine 5 Mg Tablet) 5 mg PO QID PRN PRN Reason: agitation Omeprazole (Omeprazole 20 Mg Capsule.Dr) 20 mg PO BID@0630,1630 [facility] Last Admin: 12/30/23 04:52 Dose: Not Given Quetiapine Fumarate (Quetiapine Fumarate 50 Mg Tablet) 50 mg PO DAILY@1330 [facility] Last Admin: 12/29/23 13:27 Dose: 50 mg Quetiapine Fumarate (Quetiapine Fumarate 300 Mg Tablet) 300 mg PO BEDTIME [facility] Last Admin: 12/28/23 20:24 Dose: 300 mg Trazodone HCl (Trazodone Hcl 50 Mg Tablet) 50 mg PO BEDTIME MRX1 PRN PRN Reason: Insomnia Last Admin: 12/30/23 00:26 Dose: 50 mg Allergies Allergies Allergy/AdvReac Type Severity Reaction Status Date / Time [place] And Derivatives Allergy Severe Hives Verified 12/26/23 18:53 strawberry Allergy Severe Hives Verified 12/26/23 18:53 Assessment & Plan Assessment & Plan (1) Bipolar I, most recent episode mixed, severe: Status: Acute Code(s): F31.63 - Bipolar disorder, current episode mixed, severe, without psychotic features Assessment and Plan: 12/29 -checked qtc on ekg from 12/26 and increased the seroquel to 400mg qhs and 100mg mid day- as per pt request Patient educated on: medication risk/benefits Informed Consent: understands Reason for continued inpatient stay Substantial Risk for: rapid decompensation Time Spent With Patient Time: Total time managing care of this patient today ____ minutes.
[2023-12-30 11:30] VITALS: BP 145/93; PULSE 74
[2023-12-30] MEDS: Spironolactone 25 MG TABLET 12.5 MG PO (11:33)
[2023-12-30 14:15] VITALS: BP 149/96; PULSE 80
[2023-12-30] MEDS: QUEtiapine Fumarate 50 MG TABLET PO (14:16)
--- NOTE | 2023-12-30 16:51 | PC.NURSE ---
Pt refused EKG.
[2023-12-30 18:00] VITALS: RESP 18
--- NOTE | 2023-12-30 18:29 | PC.NURSE ---
Pt signed a written release for Ginette Riley ([id number]). Pt requested staff speak to Ginette Riley and request that clothing items and sandals for the shower be brought in. Pt stated she was too upset to make the phone call herself. Pt informed that staff would make one phone call to Ginette Arce to request items. This commercial real estate underwriter spoke to Ginette Riley [phone] and relayed pt's request. Ginette stated that she would look into it and possibly drop off to the unit. Ginette stated I don't have her clothes, she already took them, but I will look for the sandals. Ginette added There's really nothing else I can do for her. Pt updated that phone call to Ginette Riley occurred and that Ginette had reported she would look into it.
[2023-12-30] MEDS: QUEtiapine Fumarate 300 MG TABLET PO (20:48)
[2023-12-30] MEDS: Throat Lozenge, Medicated LOZENGE 1 LOZENGE MUCOUS MEM (20:51)
[2023-12-31] MEDS: OLANZapine 5 MG TABLET PO (06:42)
[2023-12-31] MEDS: hydrOXYzine HCL 25 MG TABLET PO (06:56)
[2023-12-31 08:45] VITALS: BP 156/92; PULSE 80
[2023-12-31] MEDS: amLODIPine Besylate 10 MG TABLET PO (08:48)
[2023-12-31] MEDS: hydrALAZINE HCl 10 MG TABLET PO ×3 (08:48→20:03)
[2023-12-31] MEDS: cloNIDine HCL 0.1 MG TABLET PO ×2 (08:48→20:03)
[2023-12-31] MEDS: Metoprolol Succinate ER 50 MG TAB.ER.24H PO (08:49)
[2023-12-31] MEDS: Spironolactone 25 MG TABLET 12.5 MG PO (08:50)
[2023-12-31 14:40] VITALS: BP 138/84; PULSE 71
[2023-12-31 14:42] VITALS: BP 138/84
[2023-12-31] MEDS: QUEtiapine Fumarate 100 MG TABLET PO (14:42)
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
[2023-12-31 17:20] VITALS: BP 161/90; PULSE 83; RESP 16; TEMP 36.5; O2SAT 97
[2023-12-31] MEDS: Throat Lozenge, Medicated LOZENGE 1 LOZENGE MUCOUS MEM (19:20)
[2023-12-31] MEDS: QUEtiapine Fumarate 400 MG TABLET PO (20:02)
[2024-01-01] MEDS: traZODone HCL 50 MG TABLET PO ×2 (01:08→20:57)
[2024-01-01] MEDS: Throat Lozenge, Medicated LOZENGE 1 LOZENGE MUCOUS MEM ×3 (01:08→21:20)
[2024-01-01 08:00] VITALS: BP 128/92; PULSE 80; RESP 16; TEMP 36.4; O2SAT 98
[2024-01-01] MEDS: Metoprolol Succinate ER 50 MG TAB.ER.24H PO (08:16)
[2024-01-01] MEDS: cloNIDine HCL 0.1 MG TABLET PO ×2 (08:17→20:56)
[2024-01-01] MEDS: Spironolactone 25 MG TABLET 12.5 MG PO (08:17)
[2024-01-01] MEDS: amLODIPine Besylate 10 MG TABLET PO (08:17)
[2024-01-01] MEDS: hydrALAZINE HCl 10 MG TABLET PO ×3 (08:17→20:57)
--- NOTE | 2024-01-01 13:14 | HO.PSYCHPN ---
Subjective Subjective Date of Service: 01/01/24 Reason For Visit: DEPRESSION si Subjective Notes: Conditional Voluntary Healthcare Proxy: No Guardianship: No Medical Problems Affecting Mental Status: No Interim History: Arabella reports inability to sleep due to unit activity, pt agitation with peers. She continues to request a move to or to have a private room. Discussed low dose Ambien to assist with sleep she agrees. Today, she spoke of her life, traumas, losses and perspective of how these have had effect upon her and her family. She declines further medication changes at this time. She is willing to work with the team on current issues. Medication Compliance: Yes Side effects from medications: No Attending Groups: No Review of Systems Acute medical concerns: No Medical Review of Systems: unchanged Review of Systems Review of Systems Yes all other systems are reviewed and are negative Mental Status Exam Mental Status Exam Patient Appearance: Fatigued and Appropriate Patient Orientation: Person, Place and Situation Level of Consciousness: Alert Patient Behavior: Appropriate, Talkative, Cooperative, Anxious, Distractible and Good Eye Contact Mood Description: Anxious, Labile, Apprehensive and Expansive Affect Description: Labile and Expansive Patient Cognition Impaired: No Ability to Follow Directions: Good Speech Pattern: Spontaneous Speech Memory Description: Episodic Impaired Hallucinations: None Delusions: Grandiose and Present Perceptual Disturbances: Derealization Thought Process: Racing, Distracted and Goal Oriented Thought Content: positive for Flight of Ideas, positive for Circumstantial, positive for Goal Oriented, positive for Suicidal Ideation and positive for Homicidal Ideation Depressive Symptoms: Increased Anxiety, Insomnia, Difficulty Sleeping and Thoughts of /Suicide Abnormal Motor Activity Signs and Symptoms: Hyperactivity Judgement: Fair Diagnostics Vital Signs (24Hr): Vital Signs - 24 hr 12/31/23 14:40 12/31/23 14:42 12/31/23 17:20 Temperature 97.7 F Pulse Rate 71 83 Respiratory Rate 16 Blood Pressure 138/84 138/84 161/90 H Pulse Oximetry 97 Oxygen Delivery Method Room Air 01/01/24 08:00 Temperature 97.5 F Pulse Rate 80 Respiratory Rate 16 Blood Pressure 128/92 H Pulse Oximetry 98 Oxygen Delivery Method Room Air BMI result Body Mass Index 28.5 Labs 12/26/23 19:36 12/28/23 07:07 Medications Medications Current Medications Acetaminophen (Acetaminophen 325 Mg Tablet) 650 mg PO Q6H PRN PRN Reason: Headache/Pain Mild Scale (1-3) Last Admin: 12/30/23 09:00 Dose: 650 mg [place] Hydroxide/Mg Hydroxide (Magnesium Hydrox/Alum Hydrox 30 Ml Oral.Susp) 30 ml PO Q6H PRN PRN Reason: Heartburn/Nausea Amlodipine Besylate (Amlodipine Besylate 10 Mg Tablet) 10 mg PO DAILY [facility]; Protocol Last Admin: 01/01/24 08:17 Dose: 10 mg Benzocaine (Throat Lozenge, Medicated Lozenge) 1 lozenge MUCOUS MEM Q2H PRN PRN Reason: Sore Throat Last Admin: 01/01/24 08:22 Dose: 1 lozenge Clonidine HCl (Clonidine Hcl 0.1 Mg Tablet) 0.1 mg PO BID [facility]; Protocol Last Admin: 01/01/24 08:17 Dose: 0.1 mg Hydralazine HCl (Hydralazine Hcl 10 Mg Tablet) 10 mg PO TID [facility]; Protocol Last Admin: 01/01/24 08:17 Dose: 10 mg Hydroxyzine HCl (Hydroxyzine Hcl 25 Mg Tablet) 25 mg PO Q6H PRN PRN Reason: Anxiety Last Admin: 12/31/23 06:56 Dose: 25 mg Magnesium Hydroxide (Milk Of Magnesia 30 Ml Oral.Susp) 30 ml PO DAILY PRN PRN Reason: Constipation Metoprolol Succinate (Metoprolol Succinate Er 50 Mg Tab.Er.24h) 50 mg PO DAILY [facility]; Protocol Last Admin: 01/01/24 08:16 Dose: 50 mg Nicotine (Nicotine 21 Mg Patch.Td24) 21 mg TRANSDERMA DAILY PRN PRN Reason: smoking cessation Nicotine Polacrilex (Nicotine Polacrilex 2 Mg Gum) 4 mg BUCCAL Q2H PRN PRN Reason: Nicotine Cravings Olanzapine (Olanzapine 5 Mg Tablet) 5 mg PO QID PRN PRN Reason: agitation Last Admin: 12/31/23 06:42 Dose: 5 mg Quetiapine Fumarate (Quetiapine Fumarate 100 Mg Tablet) 100 mg PO DAILY@1330 [facility] Last Admin: 12/31/23 14:42 Dose: 100 mg Quetiapine Fumarate (Quetiapine Fumarate 400 Mg Tablet) 400 mg PO BEDTIME [facility] Last Admin: 12/31/23 20:02 Dose: 400 mg Spironolactone (Spironolactone 25 Mg Tablet) 12.5 mg PO DAILY [facility]; Protocol Last Admin: 01/01/24 08:17 Dose: 12.5 mg Trazodone HCl (Trazodone Hcl 50 Mg Tablet) 50 mg PO BEDTIME MRX1 PRN PRN Reason: Insomnia Last Admin: 01/01/24 01:08 Dose: 50 mg Zolpidem Tartrate (Zolpidem Tartrate 5 Mg Tablet) 5 mg PO BEDTIME [facility] Allergies Allergies Allergy/AdvReac Type Severity Reaction Status Date / Time [place] And Derivatives Allergy Severe Hives Verified 12/26/23 18:53 strawberry Allergy Severe Hives Verified 12/26/23 18:53 Assessment & Plan Assessment & Plan (1) Bipolar I, most recent episode mixed, severe: Status: Acute Code(s): F31.63 - Bipolar disorder, current episode mixed, severe, without psychotic features Plan Admit to unit VS as per protocol continue regular medications Patient put on 5 min checks and sheets removed from room Encouraged to engage in milieu Dispo planning as per digital account coordinator 12/31/23- Continue current regime Attempt [facility] Pt has requested a transfer to . 01/01/24 Ambien 5 mg HS No other changes today. Reason for continued inpatient stay Substantial Risk for: rapid decompensation Time Spent With Patient Time: Total time managing care of this patient today ____ minutes.
[2024-01-01] MEDS: QUEtiapine Fumarate 100 MG TABLET PO (14:33)
[2024-01-01 20:00] VITALS: RESP 16
[2024-01-01] MEDS: QUEtiapine Fumarate 400 MG TABLET PO (20:57)
[2024-01-01] MEDS: Zolpidem Tartrate 5 MG TABLET PO (20:57)
[2024-01-02] VITALS (8 sets, daily range): BP systolic 117–158; BP diastolic 72–83; PULSE 65–96; RESP 18; TEMP 36.6–36.8; O2SAT 97–98; BMI 28.7
[2024-01-02] MEDS: Throat Lozenge, Medicated LOZENGE 1 LOZENGE MUCOUS MEM ×3 (00:52→06:38)
[2024-01-02] MEDS: traZODone HCL 50 MG TABLET PO (01:58)
[2024-01-02] MEDS: Magnesium Hydrox/Alum Hydrox 30 ML ORAL.SUSP PO ×3 (02:01→20:15)
[2024-01-02] MEDS: Acetaminophen 325 MG TABLET 650 MG PO (06:37)
[2024-01-02] MEDS: Spironolactone 25 MG TABLET 12.5 MG PO (10:39)
[2024-01-02] MEDS: amLODIPine Besylate 10 MG TABLET PO (10:40)
[2024-01-02] MEDS: cloNIDine HCL 0.1 MG TABLET PO ×2 (10:40→20:14)
[2024-01-02] MEDS: Metoprolol Succinate ER 50 MG TAB.ER.24H PO (10:41)
[2024-01-02] MEDS: hydrALAZINE HCl 10 MG TABLET PO ×3 (10:41→20:15)
[2024-01-02] MEDS: QUEtiapine Fumarate 100 MG TABLET PO (14:19)
--- NOTE | 2024-01-02 17:31 | HO.PSYCHPN ---
Subjective Subjective Date of Service: 01/02/24 Reason For Visit: DEPRESSION si Subjective Notes: Conditional Voluntary Healthcare Proxy: No Guardianship: No Medical Problems Affecting Mental Status: No Interim History: Pt reports ongoing poor sleep due to high acuity milieu. Discussed increase of Ambien from 5 mg to 10 mg. She agrees. Reports remainder of regime to be appropriate, without adverse effects and with reported efficacy. Discussed concerns about housing, lack of longterm availability and her ongoing work with [place] to find a permanent apartment. Declines groups, reports they exacerbate sx. Medication Compliance: Yes Side effects from medications: No Attending Groups: No Review of Systems Acute medical concerns: No Medical Review of Systems: unchanged Review of Systems Review of Systems Yes all other systems are reviewed and are negative Mental Status Exam Mental Status Exam Patient Appearance: Fatigued and Appropriate Patient Orientation: Person, Place and Situation Level of Consciousness: Alert Patient Behavior: Appropriate, Talkative, Cooperative, Anxious, Distractible and Good Eye Contact Mood Description: Anxious, Labile, Apprehensive and Expansive Affect Description: Labile and Expansive Patient Cognition Impaired: No Ability to Follow Directions: Good Speech Pattern: Spontaneous Speech Memory Description: Episodic Impaired Hallucinations: None Delusions: Grandiose and Present Perceptual Disturbances: Derealization Thought Process: Racing, Distracted and Goal Oriented Thought Content: positive for Flight of Ideas, positive for Circumstantial, positive for Goal Oriented, positive for Suicidal Ideation and positive for Homicidal Ideation Depressive Symptoms: Increased Anxiety, Insomnia, Difficulty Sleeping and Thoughts of /Suicide Abnormal Motor Activity Signs and Symptoms: Hyperactivity Judgement: Fair Diagnostics Vital Signs (24Hr): Vital Signs - 24 hr 01/01/24 20:00 01/02/24 08:00 01/02/24 10:39 Temperature 98.2 F Pulse Rate 96 Respiratory Rate 16 18 Blood Pressure 138/72 158/83 H Pulse Oximetry 98 Oxygen Delivery Method Room Air 01/02/24 10:40 01/02/24 10:40 01/02/24 10:41 Temperature Pulse Rate 93 Respiratory Rate Blood Pressure 158/83 H 158/83 H 158/83 H Pulse Oximetry Oxygen Delivery Method 01/02/24 10:41 01/02/24 14:19 Temperature Pulse Rate Respiratory Rate Blood Pressure 158/83 H 117/74 Pulse Oximetry Oxygen Delivery Method BMI result Body Mass Index 28.7 Labs 12/26/23 19:36 12/28/23 07:07 Medications Medications Current Medications Acetaminophen (Acetaminophen 325 Mg Tablet) 650 mg PO Q6H PRN PRN Reason: Headache/Pain Mild Scale (1-3) Last Admin: 01/02/24 06:37 Dose: 650 mg [place] Hydroxide/Mg Hydroxide (Magnesium Hydrox/Alum Hydrox 30 Ml Oral.Susp) 30 ml PO Q6H PRN PRN Reason: Heartburn/Nausea Last Admin: 01/02/24 14:26 Dose: 30 ml Amlodipine Besylate (Amlodipine Besylate 10 Mg Tablet) 10 mg PO DAILY [facility]; Protocol Last Admin: 01/02/24 10:40 Dose: 10 mg Benzocaine (Throat Lozenge, Medicated Lozenge) 1 lozenge MUCOUS MEM Q2H PRN PRN Reason: Sore Throat Last Admin: 01/02/24 06:38 Dose: 1 lozenge Clonidine HCl (Clonidine Hcl 0.1 Mg Tablet) 0.1 mg PO BID [facility]; Protocol Last Admin: 01/02/24 10:40 Dose: 0.1 mg Hydralazine HCl (Hydralazine Hcl 10 Mg Tablet) 10 mg PO TID [facility]; Protocol Last Admin: 01/02/24 14:19 Dose: 10 mg Hydroxyzine HCl (Hydroxyzine Hcl 25 Mg Tablet) 25 mg PO Q6H PRN PRN Reason: Anxiety Last Admin: 12/31/23 06:56 Dose: 25 mg Magnesium Hydroxide (Milk Of Magnesia 30 Ml Oral.Susp) 30 ml PO DAILY PRN PRN Reason: Constipation Metoprolol Succinate (Metoprolol Succinate Er 50 Mg Tab.Er.24h) 50 mg PO DAILY [facility]; Protocol Last Admin: 01/02/24 10:41 Dose: 50 mg Nicotine (Nicotine 21 Mg Patch.Td24) 21 mg TRANSDERMA DAILY PRN PRN Reason: smoking cessation Nicotine Polacrilex (Nicotine Polacrilex 2 Mg Gum) 4 mg BUCCAL Q2H PRN PRN Reason: Nicotine Cravings Olanzapine (Olanzapine 5 Mg Tablet) 5 mg PO QID PRN PRN Reason: agitation Last Admin: 12/31/23 06:42 Dose: 5 mg Quetiapine Fumarate (Quetiapine Fumarate 100 Mg Tablet) 100 mg PO DAILY@1330 [facility] Last Admin: 01/02/24 14:19 Dose: 100 mg Quetiapine Fumarate (Quetiapine Fumarate 400 Mg Tablet) 400 mg PO BEDTIME [facility] Last Admin: 01/01/24 20:57 Dose: 400 mg Spironolactone (Spironolactone 25 Mg Tablet) 12.5 mg PO DAILY [facility]; Protocol Last Admin: 01/02/24 10:39 Dose: 12.5 mg Trazodone HCl (Trazodone Hcl 50 Mg Tablet) 50 mg PO BEDTIME MRX1 PRN PRN Reason: Insomnia Last Admin: 01/02/24 01:58 Dose: 50 mg Zolpidem Tartrate (Zolpidem Tartrate 5 Mg Tablet) 10 mg PO BEDTIME [facility] Allergies Allergies Allergy/AdvReac Type Severity Reaction Status Date / Time [place] And Derivatives Allergy Severe Hives Verified 12/26/23 18:53 strawberry Allergy Severe Hives Verified 12/26/23 18:53 Assessment & Plan Assessment & Plan (1) Bipolar I, most recent episode mixed, severe: Status: Acute Code(s): F31.63 - Bipolar disorder, current episode mixed, severe, without psychotic features Plan Admit to unit VS as per protocol continue regular medications Patient put on 5 min checks and sheets removed from room Encouraged to engage in milieu Dispo planning as per environmental coordinator 01/02/24- Increase Ambien to 10 mg HS (milieu acuity keeping pt awake) Patient educated on: medication risk/benefits, therapeutic strategies and other Informed Consent: understands Reason for continued inpatient stay Substantial Risk for: rapid decompensation Time Spent With Patient Time: Total time managing care of this patient today ____ minutes.
[2024-01-02] MEDS: Zolpidem Tartrate 5 MG TABLET 10 MG PO (20:13)
[2024-01-02] MEDS: QUEtiapine Fumarate 400 MG TABLET PO (20:14)
[2024-01-03] MEDS: traZODone HCL 50 MG TABLET PO (01:03)
[2024-01-03] MEDS: Acetaminophen 325 MG TABLET 650 MG PO (04:52)
[2024-01-03 08:00] VITALS: BP 134/80; PULSE 57; RESP 16; TEMP 36.4; O2SAT 95
[2024-01-03] MEDS: cloNIDine HCL 0.1 MG TABLET PO ×2 (08:50→20:53)
[2024-01-03] MEDS: amLODIPine Besylate 10 MG TABLET PO (08:50)
[2024-01-03] MEDS: Throat Lozenge, Medicated LOZENGE 1 LOZENGE MUCOUS MEM ×2 (08:50→14:32)
[2024-01-03] MEDS: Metoprolol Succinate ER 50 MG TAB.ER.24H PO (08:51)
[2024-01-03] MEDS: OLANZapine 5 MG TABLET PO (08:51)
[2024-01-03] MEDS: Spironolactone 25 MG TABLET 12.5 MG PO (08:51)
[2024-01-03] MEDS: hydrALAZINE HCl 10 MG TABLET PO ×3 (08:51→20:52)
[2024-01-03] MEDS: Magnesium Hydrox/Alum Hydrox 30 ML ORAL.SUSP PO (10:40)
[2024-01-03] MEDS: QUEtiapine Fumarate 100 MG TABLET PO (14:31)
--- NOTE | 2024-01-03 15:42 | HO.PSYCHPN ---
Subjective Subjective Date of Service: 01/03/24 Reason For Visit: DEPRESSION si Subjective Notes: Conditional Voluntary Healthcare Proxy: No Guardianship: No Medical Problems Affecting Mental Status: No Interim History: Reports Ambien to be effective, however continues to find difficulty in an active milieu at night. Discussed use of [employer], working with [facility], concern about her 3 month recertification requirements. Again declines milieu activities Reports medications are appropriate Expresses angst, frustration with current symptoms, situation. Continues with SI, HI-discussed some problem solving. Medication Compliance: Yes Side effects from medications: No Attending Groups: No Review of Systems Acute medical concerns: No Medical Review of Systems: unchanged Review of Systems Review of Systems Yes all other systems are reviewed and are negative Mental Status Exam Mental Status Exam Patient Appearance: Fatigued and Appropriate Patient Orientation: Person, Place and Situation Level of Consciousness: Alert Patient Behavior: Appropriate, Talkative, Cooperative, Anxious, Distractible and Good Eye Contact Mood Description: Anxious, Labile, Apprehensive and Expansive Affect Description: Labile and Expansive Patient Cognition Impaired: No Ability to Follow Directions: Good Speech Pattern: Spontaneous Speech Memory Description: Episodic Impaired Hallucinations: None Delusions: Grandiose and Present Perceptual Disturbances: Derealization Thought Process: Racing, Distracted and Goal Oriented Thought Content: positive for Flight of Ideas, positive for Circumstantial, positive for Goal Oriented, positive for Suicidal Ideation and positive for Homicidal Ideation Depressive Symptoms: Increased Anxiety, Insomnia, Difficulty Sleeping and Thoughts of /Suicide Abnormal Motor Activity Signs and Symptoms: Hyperactivity Judgement: Fair Diagnostics Vital Signs (24Hr): Vital Signs - 24 hr 01/02/24 20:00 01/02/24 20:14 01/02/24 20:15 Temperature 97.9 F Pulse Rate 65 Respiratory Rate 18 Blood Pressure 120/76 120/76 120/76 Pulse Oximetry 97 Oxygen Delivery Method Room Air 01/03/24 08:00 Temperature 97.5 F Pulse Rate 57 Respiratory Rate 16 Blood Pressure 134/80 Pulse Oximetry 95 Oxygen Delivery Method Room Air BMI result Body Mass Index 28.7 Labs 12/26/23 19:36 12/28/23 07:07 Medications Medications Current Medications Acetaminophen (Acetaminophen 325 Mg Tablet) 650 mg PO Q6H PRN PRN Reason: Headache/Pain Mild Scale (1-3) Last Admin: 01/03/24 04:52 Dose: 650 mg [place] Hydroxide/Mg Hydroxide (Magnesium Hydrox/Alum Hydrox 30 Ml Oral.Susp) 30 ml PO Q6H PRN PRN Reason: Heartburn/Nausea Last Admin: 01/03/24 10:40 Dose: 30 ml Amlodipine Besylate (Amlodipine Besylate 10 Mg Tablet) 10 mg PO DAILY [facility]; Protocol Last Admin: 01/03/24 08:50 Dose: 10 mg Benzocaine (Throat Lozenge, Medicated Lozenge) 1 lozenge MUCOUS MEM Q2H PRN PRN Reason: Sore Throat Last Admin: 01/03/24 14:32 Dose: 1 lozenge Clonidine HCl (Clonidine Hcl 0.1 Mg Tablet) 0.1 mg PO BID [facility]; Protocol Last Admin: 01/03/24 08:50 Dose: 0.1 mg Hydralazine HCl (Hydralazine Hcl 10 Mg Tablet) 10 mg PO TID [facility]; Protocol Last Admin: 01/03/24 14:31 Dose: 10 mg Hydroxyzine HCl (Hydroxyzine Hcl 25 Mg Tablet) 25 mg PO Q6H PRN PRN Reason: Anxiety Last Admin: 12/31/23 06:56 Dose: 25 mg Magnesium Hydroxide (Milk Of Magnesia 30 Ml Oral.Susp) 30 ml PO DAILY PRN PRN Reason: Constipation Metoprolol Succinate (Metoprolol Succinate Er 50 Mg Tab.Er.24h) 50 mg PO DAILY [facility]; Protocol Last Admin: 01/03/24 08:51 Dose: 50 mg Nicotine (Nicotine 21 Mg Patch.Td24) 21 mg TRANSDERMA DAILY PRN PRN Reason: smoking cessation Nicotine Polacrilex (Nicotine Polacrilex 2 Mg Gum) 4 mg BUCCAL Q2H PRN PRN Reason: Nicotine Cravings Olanzapine (Olanzapine 5 Mg Tablet) 5 mg PO QID PRN PRN Reason: agitation Last Admin: 01/03/24 08:51 Dose: 5 mg Quetiapine Fumarate (Quetiapine Fumarate 100 Mg Tablet) 100 mg PO DAILY@1330 [facility] Last Admin: 01/03/24 14:31 Dose: 100 mg Quetiapine Fumarate (Quetiapine Fumarate 400 Mg Tablet) 400 mg PO BEDTIME [facility] Last Admin: 01/02/24 20:14 Dose: 400 mg Spironolactone (Spironolactone 25 Mg Tablet) 12.5 mg PO DAILY [facility]; Protocol Last Admin: 01/03/24 08:51 Dose: 12.5 mg Trazodone HCl (Trazodone Hcl 50 Mg Tablet) 50 mg PO BEDTIME MRX1 PRN PRN Reason: Insomnia Last Admin: 01/03/24 01:03 Dose: 50 mg Zolpidem Tartrate (Zolpidem Tartrate 5 Mg Tablet) 10 mg PO BEDTIME [facility] Last Admin: 01/02/24 20:13 Dose: 10 mg Allergies Allergies Allergy/AdvReac Type Severity Reaction Status Date / Time [place] And Derivatives Allergy Severe Hives Verified 12/26/23 18:53 strawberry Allergy Severe Hives Verified 12/26/23 18:53 Assessment & Plan Assessment & Plan (1) Bipolar I, most recent episode mixed, severe: Status: Acute Code(s): F31.63 - Bipolar disorder, current episode mixed, severe, without psychotic features Plan Admit to unit VS as per protocol continue regular medications Patient put on 5 min checks and sheets removed from room Encouraged to engage in milieu Dispo planning as per packaging coordinator 12/31/23- Continue current regime Attempt [facility] Pt has requested a transfer to [facility]. 01/01/24 Ambien 5 mg HS No other changes today. 01/03/24 Continue current regime Change checks to 15 minute-team concurs and suggests Encourage milieu engagement Diagnostics 01/05- TSH, B12,Folate, A1C Patient educated on: therapeutic strategies Informed Consent: understands Reason for continued inpatient stay Substantial Risk for: rapid decompensation Time Spent With Patient Time: Total time managing care of this patient today ____ minutes.
[2024-01-03 20:00] VITALS: BP 111/72; PULSE 80; RESP 16; TEMP 36.4; O2SAT 98
[2024-01-03 20:52] VITALS: BP 111/72
[2024-01-03] MEDS: Zolpidem Tartrate 5 MG TABLET 10 MG PO (20:52)
[2024-01-03 20:53] VITALS: BP 111/72
[2024-01-03] MEDS: QUEtiapine Fumarate 400 MG TABLET PO (20:53)
[2024-01-04 08:00] VITALS: BP 110/77; PULSE 72; RESP 16; TEMP 36.4; O2SAT 100
[2024-01-04 08:19] VITALS: BP 110/77; PULSE 72
[2024-01-04] MEDS: hydrALAZINE HCl 10 MG TABLET PO ×3 (08:19→20:22)
[2024-01-04] MEDS: cloNIDine HCL 0.1 MG TABLET PO ×2 (08:19→20:21)
[2024-01-04] MEDS: amLODIPine Besylate 10 MG TABLET PO (08:19)
[2024-01-04] MEDS: Metoprolol Succinate ER 50 MG TAB.ER.24H PO (08:19)
[2024-01-04 08:20] VITALS: BP 110/77
[2024-01-04] MEDS: Spironolactone 25 MG TABLET 12.5 MG PO (08:20)
[2024-01-04] MEDS: Magnesium Hydrox/Alum Hydrox 30 ML ORAL.SUSP PO (09:38)
--- NOTE | 2024-01-04 10:22 | HO.PSYCHPN ---
Subjective Subjective Date of Service: 01/04/24 Reason For Visit: DEPRESSION si Interim History: Met with patient; discussed with team; reviewed chart Irritable, mostly keeping to her room. On approach patient says she has AH to kill herself but says she won't and that she stays in her room to avoid others since they irritate her... Patient rambles about talks about her association with [employer], since she was 5 years old, if anyone says anything she will show them.... Patient does not want any medication changes. Says she is waiting for room on the 3rd for -showered today Mental Status Exam Mental Status Exam Patient Appearance: Appropriate (bald) Patient Orientation: Person, Place and Situation Level of Consciousness: Awake and Alert Patient Behavior: Talkative, Cooperative, Anxious and Good Eye Contact Behavior Comments: irritable edge Mood Description: Anxious, Angry and Expansive Affect Description: Angry Patient Cognition Impaired: No Ability to Follow Directions: Fair Speech Pattern: Spontaneous Speech (a little pressured) Memory Description: Episodic Impaired Hallucinations: None Delusions: Grandiose and Present Perceptual Disturbances: Derealization Thought Process: Racing, Distracted and Goal Oriented Thought Content: positive for Circumstantial, positive for Goal Oriented, positive for Suicidal Ideation and positive for Homicidal Ideation Judgement and Insight: Impaired Diagnostics Vital Signs (24Hr): Vital Signs - 24 hr 01/03/24 20:00 01/03/24 20:52 01/03/24 20:53 Temperature 97.5 F Pulse Rate 80 Respiratory Rate 16 Blood Pressure 111/72 111/72 111/72 Pulse Oximetry 98 Oxygen Delivery Method Room Air 01/04/24 08:00 01/04/24 08:19 01/04/24 08:19 Temperature 97.5 F Pulse Rate 72 Respiratory Rate 16 Blood Pressure 110/77 110/77 110/77 Pulse Oximetry 100 Oxygen Delivery Method Room Air 01/04/24 08:19 01/04/24 08:19 01/04/24 08:20 Temperature Pulse Rate 72 Respiratory Rate Blood Pressure 110/77 110/77 110/77 Pulse Oximetry Oxygen Delivery Method BMI result Body Mass Index 28.7 Labs 12/26/23 19:36 12/28/23 07:07 Medications Medications Current Medications Acetaminophen (Acetaminophen 325 Mg Tablet) 650 mg PO Q6H PRN PRN Reason: Headache/Pain Mild Scale (1-3) Last Admin: 01/03/24 04:52 Dose: 650 mg Al Hydroxide/Mg Hydroxide (Magnesium Hydrox/Alum Hydrox 30 Ml Oral.Susp) 30 ml PO Q6H PRN PRN Reason: Heartburn/Nausea Last Admin: 01/04/24 09:38 Dose: 30 ml Amlodipine Besylate (Amlodipine Besylate 10 Mg Tablet) 10 mg PO DAILY [facility]; Protocol Last Admin: 01/04/24 08:19 Dose: 10 mg Benzocaine (Throat Lozenge, Medicated Lozenge) 1 lozenge MUCOUS MEM Q2H PRN PRN Reason: Sore Throat Last Admin: 01/03/24 14:32 Dose: 1 lozenge Clonidine HCl (Clonidine Hcl 0.1 Mg Tablet) 0.1 mg PO BID [facility]; Protocol Last Admin: 01/04/24 08:19 Dose: 0.1 mg Hydralazine HCl (Hydralazine Hcl 10 Mg Tablet) 10 mg PO TID [facility]; Protocol Last Admin: 01/04/24 08:19 Dose: 10 mg Hydroxyzine HCl (Hydroxyzine Hcl 25 Mg Tablet) 25 mg PO Q6H PRN PRN Reason: Anxiety Last Admin: 12/31/23 06:56 Dose: 25 mg Magnesium Hydroxide (Milk Of Magnesia 30 Ml Oral.Susp) 30 ml PO DAILY PRN PRN Reason: Constipation Metoprolol Succinate (Metoprolol Succinate Er 50 Mg Tab.Er.24h) 50 mg PO DAILY [facility]; Protocol Last Admin: 01/04/24 08:19 Dose: 50 mg Nicotine (Nicotine 21 Mg Patch.Td24) 21 mg TRANSDERMA DAILY PRN PRN Reason: smoking cessation Nicotine Polacrilex (Nicotine Polacrilex 2 Mg Gum) 4 mg BUCCAL Q2H PRN PRN Reason: Nicotine Cravings Olanzapine (Olanzapine 5 Mg Tablet) 5 mg PO QID PRN PRN Reason: agitation Last Admin: 01/03/24 08:51 Dose: 5 mg Quetiapine Fumarate (Quetiapine Fumarate 100 Mg Tablet) 100 mg PO DAILY@1330 [facility] Last Admin: 01/03/24 14:31 Dose: 100 mg Quetiapine Fumarate (Quetiapine Fumarate 400 Mg Tablet) 400 mg PO BEDTIME [facility] Last Admin: 01/03/24 20:53 Dose: 400 mg Spironolactone (Spironolactone 25 Mg Tablet) 12.5 mg PO DAILY [facility]; Protocol Last Admin: 01/04/24 08:20 Dose: 12.5 mg Trazodone HCl (Trazodone Hcl 50 Mg Tablet) 50 mg PO BEDTIME MRX1 PRN PRN Reason: Insomnia Last Admin: 01/03/24 01:03 Dose: 50 mg Zolpidem Tartrate (Zolpidem Tartrate 5 Mg Tablet) 10 mg PO BEDTIME [facility] Last Admin: 01/03/24 20:52 Dose: 10 mg Allergies Allergies Allergy/AdvReac Type Severity Reaction Status Date / Time [place] And Derivatives Allergy Severe Hives Verified 12/26/23 18:53 strawberry Allergy Severe Hives Verified 12/26/23 18:53 Assessment & Plan Assessment & Plan (1) Bipolar I, most recent episode mixed, severe: Status: Acute Code(s): F31.63 - Bipolar disorder, current episode mixed, severe, without psychotic features Plan Admit to unit VS as per protocol continue regular medications Patient put on 5 min checks and sheets removed from room Encouraged to engage in milieu Dispo planning as per wastewater treatment engineer 12/31/23- Continue current regime Attempt alliance Pt has requested a transfer to [facility]. 01/01/24 Ambien 5 mg HS No other changes today. 01/03/24 Continue current regime Change checks to 15 minute-team concurs and suggests Encourage milieu engagement Diagnostics 01/05- TSH, B12,Folate, A1C 01/03 Irritable, mostly keeping to her room. On approach patient says she has AH to kill herself but says she won't and that she stays in her room to avoid others since they irritate her... Patient rambles about talks about her association with Jewish, since she was 5 years old, if anyone says anything she will show them.... Patient does not want any medication changes. Says she is waiting for room on the 3rd for -showered today Patient educated on: diagnosis and medication risk/benefits Informed Consent: does not understand and further education needed Reason for continued inpatient stay Substantial Risk for: rapid decompensation Time Spent With Patient Time: Total time managing care of this patient today ____ minutes.
[2024-01-04] MEDS: Famotidine 20 MG TABLET PO (10:58)
[2024-01-04 14:19] VITALS: BP 113/79
[2024-01-04] MEDS: QUEtiapine Fumarate 100 MG TABLET PO (14:19)
[2024-01-04 20:00] VITALS: BP 114/72; PULSE 68; RESP 20; TEMP 36.4; O2SAT 97
[2024-01-04] MEDS: QUEtiapine Fumarate 400 MG TABLET PO (20:21)
[2024-01-04] MEDS: Zolpidem Tartrate 5 MG TABLET 10 MG PO (20:21)
[2024-01-05 08:00] VITALS: BP 144/89; PULSE 69; RESP 18; TEMP 36.6; O2SAT 98
[2024-01-05 08:54] VITALS: BP 144/89
[2024-01-05] MEDS: amLODIPine Besylate 10 MG TABLET PO (08:54)
[2024-01-05] MEDS: Throat Lozenge, Medicated LOZENGE 1 LOZENGE MUCOUS MEM ×2 (08:54→12:32)
[2024-01-05 08:55] VITALS: BP 144/89; PULSE 69
[2024-01-05] MEDS: hydrALAZINE HCl 10 MG TABLET PO ×3 (08:55→20:45)
[2024-01-05] MEDS: Spironolactone 25 MG TABLET 12.5 MG PO (08:55)
[2024-01-05] MEDS: cloNIDine HCL 0.1 MG TABLET PO ×2 (08:55→20:46)
[2024-01-05] MEDS: Metoprolol Succinate ER 50 MG TAB.ER.24H PO (08:55)
--- NOTE | 2024-01-05 10:15 | HO.PSYCHPN ---
Subjective Subjective Date of Service: 01/05/24 Reason For Visit: DEPRESSION si Interim History: Met with patient; discussed with team Patient remains irritable. She told the nurse that when she next saw this life insurance underwriter she was going to curse this life insurance underwriter in yiddish to make life insurance underwriter feel like nothing; however on approach though irritable patient did not curse life insurance underwriter. She said she is very depressed and very suicidal... She also said she is very angry. She is upset with her meal and upset that it is noisy on the unit. She also says the staff is not very nice and not polite with her. She reiterates she just waiting for a bed to open up on [facility]. Mental Status Exam Mental Status Exam Patient Appearance: Appropriate (bald) Patient Orientation: Person, Place and Situation Level of Consciousness: Awake and Alert Patient Behavior: Talkative, Cooperative, Anxious and Good Eye Contact Behavior Comments: irritable edge Mood Description: Anxious and Angry Affect Description: Angry Patient Cognition Impaired: No Ability to Follow Directions: Fair Speech Pattern: Spontaneous Speech (a little pressured) Memory Description: Episodic Impaired Hallucinations: None Delusions: Grandiose and Present Perceptual Disturbances: Derealization Thought Process: Racing, Distracted and Goal Oriented Thought Content: positive for Circumstantial, positive for Goal Oriented, positive for Suicidal Ideation and positive for Homicidal Ideation Judgement and Insight: Impaired Diagnostics Vital Signs (24Hr): Vital Signs - 24 hr 01/04/24 14:19 01/04/24 20:00 01/05/24 08:00 Temperature 97.6 F 97.8 F Pulse Rate 68 69 Respiratory Rate 20 18 Blood Pressure 113/79 114/72 144/89 H Pulse Oximetry 97 98 Oxygen Delivery Method Room Air Room Air 01/05/24 08:54 01/05/24 08:55 01/05/24 08:55 Temperature Pulse Rate Respiratory Rate Blood Pressure 144/89 H 144/89 H 144/89 H Pulse Oximetry Oxygen Delivery Method 01/05/24 08:55 01/05/24 08:55 Temperature Pulse Rate 69 Respiratory Rate Blood Pressure 144/89 H 144/89 H Pulse Oximetry Oxygen Delivery Method BMI result Body Mass Index 28.7 Labs 12/26/23 19:36 12/28/23 07:07 Medications Medications Current Medications Acetaminophen (Acetaminophen 325 Mg Tablet) 650 mg PO Q6H PRN PRN Reason: Headache/Pain Mild Scale (1-3) Last Admin: 01/03/24 04:52 Dose: 650 mg Al Hydroxide/Mg Hydroxide (Magnesium Hydrox/Alum Hydrox 30 Ml Oral.Susp) 30 ml PO Q6H PRN PRN Reason: Heartburn/Nausea Last Admin: 01/04/24 09:38 Dose: 30 ml Amlodipine Besylate (Amlodipine Besylate 10 Mg Tablet) 10 mg PO DAILY [facility]; Protocol Last Admin: 01/05/24 08:54 Dose: 10 mg Benzocaine (Throat Lozenge, Medicated Lozenge) 1 lozenge MUCOUS MEM Q2H PRN PRN Reason: Sore Throat Last Admin: 01/05/24 08:54 Dose: 1 lozenge Clonidine HCl (Clonidine Hcl 0.1 Mg Tablet) 0.1 mg PO BID [facility]; Protocol Last Admin: 01/05/24 08:55 Dose: 0.1 mg Famotidine (Famotidine 20 Mg Tablet) 20 mg PO BID PRN PRN Reason: continued GERD Hydralazine HCl (Hydralazine Hcl 10 Mg Tablet) 10 mg PO TID [facility]; Protocol Last Admin: 01/05/24 08:55 Dose: 10 mg Hydroxyzine HCl (Hydroxyzine Hcl 25 Mg Tablet) 25 mg PO Q6H PRN PRN Reason: Anxiety Last Admin: 12/31/23 06:56 Dose: 25 mg Magnesium Hydroxide (Milk Of Magnesia 30 Ml Oral.Susp) 30 ml PO DAILY PRN PRN Reason: Constipation Metoprolol Succinate (Metoprolol Succinate Er 50 Mg Tab.Er.24h) 50 mg PO DAILY [facility]; Protocol Last Admin: 01/05/24 08:55 Dose: 50 mg Nicotine (Nicotine 21 Mg Patch.Td24) 21 mg TRANSDERMA DAILY PRN PRN Reason: smoking cessation Nicotine Polacrilex (Nicotine Polacrilex 2 Mg Gum) 4 mg BUCCAL Q2H PRN PRN Reason: Nicotine Cravings Olanzapine (Olanzapine 5 Mg Tablet) 5 mg PO QID PRN PRN Reason: agitation Last Admin: 01/03/24 08:51 Dose: 5 mg Quetiapine Fumarate (Quetiapine Fumarate 100 Mg Tablet) 100 mg PO DAILY@1330 [facility] Last Admin: 01/04/24 14:19 Dose: 100 mg Quetiapine Fumarate (Quetiapine Fumarate 400 Mg Tablet) 400 mg PO BEDTIME [facility] Last Admin: 01/04/24 20:21 Dose: 400 mg Spironolactone (Spironolactone 25 Mg Tablet) 12.5 mg PO DAILY [facility]; Protocol Last Admin: 01/05/24 08:55 Dose: 12.5 mg Trazodone HCl (Trazodone Hcl 50 Mg Tablet) 50 mg PO BEDTIME MRX1 PRN PRN Reason: Insomnia Last Admin: 01/03/24 01:03 Dose: 50 mg Zolpidem Tartrate (Zolpidem Tartrate 5 Mg Tablet) 10 mg PO BEDTIME [facility] Last Admin: 01/04/24 20:21 Dose: 10 mg Allergies Allergies Allergy/AdvReac Type Severity Reaction Status Date / Time [place] And Derivatives Allergy Severe Hives Verified 12/26/23 18:53 strawberry Allergy Severe Hives Verified 12/26/23 18:53 Assessment & Plan Assessment & Plan (1) Bipolar I, most recent episode mixed, severe: Status: Acute Code(s): F31.63 - Bipolar disorder, current episode mixed, severe, without psychotic features Plan Admit to unit VS as per protocol continue regular medications Patient put on 5 min checks and sheets removed from room Encouraged to engage in milieu Dispo planning as per nursing coordinator 12/31/23- Continue current regime Attempt alliance Pt has requested a transfer to [facility]. 01/01/24 Ambien 5 mg HS No other changes today. 01/03/24 Continue current regime Change checks to 15 minute-team concurs and suggests Encourage milieu engagement Diagnostics 01/05- TSH, B12,Folate, A1C 01/03 Irritable, mostly keeping to her room. On approach patient says she has AH to kill herself but says she won't and that she stays in her room to avoid others since they irritate her... Patient rambles about talks about her association with [employer], since she was 5 years old, if anyone says anything she will show them.... Patient does not want any medication changes. Says she is waiting for room on the 3rd for -showered today 01/04 remains irritable Patient educated on: diagnosis Informed Consent: understands, does not understand and further education needed Reason for continued inpatient stay Substantial Risk for: med/psych decompensation Time Spent With Patient Time: Total time managing care of this patient today ____ minutes.
[2024-01-05] MEDS: Magnesium Hydrox/Alum Hydrox 30 ML ORAL.SUSP PO (12:44)
[2024-01-05] MEDS: QUEtiapine Fumarate 100 MG TABLET PO (12:44)
[2024-01-05] MEDS: Famotidine 20 MG TABLET PO (12:44)
[2024-01-05] MEDS: Artificial Tears 15 ML DROPS 2 DROP EYE-BOTH (15:03)
[2024-01-05 15:04] VITALS: BP 126/76
[2024-01-05 20:00] VITALS: BP 109/77; PULSE 80; RESP 18
[2024-01-05 20:45] VITALS: BP 109/77
[2024-01-05] MEDS: QUEtiapine Fumarate 400 MG TABLET PO (20:45)
[2024-01-05] MEDS: Zolpidem Tartrate 5 MG TABLET 10 MG PO (20:46)
[2024-01-06] MEDS: traZODone HCL 50 MG TABLET PO ×2 (02:15→20:01)
[2024-01-06 08:00] VITALS: BP 121/89; PULSE 73; RESP 16; TEMP 36.6; O2SAT 98
[2024-01-06] MEDS: amLODIPine Besylate 10 MG TABLET PO (08:13)
[2024-01-06] MEDS: hydrALAZINE HCl 10 MG TABLET PO ×3 (08:14→20:01)
[2024-01-06] MEDS: cloNIDine HCL 0.1 MG TABLET PO ×2 (08:15→20:01)
[2024-01-06] MEDS: Metoprolol Succinate ER 50 MG TAB.ER.24H PO (08:28)
[2024-01-06] MEDS: Throat Lozenge, Medicated LOZENGE 1 LOZENGE MUCOUS MEM (08:28)
[2024-01-06 08:36] LABS: Estimated Average Glucose 123 mg/dL; Hemoglobin A1c % 5.9 % (<6.0)
[2024-01-06 09:08] LABS: Thyroid Stimulating Hormone 0.83 uIU/mL (0.32-4.0)
[2024-01-06] MEDS: Spironolactone 25 MG TABLET 12.5 MG PO (09:28)
[2024-01-06 09:29] LABS: Folate 3.9 ng/mL (> or = 4.0); Vitamin B12 460 pg/mL (200-900)
--- NOTE | 2024-01-06 10:56 | HO.PSYCHPN ---
Subjective Subjective Date of Service: 01/06/24 Reason For Visit: DEPRESSION si Subjective Notes: Conditional Voluntary Healthcare Proxy: No Guardianship: No Medical Problems Affecting Mental Status: No Interim History: Pt reports SI, HI, AH, anger that she has not been transferred to [facility]. Threatening, I will do something bad. Slept six hours. Medication review, pt asks for no changes today. Several dietary concerns regarding lack of kosher choices. Reports nausea/vomiting due to menu errors. Several milieu concerns, noise concerns that she cannot tolerate. Medication Compliance: Yes Side effects from medications: No Attending Groups: No Review of Systems Acute medical concerns: No as noted above Medical Review of Systems: unchanged Review of Systems Gastrointestinal: Reports nausea and Reports vomiting Mental Status Exam Mental Status Exam Patient Appearance: Fatigued Patient Orientation: Person, Place, Time and Situation Level of Consciousness: Alert Patient Behavior: Talkative and Good Eye Contact Mood Description: Depressed and Angry Affect Description: Flat Patient Cognition Impaired: No Ability to Follow Directions: Good Speech Pattern: Spontaneous Speech Memory Description: Intact Hallucinations: Auditory Perceptual Disturbances: Depersonalization and Derealization Thought Process: Rumination Thought Content: positive for Suicidal Ideation and positive for Homicidal Ideation Depressive Symptoms: Increased Irritability, Difficulty Sleeping and Thoughts of /Suicide Abnormal Motor Activity Signs and Symptoms: Agitation and Restlessness Judgement: Fair Diagnostics Vital Signs (24Hr): Vital Signs - 24 hr 01/05/24 15:04 01/05/24 20:00 01/05/24 20:45 Temperature Pulse Rate 80 Respiratory Rate 18 Blood Pressure 126/76 109/77 109/77 Pulse Oximetry Oxygen Delivery Method 01/06/24 08:00 Temperature 98 F Pulse Rate 73 Respiratory Rate 16 Blood Pressure 121/89 Pulse Oximetry 98 Oxygen Delivery Method Room Air BMI result Body Mass Index 28.7 Labs 12/26/23 19:36 12/28/23 07:07 Labs: Laboratory Results - last 48 hr 01/06/24 08:16 Estimat Average Glucose 123 Hemoglobin A1c % 5.9 Vitamin B12 460 Folate 3.9 L TSH 0.83 Medications Medications Current Medications Acetaminophen (Acetaminophen 325 Mg Tablet) 650 mg PO Q6H PRN PRN Reason: Headache/Pain Mild Scale (1-3) Last Admin: 01/03/24 04:52 Dose: 650 mg Al Hydroxide/Mg Hydroxide (Magnesium Hydrox/Alum Hydrox 30 Ml Oral.Susp) 30 ml PO Q6H PRN PRN Reason: Heartburn/Nausea Last Admin: 01/05/24 12:44 Dose: 30 ml Amlodipine Besylate (Amlodipine Besylate 10 Mg Tablet) 10 mg PO DAILY [facility]; Protocol Last Admin: 01/06/24 08:13 Dose: 10 mg Artificial Tears (Artificial Tears 15 Ml Drops) 2 drop EYE-BOTH Q4H PRN PRN Reason: Dry Eyes Last Admin: 01/05/24 15:03 Dose: 2 drop Benzocaine (Throat Lozenge, Medicated Lozenge) 1 lozenge MUCOUS MEM Q2H PRN PRN Reason: Sore Throat Last Admin: 01/06/24 08:28 Dose: 1 lozenge Clonidine HCl (Clonidine Hcl 0.1 Mg Tablet) 0.1 mg PO BID [facility]; Protocol Last Admin: 01/06/24 08:15 Dose: 0.1 mg Famotidine (Famotidine 20 Mg Tablet) 20 mg PO BID PRN PRN Reason: continued GERD Last Admin: 01/05/24 12:44 Dose: 20 mg Hydralazine HCl (Hydralazine Hcl 10 Mg Tablet) 10 mg PO TID [facility]; Protocol Last Admin: 01/06/24 08:14 Dose: 10 mg Hydroxyzine HCl (Hydroxyzine Hcl 25 Mg Tablet) 25 mg PO Q6H PRN PRN Reason: Anxiety Last Admin: 12/31/23 06:56 Dose: 25 mg Magnesium Hydroxide (Milk Of Magnesia 30 Ml Oral.Susp) 30 ml PO DAILY PRN PRN Reason: Constipation Metoprolol Succinate (Metoprolol Succinate Er 50 Mg Tab.Er.24h) 50 mg PO DAILY [facility]; Protocol Last Admin: 01/06/24 08:28 Dose: 50 mg Nicotine (Nicotine 21 Mg Patch.Td24) 21 mg TRANSDERMA DAILY PRN PRN Reason: smoking cessation Nicotine Polacrilex (Nicotine Polacrilex 2 Mg Gum) 4 mg BUCCAL Q2H PRN PRN Reason: Nicotine Cravings Olanzapine (Olanzapine 5 Mg Tablet) 5 mg PO QID PRN PRN Reason: agitation Last Admin: 01/03/24 08:51 Dose: 5 mg Quetiapine Fumarate (Quetiapine Fumarate 100 Mg Tablet) 100 mg PO DAILY@1330 [facility] Last Admin: 01/05/24 12:44 Dose: 100 mg Quetiapine Fumarate (Quetiapine Fumarate 400 Mg Tablet) 400 mg PO BEDTIME [facility] Last Admin: 01/05/24 20:45 Dose: 400 mg Spironolactone (Spironolactone 25 Mg Tablet) 12.5 mg PO DAILY [facility]; Protocol Last Admin: 01/06/24 09:28 Dose: 12.5 mg Trazodone HCl (Trazodone Hcl 50 Mg Tablet) 50 mg PO BEDTIME MRX1 PRN PRN Reason: Insomnia Last Admin: 01/06/24 02:15 Dose: 50 mg Zolpidem Tartrate (Zolpidem Tartrate 5 Mg Tablet) 10 mg PO BEDTIME [facility] Last Admin: 01/05/24 20:46 Dose: 10 mg Allergies Allergies Allergy/AdvReac Type Severity Reaction Status Date / Time [place] And Derivatives Allergy Severe Hives Verified 12/26/23 18:53 strawberry Allergy Severe Hives Verified 12/26/23 18:53 Assessment & Plan Assessment & Plan (1) Bipolar I, most recent episode mixed, severe: Status: Acute Code(s): F31.63 - Bipolar disorder, current episode mixed, severe, without psychotic features Plan Admit to unit VS as per protocol continue regular medications Patient put on 5 min checks and sheets removed from room Encouraged to engage in milieu Dispo planning as per internet marketing coordinator 12/31/23- Continue current regime Attempt alliance Pt has requested a transfer to [facility]. 01/01/24 Ambien 5 mg HS No other changes today. 01/03/24 Continue current regime Change checks to 15 minute-team concurs and suggests Encourage milieu engagement Diagnostics 01/05- TSH, B12,Folate, A1C 01/03 Irritable, mostly keeping to her room. On approach patient says she has AH to kill herself but says she won't and that she stays in her room to avoid others since they irritate her... Patient rambles about talks about her association with [employer], since she was 5 years old, if anyone says anything she will show them.... Patient does not want any medication changes. Says she is waiting for room on the 3rd for -showered today 01/04 remains irritable 01/05 Continue current plan. Informed Consent: understands Reason for continued inpatient stay Substantial Risk for: rapid decompensation Time Spent With Patient Time: Total time managing care of this patient today ____ minutes.
[2024-01-06] MEDS: Magnesium Hydrox/Alum Hydrox 30 ML ORAL.SUSP PO (14:23)
[2024-01-06] MEDS: QUEtiapine Fumarate 100 MG TABLET PO (14:23)
[2024-01-06 20:00] VITALS: BP 120/60; PULSE 89; TEMP 36.8; O2SAT 98
[2024-01-06] MEDS: Zolpidem Tartrate 5 MG TABLET 10 MG PO (20:01)
[2024-01-06] MEDS: QUEtiapine Fumarate 400 MG TABLET PO (20:01)
[2024-01-07] MEDS: traZODone HCL 50 MG TABLET PO (01:50)
[2024-01-07] MEDS: Acetaminophen 325 MG TABLET 650 MG PO (05:37)
[2024-01-07 08:00] VITALS: BP 122/80; PULSE 84; RESP 18; TEMP 36.3; O2SAT 99
[2024-01-07 10:41] VITALS: BP 122/80
[2024-01-07] MEDS: hydrALAZINE HCl 10 MG TABLET PO ×3 (10:41→20:15)
[2024-01-07] MEDS: cloNIDine HCL 0.1 MG TABLET PO ×2 (10:41→20:15)
[2024-01-07] MEDS: Spironolactone 25 MG TABLET 12.5 MG PO (10:41)
[2024-01-07] MEDS: amLODIPine Besylate 10 MG TABLET PO (10:41)
[2024-01-07 10:42] VITALS: BP 122/80; PULSE 84
[2024-01-07] MEDS: Metoprolol Succinate ER 50 MG TAB.ER.24H PO (10:42)
--- NOTE | 2024-01-07 13:33 | P.PNPSI_ITS ---
Subjective Subjective Date of Service: 01/07/24 Reason For Visit: DEPRESSION si Subjective Notes: Conditional Voluntary Healthcare Proxy: No Guardianship: No Medical Problems Affecting Mental Status: No Interim History: Continues to be isolative in her room. Discussed housing options-she does not believe there are any-willing to look at the options. Encouraged milieu, groups, connections with her peers. Agrees to increase Trazodone for assistance with her sleep and Gabapentin for anxiety Medication Compliance: Yes Side effects from medications: No Attending Groups: No Review of Systems Acute medical concerns: No Medical Review of Systems: unchanged Review of Systems Review of Systems Yes all other systems are reviewed and are negative Mental Status Exam Mental Status Exam Patient Appearance: Fatigued Patient Orientation: Person, Place, Time and Situation Level of Consciousness: Alert Patient Behavior: Talkative and Good Eye Contact Mood Description: Depressed and Angry Affect Description: Flat Patient Cognition Impaired: No Ability to Follow Directions: Good Speech Pattern: Spontaneous Speech Memory Description: Intact Hallucinations: Auditory Perceptual Disturbances: Depersonalization and Derealization Thought Process: Rumination Thought Content: positive for Suicidal Ideation and positive for Homicidal Ideation Depressive Symptoms: Increased Irritability, Difficulty Sleeping and Thoughts of /Suicide Abnormal Motor Activity Signs and Symptoms: Agitation and Restlessness Judgement: Fair Diagnostics Vital Signs (24Hr): Vital Signs - 24 hr 01/06/24 20:00 01/07/24 08:00 01/07/24 10:41 Temperature 98.2 F 97.3 F Pulse Rate 89 84 Respiratory Rate 18 Blood Pressure 120/60 122/80 122/80 Pulse Oximetry 98 99 Oxygen Delivery Method Room Air Room Air 01/07/24 10:41 01/07/24 10:41 01/07/24 10:42 Temperature Pulse Rate 84 Respiratory Rate Blood Pressure 122/80 122/80 122/80 Pulse Oximetry Oxygen Delivery Method BMI result Body Mass Index 28.7 Labs 12/26/23 19:36 12/28/23 07:07 Labs: Laboratory Results - last 48 hr 01/06/24 08:16 Estimat Average Glucose 123 Hemoglobin A1c % 5.9 Vitamin B12 460 Folate 3.9 L TSH 0.83 Medications Medications Current Medications Acetaminophen (Acetaminophen 325 Mg Tablet) 650 mg PO Q6H PRN PRN Reason: Headache/Pain Mild Scale (1-3) Last Admin: 01/07/24 05:37 Dose: 650 mg Al Hydroxide/Mg Hydroxide (Magnesium Hydrox/Alum Hydrox 30 Ml Oral.Susp) 30 ml PO Q6H PRN PRN Reason: Heartburn/Nausea Last Admin: 01/06/24 14:23 Dose: 30 ml Amlodipine Besylate (Amlodipine Besylate 10 Mg Tablet) 10 mg PO DAILY [facility]; Protocol Last Admin: 01/07/24 10:41 Dose: 10 mg Artificial Tears (Artificial Tears 15 Ml Drops) 2 drop EYE-BOTH Q4H PRN PRN Reason: Dry Eyes Last Admin: 01/05/24 15:03 Dose: 2 drop Benzocaine (Throat Lozenge, Medicated Lozenge) 1 lozenge MUCOUS MEM Q2H PRN PRN Reason: Sore Throat Last Admin: 01/06/24 08:28 Dose: 1 lozenge Bismuth Subsalicylate (Bismuth Subsalicylate Liquid 524 Mg/30 Ml Oral.Susp) 524 mg PO QID PRN PRN Reason: Nausea and Vomiting Clonidine HCl (Clonidine Hcl 0.1 Mg Tablet) 0.1 mg PO BID [facility]; Protocol Last Admin: 01/07/24 10:41 Dose: 0.1 mg Famotidine (Famotidine 20 Mg Tablet) 20 mg PO BID PRN PRN Reason: continued GERD Last Admin: 01/05/24 12:44 Dose: 20 mg Hydralazine HCl (Hydralazine Hcl 10 Mg Tablet) 10 mg PO TID [facility]; Protocol Last Admin: 01/07/24 10:41 Dose: 10 mg Hydroxyzine HCl (Hydroxyzine Hcl 25 Mg Tablet) 25 mg PO Q6H PRN PRN Reason: Anxiety Last Admin: 12/31/23 06:56 Dose: 25 mg Magnesium Hydroxide (Milk Of Magnesia 30 Ml Oral.Susp) 30 ml PO DAILY PRN PRN Reason: Constipation Metoprolol Succinate (Metoprolol Succinate Er 50 Mg Tab.Er.24h) 50 mg PO DAILY [facility]; Protocol Last Admin: 01/07/24 10:42 Dose: 50 mg Nicotine (Nicotine 21 Mg Patch.Td24) 21 mg TRANSDERMA DAILY PRN PRN Reason: smoking cessation Nicotine Polacrilex (Nicotine Polacrilex 2 Mg Gum) 4 mg BUCCAL Q2H PRN PRN Reason: Nicotine Cravings Olanzapine (Olanzapine 5 Mg Tablet) 5 mg PO QID PRN PRN Reason: agitation Last Admin: 01/03/24 08:51 Dose: 5 mg Quetiapine Fumarate (Quetiapine Fumarate 100 Mg Tablet) 100 mg PO DAILY@1330 [facility] Last Admin: 01/06/24 14:23 Dose: 100 mg Quetiapine Fumarate (Quetiapine Fumarate 400 Mg Tablet) 400 mg PO BEDTIME [facility] Last Admin: 01/06/24 20:01 Dose: 400 mg Spironolactone (Spironolactone 25 Mg Tablet) 12.5 mg PO DAILY [facility]; Protocol Last Admin: 01/07/24 10:41 Dose: 12.5 mg Trazodone HCl (Trazodone Hcl 50 Mg Tablet) 50 mg PO BEDTIME MRX1 PRN PRN Reason: Insomnia Last Admin: 01/07/24 01:50 Dose: 50 mg Zolpidem Tartrate (Zolpidem Tartrate 5 Mg Tablet) 10 mg PO BEDTIME [facility] Last Admin: 01/06/24 20:01 Dose: 10 mg Allergies Allergies Allergy/AdvReac Type Severity Reaction Status Date / Time [place] And Derivatives Allergy Severe Hives Verified 12/26/23 18:53 strawberry Allergy Severe Hives Verified 12/26/23 18:53 Assessment & Plan Assessment & Plan (1) Bipolar I, most recent episode mixed, severe: Status: Acute Code(s): F31.63 - Bipolar disorder, current episode mixed, severe, without psychotic features Plan Admit to unit VS as per protocol continue regular medications Patient put on 5 min checks and sheets removed from room Encouraged to engage in milieu Dispo planning as per animal treatment investigator 12/31/23- Continue current regime Attempt alliance Pt has requested a transfer to [facility]. 01/01/24 Ambien 5 mg HS No other changes today. 01/03/24 Continue current regime Change checks to 15 minute-team concurs and suggests Encourage milieu engagement Diagnostics 01/05- TSH, B12,Folate, A1C 01/03 Irritable, mostly keeping to her room. On approach patient says she has AH to kill herself but says she won't and that she stays in her room to avoid others since they irritate her... Patient rambles about talks about her association with [employer], since she was 5 years old, if anyone says anything she will show them.... Patient does not want any medication changes. Says she is waiting for room on the 3rd for -showered today 4/21 remains irritable 01/05 Continue current plan. 01/07/24: Increase Trazodone for assistance with sleep Gabapentin for anxiety Informed Consent: understands Reason for continued inpatient stay Substantial Risk for: rapid decompensation Time Spent With Patient Time: Total time managing care of this patient today ____ minutes.
[2024-01-07 14:45] VITALS: BP 106/74; PULSE 96; RESP 18; O2SAT 98
[2024-01-07 14:46] VITALS: BP 106/74
[2024-01-07] MEDS: QUEtiapine Fumarate 100 MG TABLET PO (14:46)
[2024-01-07] MEDS: hydrOXYzine HCL 25 MG TABLET PO (14:52)
[2024-01-07] MEDS: Bismuth Subsalicylate Liquid 524 MG/30 ML ORAL.SUSP PO (14:52)
[2024-01-07] MEDS: OLANZapine 5 MG TABLET PO (14:52)
--- NOTE | 2024-01-07 15:00 | MHC.CLN ---
RE: CONSULT PT REQUESTING [employer] PT REPORTS SHE IS A [facility] AWARE PT TO RECEIVE PRE-PACKAGED FROZEN [employer] MEALS PER HER REQUEST
[2024-01-07 20:00] VITALS: BP 94/54; PULSE 76; TEMP 36.4; O2SAT 97
[2024-01-07] MEDS: QUEtiapine Fumarate 400 MG TABLET PO (20:14)
[2024-01-07] MEDS: Zolpidem Tartrate 5 MG TABLET 10 MG PO (20:15)
[2024-01-07] MEDS: traZODone HCL 100 MG TABLET PO (20:17)
[2024-01-08 08:00] VITALS: BP 144/88; PULSE 88; RESP 15; TEMP 36.6; O2SAT 98
[2024-01-08] MEDS: hydrALAZINE HCl 10 MG TABLET PO ×3 (09:51→19:47)
[2024-01-08] MEDS: amLODIPine Besylate 10 MG TABLET PO (09:51)
[2024-01-08] MEDS: hydrOXYzine HCL 25 MG TABLET PO (09:51)
[2024-01-08] MEDS: Throat Lozenge, Medicated LOZENGE 1 LOZENGE MUCOUS MEM ×2 (09:52→13:16)
[2024-01-08] MEDS: Spironolactone 25 MG TABLET 12.5 MG PO (09:52)
[2024-01-08] MEDS: Metoprolol Succinate ER 50 MG TAB.ER.24H PO (09:52)
[2024-01-08] MEDS: cloNIDine HCL 0.1 MG TABLET PO ×2 (09:52→19:47)
[2024-01-08] MEDS: Acetaminophen 325 MG TABLET 650 MG PO (09:57)
[2024-01-08] MEDS: Bismuth Subsalicylate Liquid 524 MG/30 ML ORAL.SUSP PO ×2 (09:58→19:47)
[2024-01-08] MEDS: QUEtiapine Fumarate 100 MG TABLET PO (13:15)
--- NOTE | 2024-01-08 15:49 | P.PNPSI_ITS ---
Subjective Subjective Date of Service: 01/08/24 Reason For Visit: DEPRESSION si Subjective Notes: Conditional Voluntary Healthcare Proxy: No Guardianship: No Medical Problems Affecting Mental Status: No Interim History: Review of lack of treatment participation and need for discharge. Pt will attend groups beginning today. Pt has a [facility] community health worker, Emiliano, who team will ask to come in to help her with housing choices. Pt identifies [place], [facility] and [place] as questionable options for herself. She has a psychiatrist/therapist with [facility] and community health worker to connect her to her out patient environment. Medication Compliance: Yes Side effects from medications: No Attending Groups: Yes Review of Systems Acute medical concerns: No Medical Review of Systems: unchanged Review of Systems Review of Systems Yes all other systems are reviewed and are negative Mental Status Exam Mental Status Exam Patient Appearance: Fatigued Patient Orientation: Person, Place, Time and Situation Level of Consciousness: Alert Patient Behavior: Talkative and Good Eye Contact Mood Description: Depressed and Angry Affect Description: Flat Patient Cognition Impaired: No Ability to Follow Directions: Good Speech Pattern: Spontaneous Speech Memory Description: Intact Hallucinations: Auditory Perceptual Disturbances: Depersonalization and Derealization Thought Process: Rumination Thought Content: positive for Suicidal Ideation and positive for Homicidal Ideation Depressive Symptoms: Increased Irritability, Difficulty Sleeping and Thoughts of /Suicide Abnormal Motor Activity Signs and Symptoms: Agitation and Restlessness Judgement: Fair Diagnostics Vital Signs (24Hr): Vital Signs - 24 hr 01/07/24 20:00 01/08/24 08:00 Temperature 97.6 F 97.8 F Pulse Rate 76 88 Respiratory Rate 15 Blood Pressure 94/54 L 144/88 H Pulse Oximetry 97 98 Oxygen Delivery Method Room Air Room Air BMI result Body Mass Index 28.7 Labs 12/26/23 19:36 12/28/23 07:07 Medications Medications Current Medications Acetaminophen (Acetaminophen 325 Mg Tablet) 650 mg PO Q6H PRN PRN Reason: Headache/Pain Mild Scale (1-3) Last Admin: 01/08/24 09:57 Dose: 650 mg Al Hydroxide/Mg Hydroxide (Magnesium Hydrox/Alum Hydrox 30 Ml Oral.Susp) 30 ml PO Q6H PRN PRN Reason: Heartburn/Nausea Last Admin: 01/06/24 14:23 Dose: 30 ml Amlodipine Besylate (Amlodipine Besylate 10 Mg Tablet) 10 mg PO DAILY [facility]; Protocol Last Admin: 01/08/24 09:51 Dose: 10 mg Artificial Tears (Artificial Tears 15 Ml Drops) 2 drop EYE-BOTH Q4H PRN PRN Reason: Dry Eyes Last Admin: 01/05/24 15:03 Dose: 2 drop Benzocaine (Throat Lozenge, Medicated Lozenge) 1 lozenge MUCOUS MEM Q2H PRN PRN Reason: Sore Throat Last Admin: 01/08/24 13:16 Dose: 1 lozenge Bismuth Subsalicylate (Bismuth Subsalicylate Liquid 524 Mg/30 Ml Oral.Susp) 524 mg PO QID PRN PRN Reason: Nausea and Vomiting Last Admin: 01/08/24 09:58 Dose: 524 mg Clonidine HCl (Clonidine Hcl 0.1 Mg Tablet) 0.1 mg PO BID [facility]; Protocol Last Admin: 01/08/24 09:52 Dose: 0.1 mg Famotidine (Famotidine 20 Mg Tablet) 20 mg PO BID PRN PRN Reason: continued GERD Last Admin: 01/05/24 12:44 Dose: 20 mg Gabapentin (Gabapentin 300 Mg Capsule) 300 mg PO TID PRN PRN Reason: anxiety Hydralazine HCl (Hydralazine Hcl 10 Mg Tablet) 10 mg PO TID [facility]; Protocol Last Admin: 01/08/24 14:00 Dose: 10 mg Hydroxyzine HCl (Hydroxyzine Hcl 25 Mg Tablet) 25 mg PO Q6H PRN PRN Reason: Anxiety Last Admin: 01/08/24 09:51 Dose: 25 mg Magnesium Hydroxide (Milk Of Magnesia 30 Ml Oral.Susp) 30 ml PO DAILY PRN PRN Reason: Constipation Metoprolol Succinate (Metoprolol Succinate Er 50 Mg Tab.Er.24h) 50 mg PO DAILY [facility]; Protocol Last Admin: 01/08/24 09:52 Dose: 50 mg Nicotine (Nicotine 21 Mg Patch.Td24) 21 mg TRANSDERMA DAILY PRN PRN Reason: smoking cessation Nicotine Polacrilex (Nicotine Polacrilex 2 Mg Gum) 4 mg BUCCAL Q2H PRN PRN Reason: Nicotine Cravings Olanzapine (Olanzapine 5 Mg Tablet) 5 mg PO QID PRN PRN Reason: agitation, anxiety Quetiapine Fumarate (Quetiapine Fumarate 100 Mg Tablet) 100 mg PO DAILY@1330 [facility] Last Admin: 01/08/24 13:15 Dose: 100 mg Quetiapine Fumarate (Quetiapine Fumarate 400 Mg Tablet) 400 mg PO BEDTIME [facility] Last Admin: 01/07/24 20:14 Dose: 400 mg Spironolactone (Spironolactone 25 Mg Tablet) 12.5 mg PO DAILY [facility]; Protocol Last Admin: 01/08/24 09:52 Dose: 12.5 mg Trazodone HCl (Trazodone Hcl 100 Mg Tablet) 100 mg PO BEDTIME MRX1 PRN PRN Reason: Insomnia Last Admin: 01/07/24 20:17 Dose: 100 mg Zolpidem Tartrate (Zolpidem Tartrate 5 Mg Tablet) 10 mg PO BEDTIME [facility] Last Admin: 01/07/24 20:15 Dose: 10 mg Allergies Allergies Allergy/AdvReac Type Severity Reaction Status Date / Time [place] And Derivatives Allergy Severe Hives Verified 12/26/23 18:53 strawberry Allergy Severe Hives Verified 12/26/23 18:53 Assessment & Plan Assessment & Plan (1) Bipolar I, most recent episode mixed, severe: Status: Acute Code(s): F31.63 - Bipolar disorder, current episode mixed, severe, without psychotic features Plan Admit to unit VS as per protocol continue regular medications Patient put on 5 min checks and sheets removed from room Encouraged to engage in milieu Dispo planning as per marketing operations coordinator 12/31/23- Continue current regime Attempt alliance Pt has requested a transfer to [facility]. 01/01/24 Ambien 5 mg HS No other changes today. 01/03/24 Continue current regime Change checks to 15 minute-team concurs and suggests Encourage milieu engagement Diagnostics 01/05- TSH, B12,Folate, A1C 01/03 Irritable, mostly keeping to her room. On approach patient says she has AH to kill herself but says she won't and that she stays in her room to avoid others since they irritate her... Patient rambles about talks about her association with [employer], since she was 5 years old, if anyone says anything she will show them.... Patient does not want any medication changes. Says she is waiting for room on the 3rd for -showered today 01/04 remains irritable 01/05 Continue current plan. 01/07/25: Discharge tentative for 01/10. Team has asked [facility] to come in for assistance in re-aligning pt with the community. Informed Consent: understands Reason for continued inpatient stay Substantial Risk for: rapid decompensation Time Spent With Patient Time: Total time managing care of this patient today ____ minutes.
[2024-01-08] MEDS: traZODone HCL 100 MG TABLET PO (19:47)
[2024-01-08] MEDS: Zolpidem Tartrate 5 MG TABLET 10 MG PO (19:47)
[2024-01-08] MEDS: QUEtiapine Fumarate 400 MG TABLET PO (19:48)
[2024-01-08 20:00] VITALS: BP 118/63; PULSE 80; RESP 16; TEMP 37.2; O2SAT 97
[2024-01-09] MEDS: Famotidine 20 MG TABLET PO ×2 (00:38→20:18)
[2024-01-09] MEDS: traZODone HCL 100 MG TABLET PO ×2 (00:38→20:21)
--- NOTE | 2024-01-09 01:00 | PC.NURSE ---
PT REPORTS VOMITING A MODERATE AMOUNT OF UNDIGESTED FOOD. PT FLUSHED TOILET WITHOUT SHOWING RN.
[2024-01-09 07:45] VITALS: BP 117/84; PULSE 86; RESP 16; TEMP 36.4; O2SAT 96
[2024-01-09 08:39] VITALS: BP 117/84
[2024-01-09] MEDS: hydrALAZINE HCl 10 MG TABLET PO ×3 (08:39→20:17)
[2024-01-09 08:40] VITALS: BP 117/84; PULSE 86
[2024-01-09] MEDS: amLODIPine Besylate 10 MG TABLET PO (08:40)
[2024-01-09] MEDS: Spironolactone 25 MG TABLET 12.5 MG PO (08:40)
[2024-01-09] MEDS: cloNIDine HCL 0.1 MG TABLET PO ×2 (08:40→20:18)
[2024-01-09] MEDS: Metoprolol Succinate ER 50 MG TAB.ER.24H PO (08:40)
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
[2024-01-09] MEDS: Throat Lozenge, Medicated LOZENGE 1 LOZENGE MUCOUS MEM (10:27)
[2024-01-09 14:06] VITALS: BP 139/69
[2024-01-09] MEDS: QUEtiapine Fumarate 100 MG TABLET PO (14:06)
[2024-01-09 20:00] VITALS: BP 135/79; PULSE 84; RESP 17; TEMP 36.6; O2SAT 96
[2024-01-09] MEDS: Zolpidem Tartrate 5 MG TABLET 10 MG PO (20:17)
[2024-01-09] MEDS: QUEtiapine Fumarate 400 MG TABLET PO (20:18)
[2024-01-10] MEDS: traZODone HCL 100 MG TABLET PO (02:32)
[2024-01-10] MEDS: Bismuth Subsalicylate Liquid 524 MG/30 ML ORAL.SUSP PO (02:33)
[2024-01-10 08:00] VITALS: BP 121/84; PULSE 95; RESP 16; TEMP 37.1; O2SAT 96
[2024-01-10 08:11] VITALS: BP 121/84
[2024-01-10] MEDS: amLODIPine Besylate 10 MG TABLET PO (08:11)
[2024-01-10 08:12] VITALS: BP 121/84
[2024-01-10] MEDS: hydrALAZINE HCl 10 MG TABLET PO (08:12)
[2024-01-10] MEDS: cloNIDine HCL 0.1 MG TABLET PO (08:12)
[2024-01-10 08:13] VITALS: BP 121/84; PULSE 95
[2024-01-10] MEDS: Spironolactone 25 MG TABLET 12.5 MG PO (08:13)
[2024-01-10] MEDS: Metoprolol Succinate ER 50 MG TAB.ER.24H PO (08:13)
[2024-01-10] MEDS: Acetaminophen 325 MG TABLET 650 MG PO (08:25)
--- NOTE | 2024-01-10 14:58 | P.DS_ITS ---
DS: Providers Provider Date of Service: 01/10/24 Date of admission: 12/27/23 12:29 Date of discharge: 01/10/24 Primary care physician: Unknown Physician Admitting clinician: Ginger Moore Attending physician on admission: Raemsh Bonilla Attending physician on discharge: Ramesh Bonilla Discharging clinician: Ginger Moore DS: Diagnosis Discharge Diagnosis (1) Bipolar I, most recent episode mixed, severe: Status: Deleted DS: Medications Discharge Medications Home Medications: Previous Rx's ?Medication ?Instructions ?Recorded amlodipine 10 mg tablet 10 mg PO DAILY 30 days #30 tabs 12/03/23 clonidine HCl 0.1 mg tablet 0.1 mg PO BID 30 days #60 tabs 12/03/23 hydralazine 10 mg tablet 10 mg PO TID 30 days #90 tabs 12/03/23 metoprolol succinate 50 mg 50 mg PO DAILY 30 days #30 tabs 12/03/23 tablet,extended release 24 hr omeprazole 20 mg capsule,delayed 20 mg PO BID@0630,1630 30 days #60 12/03/23 release caps quetiapine 300 mg tablet 300 mg PO BEDTIME 30 days #30 tabs 12/03/23 quetiapine 50 mg tablet 50 mg PO DAILY@1330 30 days #30 12/03/23 tabs spironolactone 25 mg tablet 12.5 mg PO DAILY #0 tabs 01/10/24 zolpidem 5 mg tablet 10 mg (2 x 5 mg) PO BEDTIME #5 tabs 01/10/24 Mental Status Exam Mental Status Exam Patient Appearance: Appropriate Patient Orientation: Person, Place, Time and Situation Level of Consciousness: Alert Patient Behavior: Talkative and Good Eye Contact Mood Description: Depressed, Anxious and Apprehensive Affect Description: Apprehensive Patient Cognition Impaired: No Ability to Follow Directions: Good Speech Pattern: Spontaneous Speech Memory Description: Intact Hallucinations: Auditory Perceptual Disturbances: Depersonalization and Derealization Thought Process: Rumination Depressive Symptoms: Increased Irritability and Difficulty Sleeping Judgement: Good Data Data Completed and Pending Completed studies during hospitalization [Text1]: 01/06/24 08:16 Estimat Average Glucose 123 Hemoglobin A1c % 5.9 Vitamin B12 460 Folate 3.9 L TSH 0.83 DS: Summary Hospital Course Hospital Course: Admission to adult psychiatry for exacerbation of bipolar disorder, type I. Medications were evaluated and adjusted. Pt remained out of the milieu for most of the admission, entering toward the end of her stay. She was disappointed that she was not admitted to , where she prefers the unit and providers. Pt completed her stay and discharged to a alf. She has daily calls to make to [facility] for admission and is on their waiting list.. [facility] is available to her for ongoing health care. Status at Discharge Functional status at discharge: independent ambulation Overall status at discharge: patient is progressing back to baseline Time Spent with Patient Time attestation: Total time managing care of this patient today ____ minutes. Time spent: Less than 30 minutes Discharge Plan Discharge Anticipated Discharge Date/Time: 01/10/24 12:00 Patient Disposition: [facility] Discharge Diagnosis: Bipolar Disorder, Type 1 Referrals: [facility] [Other] - 1 Week [facility] Open Access Walk-In [Other] - 1 Week (Let them know you discharged from inpatient and you will get priority. M-F 10-12) [facility] and Crisis Service [Other] - 1 Week (Walk-in same day appointment. ) [facility] Transition [facility]n [Other] - 1 Week (M-F 9-4pm) [facility] Care Management [Other] - 1 Week [facility] Street Outreach [Other] - 1 Day (Open 9-3pm) Physician,Unknown J [Primary Care Provider] - 1 Week Discharge Medications: New spironolactone 25 mg Tablet 12.5 mg PO DAILY Qty: 0 0RF Protocol: Hold for SBP< HOLD for SBP < : 90 zolpidem 5 mg Tablet 10 mg PO BEDTIME Qty: 5 1RF Continued hydralazine 10 mg Tablet 10 mg PO TID 30 Days Qty: 90 0RF Protocol: Hold for SBP< HOLD for SBP < : 90 clonidine HCl 0.1 mg tablet 0.1 mg PO BID 30 Days Qty: 60 0RF metoprolol succinate 50 mg Tablet Extended Release 24 Hr 50 mg PO DAILY 30 Days Qty: 30 0RF Protocol: Hold for SBP/HR < HOLD for SBP < : 90 HOLD for HR < : 60 amlodipine 10 mg Tablet 10 mg PO DAILY 30 Days Qty: 30 0RF Protocol: Hold for SBP< HOLD for SBP < : 90 omeprazole 20 mg Capsule,Delayed Release(Dr/Ec) 20 mg PO BID@0630,1630 30 Days Qty: 60 0RF quetiapine 300 mg Tablet 300 mg PO BEDTIME 30 Days Qty: 7 4RF quetiapine 50 mg Tablet 50 mg PO DAILY@1330 30 Days Qty: 30 0RF Discontinued spironolactone 25 mg tablet 25 mg PO DAILY Discharge Orders: Discharge Order (Routine); Ordered 01/10/24 Ordered By: Ginger Moore Diet: Regular diet Activity on Discharge: As tolerated Stand Alone Forms: Patient Portal Discharge page Print Language: British Care Plan Goals: Mood and Behavioral stabilization Health Concerns: Mood and Behavioral Stabilization Plan of Treatment: [facility] has offices in [facility] You report you have medications and are not in need of refills Call [facility] daily- you have been referred. They ask that you call after 9am to check for a bed [phone] Assessment: Pt interviewed prior to discharge and found to be fully oriented and without SI/HI. Pt has insight and demonstrates good judgment in terms of continuing treatment. Pt does not want to discharge, however, she is not able to remain in hospital until housing is secured. This was discussed. Pt is not in imminent risk of harm to self or others and has a safety plan that includes presenting to the closest ER or calling 911 if feeling unsafe. Pt has been observed by nursing and unit staff throughout admission. Pt has not engaged in any behaviors that suggest dangerousness to self or others and has demonstrated appropriate behaviors and impulse control. Discharge Date/Time: 01/10/24 11:30
== END 2024-01-10 11:30 | disposition home or self-care (01) | DRG 753 ==
LOC: HO.ED 20:04 → HO.PM5 12-27 12:35
PROVIDERS: Physician Assistant; Admitting Provider Psychiatry & Neurology Psychiatry; Emergency Provider Internal Medicine; Visit Provider Clinical Nurse Specialist Psychiatric/Mental Health, Adult
DX: F31.63 Bipolar disorder, current episode mixed, severe, without psychotic features (principal); R45.851 Suicidal ideations; R45.850 Homicidal ideations; I12.9 Hypertensive chronic kidney disease with stage 1 through stage 4 chronic kidney disease, or unspecified chronic kidney disease; N18.30 Chronic kidney disease, stage 3 unspecified; Z91.51 Personal history of suicidal behavior; Z20.822 Contact with and (suspected) exposure to COVID-19; Z79.899 Other long term (current) drug therapy
CPT/HCPCS: 36415; 80053; 80061; 80143; 80179; 80307; 81001; 82607; 82746; 83036; 84443; 85025; 87635; 93005; 99285; S9485

== ENCOUNTER → 2023-12-27 08:02 | Outpatient (BNV) | payer MEDICAID, SELFPAY | PROVIDERS: Admitting Provider Psychiatry & Neurology Psychiatry; Emergency Provider Internal Medicine; Visit Provider Internal Medicine Cardiovascular Disease | DX: I45.81 Long QT syndrome (principal) | CPT/HCPCS: 93010 ==

== ENCOUNTER → 2023-12-27 12:29 | Outpatient (BNV) | payer OTHER, SELFPAY | PROVIDERS: Admitting Provider Psychiatry & Neurology Psychiatry; Emergency Provider Internal Medicine; Visit Provider Psychiatry & Neurology Psychiatry | DX: F31.63 Bipolar disorder, current episode mixed, severe, without psychotic features (principal) | CPT/HCPCS: 99231; 99232 ==

== ENCOUNTER 2025-01-16 11:56 | Inpatient (IN) | payer MEDICAID, SELFPAY ==
[2025-01-16 12:06] VITALS: BP 140/90; PULSE 100; O2SAT 99
[2025-01-16 12:26] VITALS: BP 135/88; PULSE 95; RESP 18; TEMP 36.7; O2SAT 98; BMI 36.3
[2025-01-16 13:30] LABS: Appearance Urine Clear; Color Urine Yellow; Glucose Urine UA Negative (Negative); Leukocyte Esterase Urine Trace (Negative); Nitrite Urine Negative (Negative); Specific Gravity - Urine <= 1.005 (1.005-1.025); UMIC TRIGGER UACC YES; Urine Blood Negative (Negative); Urine Ketones Negative (Negative); Urine Protein Negative (Neg-Trace)
--- OUTSIDE RECORDS SUMMARY | 2025-01-16 13:31 | XMS_ITS | Encounter Summary ---
Author Organization [facility] Address [address] [place] [id number] Care Team Providers Care General Production Worker Name Role Phone Arnulfo Elizabeth VAT PACKER-C Primary Care Provider [phone] Encounter Details Date Type Department Care Team ([facility] st Contact Info) Description 02/12/2024 Patient Outreach Caring [facility] Main [address] [place] [id number] Kari Espinal, Community Health Worker [facility] [place] [address] Social History Tobacco Use Types Packs/Day Years Used Date Smoking Tobacco: Never Smokeless Tobacco: Never Alcohol Use Standard Drinks/Week Comments No 0 (1 standard drink = 0.6 oz pur e alcohol) Social Connections Answer Date Recorded Connectedness 2 10/04/2023 Financial Resource Strain Answer Date R ecorded Financial Resource Strain 2 2023 Stress Answer Date Recorded Stress 2 10/04/2023 Physical Activity Answer Date Recorded Physical Activity 2 10/04/2023 Food Insecurity Answer Date Recorded Food 2 10/04/2023 Transportation Needs Answer Date Record ed Transportation 2 10/04/2023 Housing Stability Answer Date Recorded Housing 2 10/04/2023 Safety and Environment Answer Date Mesfin rded Safety 1 10/04/2023 Utilities Answer Date Recorded Utilities 2 10/04/2023 Employment Answer Date Recorded Stress 1 10/04/2023 Comments No Sex and Gender Information Value Date Recorded Sex Assigned at Female 01/23/2018 6:38 AM PDT Legal Sex Female 11:36 AM PDT Gender Identity Female 01/23/2018 6:38 AM PDT Sexual Orientation Lesbian or Rocha 01/23/2018 6: 38 AM PDT documented as of this encounter Plan of Treatment Not on file documented as of this encounter Visit Diagnoses Not on filedocumented in this encounter Additional Health Concerns Assessment Noted Time PHQ-9 Depression Total Score: 24 024 4:19 PM PST documented as of this encounter Care Teams General Production Worker Relationship Specialty Start Date End Date Elizabeth Arredondo FNP-C [address] [place] [address] PCP - General Internal Medicine 12/10/23 documented as of this encounter
[2025-01-16 13:41] LABS: Amphetamine Screen Urine Not Detected (Not Detect); Barbiturates, Urine Not Detected (Not Detect); Benzodiazepines Screen Urine Not Detected (Not Detect); Buprenorphine Scr Not Detected (Not Detect); Cannabinoid Screen Urine Not Detected (Not Detect); Cocaine Screen Urine Not Detected (Not Detect); Fentanyl, urine Not Detected (Not Detect); Methadone Screen, Urine Not Detected (Not Detect); Opiate Screen Urine Not Detected (Not Detect); Oxycodone Screen Urine Not Detected (Not Detect); Phencyclidine Screen Urine Not Detected (Not Detect)
--- NOTE | 2025-01-16 13:53 | PC.NURSE ---
all belongings in [facility] on the ground
--- NOTE | 2025-01-16 14:07 | PC.NURSE ---
Pt in [facility] finishing lunch, report given to Jada MACK in POD. All belongings to remain in [facility], all medications gone through and accounted for, nothing is controlled, medications documented, placed in bag and placed in red duffle bag within pt belongings in [facility] [place]. As this RN was walking pt over to POD, pt stated I want to go to [facility] not [facility] they stole my cologne I am just depressed Pt brought into POD, pt aware of POD and policies, stating I know its not my first time here
[2025-01-16 14:16] VITALS: RESP 16
[2025-01-16 14:19] LABS: Bacteria Urine None Seen (None Seen); Hyaline Casts Urine 0-2 /LPF (0-2); RBC Urine 0-2 /HPF (0-2); Squamous Epithelial Cell Urine 0-2 /HPF (0-2); WBC Urine 0-5 /HPF (0-5)
--- NOTE | 2025-01-16 14:23 | ED_ITS ---
HPI - Psych General Chief Complaint: Psychiatric Symptoms Stated Complaint: SI/HI FROM [facility] 5DAY PROGRAM PER EMS Time Seen by Provider: 01/16/25 12:08 Source: patient and EMS Mode of arrival: EMS Limitations: no limitations History of Present Illness ED Provider: nevin Huizar APRN HPI Narrative: 59 yo female with history of hypothyroidism, HTN here with complaints of suicidal plan to hang herself for a while . No HI. No hallucinations. Denies substance use. Currently homeless, had been at [facility] housing until this morning. No physical complaints. Related Data Previous Rx's ?Medication ?Instructions ?Recorded amlodipine 10 mg tablet 10 mg PO DAILY 30 days #30 tabs 01/28/25 hydralazine 10 mg tablet 15 mg PO TID 14 days #63 tabs 01/28/25 melatonin 5 mg tablet 5 mg PO BEDTIME 30 days #30 tabs 01/28/25 metoprolol succinate 50 mg 50 mg PO DAILY 30 days #30 tabs 01/28/25 tablet,extended release 24 hr quetiapine 400 mg tablet 400 mg PO BEDTIME 30 days #30 tabs 01/28/25 trazodone 100 mg tablet 100 mg PO BEDTIME 30 days #30 tabs 01/28/25 Allergies Allergy/AdvReac Type Severity Reaction Status Date / Time [place] And Derivatives Allergy Severe Hives Verified 01/16/25 12:30 strawberry Allergy Severe Hives Verified 01/16/25 12:30 Review of Systems 2 Review of Systems: Yes all other systems are reviewed and are negative Constitutional: Constitutional: Reports no additional constitutional complaints, Denies body ache(s), Denies chills, Denies fever(s), Denies headache(s) and Denies weakness Eyes: Eyes: Reports no additional eye complaints and Denies change in vision ENT: Reports system reviewed and no additional complaints, except as documented, Denies dizziness, Denies headache(s), Denies nasal congestion, Denies nasal discharge and Denies neck pain Cardiovascular: Cardiovascular: Reports no additional cardiovascular complaints, Denies chest pain, Denies leg edema and Denies dyspnea Respiratory: Respiratory: Reports no additional respiratory complaints, Denies cough and Denies dyspnea Gastrointestinal: Gastrointestinal: Reports no additional gastrointestinal complaints, Denies abdominal pain, Denies diarrhea, Denies nausea and Denies vomiting Genitourinary: Genitourinary: Reports no additional female genitourinary complaints and Denies urinary incontinence Musculoskeletal: Musculoskeletal: Reports no additional musculoskeletal complaints, Denies back pain, Denies arthralgias, Denies joint swelling, Denies neck pain, Denies numbness and Denies tingling Integumentary/Breasts: Skin/Breast: Reports system reviewed and no additional complaints, except as docu and Denies rash Neurologic: Reports system reviewed and no additional complaints, except as documented, Denies Abnormal speech present, Denies dizziness, Denies headache(s), Denies numbness, Denies tingling and Denies weakness [facility] Past Medical History Attestation statement: The following information was validated with the patient. Source: old records reviewed and nursing notes reviewed Medical History Hypertension Nausea & vomiting Depression CKD (chronic kidney disease) stage 3, GFR 30-59 ml/min Surgical History (Updated 11/17/23 @ 11:00 by Adelina Galeano NP) H/O knee surgery Family History Family History Mother Diabetes mellitus Social History Social History Household Members: None Housing: Homeless Do you presently have visiting nurse or other home services: No Alcohol intake: current Alcohol intake frequency: a few times a month Comment: 1:1 sitter in for SI Patient Tobacco Use Status: Refuse Tobacco use screen Second Hand Smoke Exposure: No Substance Use Type: Opiates service: No Sexual orientation: Lesbian/Rocha/Homosexual Physical Exam 2 Vital Signs: Vital Signs: Last Vital Signs Temp 97.9 F 01/28/25 07:49 Pulse 71 01/28/25 07:49 Resp 16 01/28/25 07:49 BP 146/81 H 01/28/25 07:49 Pulse Ox 98 01/28/25 07:49 O2 Del Method Room Air 01/28/25 07:49 BMI result Body Mass Index 36.3 Const: General: cooperative, healthy appearing, comfortable and no acute distress Orientation/consciousness: patient oriented x3 Limitations: no limitations HEENT: Head: Yes normal to inspection Ears: hearing grossly normal bilaterally General nose exam: Normal external nose present Face and sinus: Yes normal facial exam Mouth: Normal oral and palatal mucosa present Throat: Yes posterior oropharynx normal Eyes: General: appearance normal, both eyes and all related structures P upils: Equal, round and reactive pupils present Neck: Neck: Yes normal visual inspection Chest: Chest palpation & inspection: normal inspection of the chest Resp: Effort & Inspection: normal respiratory effort Auscultation: clear to auscultation bilaterally Cardio: Rate: regular rate Rhythm: regular rhythm Peripheral pulses: P eripheral pulses 2+ throughout GI: Inspection: Yes normal to inspection Palpation (GI): Soft to palpation and nontender Auscultation: normal bowel sounds Back/Spine/Pelvis: Thoracic/Lumbar Spine: thoracic and lumbar spine normal to inspection Skin: General skin exam: no rashes or lesions noted Neuro: General: patient oriented x3, no focal motor deficits and normal sensation to monofilament Cranial nerves: Yes CN's II-XII intact bilaterally and Yes Equal, round and reactive pupils present Cognition (Neuro): normal cognition Speech: No Abnormal speech present Gait exam (Neuro): Normal gait present Motor exam (neuro): 5/5 motor strength present throughout Extrem: General: Yes normal to inspection Course Course Course Narrative: Time: 16:34 Date: 01/16/25 Provider: Nevin Huizar NP Patient placed in physician observation for psychiatric evaluation.? No current complaints. VS stable.? Patient is pending CARE team evaluation. Will continue to monitor. Reevaluation(s) Reevaluation #1: Time: 08:59 Date: 01/18/25 Provider: CANDACE Davenport Patient in physician observation for psychiatric evaluation.? No acute events reported overnight. No current complaints. VS stable.? Patient was seen by the care team on 01/16/2025, will be in IPLOC, Section 12a was placed in chart on 01/16. Patient is in bed search status. Pt with leukocytosis of 2.7, previous was 5.5. Vitals have been stable, will repeat cbc for comparison. Will continue to monitor. Medications Administered Discontinued Medications Generic Name Dose Route Start Last Admin Trade Name Freq PRN Reason Stop Dose Admin Acetaminophen 650 mg 01/16/25 14:21 01/18/25 08:36 Acetaminophen 325 Mg Tablet PO 650 mg QID PRN Administration Pain, Mild (Pain Scale 1-3) Acetaminophen 650 mg 01/19/25 13:34 01/27/25 10:18 Acetaminophen 325 Mg Tablet PO 650 mg Q6H PRN Administration Headache/Pain, Scale 1-10 Amlodipine Besylate 10 mg 01/17/25 09:00 01/28/25 08:17 Amlodipine Besylate 10 Mg Tablet PO 10 mg DAILY MITCHELL Administration Protocol Benzocaine 1 lozenge 01/20/25 11:34 01/27/25 10:18 Throat Lozenge, Medicated Lozenge MUCOUS MEM 1 lozenge Q2H PRN Administration Sore Throat Calcium Carbonate 750 mg 01/20/25 11:34 01/24/25 18:05 Calcium Carbonate 750 Mg Tab.Chew PO 750 mg Q6H PRN Administration Heartburn Chlorpromazine HCl 25 mg 01/21/25 14:50 01/24/25 20:32 Chlorpromazine Hcl 25 Mg Tablet PO 25 mg Q6H PRN Administration agitation Hydralazine HCl 10 mg 01/16/25 15:15 01/27/25 14:01 Hydralazine Hcl 10 Mg Tablet PO 10 mg TID MITCHELL Administration Protocol Hydralazine HCl 15 mg 01/27/25 21:00 01/28/25 08:18 Hydralazine Hcl 10 Mg Tablet PO 15 mg TID MITCHELL Administration Protocol Loratadine 10 mg 01/16/25 14:30 01/28/25 08:17 Loratadine 10 Mg Tablet PO 10 mg DAILY MITCHELL Administration Melatonin 3 mg 01/16/25 14:21 01/17/25 20:15 Melatonin 3 Mg Tablet PO 3 mg DAILY PRN Administration Insomnia Melatonin 6 mg 01/21/25 21:00 01/27/25 20:58 Melatonin 3 Mg Tablet PO 6 mg BEDTIME MITCHELL Administration Metoprolol Succinate 25 mg 01/17/25 09:30 01/25/25 08:43 Metoprolol Succinate Er 25 Mg Tab.Er.24h PO 25 mg DAILY MITCHELL Administration Protocol Metoprolol Succinate 50 mg 01/26/25 09:00 01/28/25 08:18 Metoprolol Succinate Er 50 Mg Tab.Er.24h PO 50 mg DAILY MITCHELL Administration Protocol Nicotine 21 mg 01/20/25 09:00 01/20/25 08:31 Nicotine 21 Mg Patch.Td24 TRANSDERMA Not Given DAILY MITCHELL Olanzapine 5 mg 01/19/25 17:11 01/20/25 21:20 Olanzapine 5 Mg Tablet PO 5 mg Q4H PRN Administration agitation Quetiapine Fumarate 50 mg 01/16/25 21:00 01/18/25 21:04 Quetiapine Fumarate 50 Mg Tablet PO 50 mg BEDTIME MITCHELL Administration Quetiapine Fumarate 300 mg 01/16/25 21:00 01/18/25 21:04 Quetiapine Fumarate 300 Mg Tablet PO 300 mg BEDTIME MITCHELL Administration Quetiapine Fumarate 400 mg 01/19/25 21:00 01/27/25 20:58 Quetiapine Fumarate 400 Mg Tablet PO 400 mg BEDTIME MITCHELL Administration Trazodone HCl 100 mg 01/19/25 21:00 01/27/25 20:58 Trazodone Hcl 100 Mg Tablet PO 100 mg BEDTIME MITCHELL Administration Medical Decision Making Medical Decision Making [facility] Narrative: 59 yo female with history of hypothyroidism, HTN here with complaints of suicidal plan to hang herself for a while . No HI. No hallucinations. Denies substance use. Currently homeless, had been at [facility] housing until this morning. No physical complaints. No concern for acute ingestion or trauma Will obtain labs, drug screen, crisis consultation Differential Diagnosis Differential Diagnoses: The differential diagnosis associated with the presentation includes Admission/Observation Consideration of admission/observation: Escalation of care including admission/observation considered Lab Data [facility] Lab Attestation statement: I reviewed the patient's lab results. 01/18/25 09:59 01/20/25 07:58 Labs: Lab Results 01/16/25 01/16/25 01/18/25 Range/Units 13:19 14:29 09:59 WBC 2.7 L 3.3 L (4.8-10.8) X10*3/uL RBC 4.03 L 3.89 L (4.20-5.50) X10*6/uL Hgb 12.6 12.1 (12.0-16.0) g/dl Hct 36.4 L 34.8 L (37.0-47.0) % MCV 90.3 89.5 (80.0-98.0) fL MCH 31.3 31.1 (27.0-33.0) pg MCHC 34.6 34.8 (31.0-35.0) g/dl RDW 13.1 13.2 (11.0-16.0) % Plt Count 169 D 141 L (160-400) X10*3/uL MPV 10.0 9.8 (9.4-12.3) fL Immature Gran % (Auto) 0.4 0.3 (0.0-0.4) % Neut % (Auto) 72.9 73.0 (45-73) % Lymph % (Auto) 12.8 L 12.6 L (20-40) % [place] % (Auto) 9.9 10.2 (2-11) % Eos % (Auto) 2.9 3.3 (0-4) % Baso % (Auto) 1.1 0.6 (0-2) % Lymph # (Auto) 0.4 L 0.4 L (1.2-4.9) X10*3/uL [place] # (Auto) 0.3 0.3 (0.1-1.2) X10*3/uL Eos # (Auto) 0.1 0.1 (0.0-0.4) X10*3/uL Baso # (Auto) 0.0 0.0 (0.0-0.2) X10*3/uL Abs Immat Gran (auto) 0.01 0.01 (0.00-0.03) X10*3/uL Absolute Neuts (auto) 2.0 2.4 (2.0-8.3) x10*3/uL Absolute Nucleated RBC 0.000 0.000 (0.0-0.012) X10*3/uL Nucleated RBC % (auto) 0.0 0.0 (0.0-0.2) /100WBC Sodium 141 (135-145) mmol/L Potassium 4.1 (3.3-5.1) mmol/L Chloride 106 (96-108) mmol/L Carbon Dioxide 27 (22-29) mmol/L Anion Gap 12 (12-20) BUN 12 (9-16) mg/dL Creatinine 1.31 (0.5-1.4) mg/dL Estim Creat Clear Calc 54.3 Estimated GFR 41 Random Glucose 104 (60-115) mg/dL Calcium 10.7 H (8.4-10.2) mg/dL Total Bilirubin 0.5 (0.0-1.0) mg/dL Direct Bilirubin 0.1 (0.0-0.5) mg/dL AST 59 H (5-31) U/L ALT 77 H (0-31) U/L Alkaline Phosphatase 117 (39-117) U/L Total Protein 7.4 (6.5-8.0) g/dL Albumin 4.2 (3.5-5.0) g/dL Urine Color Yellow Urine Appearance Clear Urine pH 5.0 (5.0-9.0) Ur Specific Winter <= 1.005 (1.005-1.025) Urine Protein Negative (Neg-Trace) mg/dL Urine Glucose (UA) Negative (Negative) mg/dL Urine Ketones Negative (Negative) mg/dL Urine Blood Negative (Negative) Urine Nitrite Negative (Negative) Ur Leukocyte Esterase Trace H (Negative) Urine RBC 0-2 (0-2) /HPF Urine WBC 0-5 (0-5) /HPF Ur Squamous Epith Cells 0-2 (0-2) /HPF Urine Bacteria None Seen (None Seen) Hyaline Casts 0-2 (0-2) /LPF Urine Opiates Screen Not Detected (Not Detect) Ur Buprenorphine Scrn Not Detected (Not Detect) ng/mL Ur Oxycodone Screen Not Detected (Not Detect) ng/mL Urine Methadone Screen Not Detected (Not Detect) ng/mL Urine Fentanyl Screen Not Detected (Not Detect) Ur Barbiturates Screen Not Detected (Not Detect) Ur Phencyclidine Scrn Not Detected (Not Detect) Ur Amphetamines Screen Not Detected (Not Detect) U Benzodiazepines Scrn Not Detected (Not Detect) Urine Cocaine Screen Not Detected (Not Detect) U Marijuana (THC) Screen Not Detected (Not Detect) Independent Historian Clinical information obtained from an independent historian. History obtained from or confirmed by: EMS Discharge Plan Discharge Clinical Impression: Bipolar 1 disorder Patient Disposition: Admitted As Inpatient Interventions: Admission Worksheet (ED) Last Done: 01/19/25 13:39 Discharge Date/Time: 01/19/25 13:40
[2025-01-16 14:34] LABS: MANUAL DIFF FLAG NO
[2025-01-16 14:37] LABS: Basophils Percent Auto 1.1 % (0-2); Eosinophils Absolute Auto 0.1 X10*3/uL (0.0-0.4); Eosinophils Percent Auto 2.9 % (0-4); Hematocrit 36.4 % (37.0-47.0); Hemoglobin 12.6 g/dl (12.0-16.0); Imm Gran Abs Auto 0.01 X10*3/uL (0.00-0.03); Imm Gran Pct Auto 0.4 % (0.0-0.4); Lymphocytes Absolute Auto 0.4 X10*3/uL (1.2-4.9); Lymphocytes Percent Auto 12.8 % (20-40); Mean Corpuscular HGB Conc 34.6 g/dl (31.0-35.0); Mean Corpuscular Hemoglobin 31.3 pg (27.0-33.0); Mean Corpuscular Volume 90.3 fL (80.0-98.0); Monocytes Absolute Auto 0.3 X10*3/uL (0.1-1.2); Monocytes Percent Auto 9.9 % (2-11); Neutrophils Percent Auto 72.9 % (45-73); Platelet Count 169 X10*3/uL (160-400); Red Blood Count 4.03 X10*6/uL (4.20-5.50); Red Cell Distribution Width 13.1 % (11.0-16.0); White Blood Count 2.7 X10*3/uL (4.8-10.8)
[2025-01-16 14:55] LABS: Albumin Level 4.2 g/dL (3.5-5.0); Alkaline Phosphatase 117 U/L (39-117); Anion Gap 12 (12-20); Aspartate Amino Transferase 59 U/L (5-31); Bilirubin Direct 0.1 mg/dL (0.0-0.5); Bilirubin Total 0.5 mg/dL (0.0-1.0); Blood Urea Nitrogen 12 mg/dL (9-16); Calcium 10.7 mg/dL (8.4-10.2); Carbon Dioxide 27 mmol/L (22-29); Chloride 106 mmol/L (96-108); Creatinine Clr Calc Pharmacy 54.3; Estimated Glomerular Filt Rate 41; Glucose Random 104 mg/dL (60-115); Potassium 4.1 mmol/L (3.3-5.1); Sodium 141 mmol/L (135-145); Total Protein 7.4 g/dL (6.5-8.0)
[2025-01-16 15:18] LABS: Alanine Aminotransferase 77 U/L (0-31)
[2025-01-16 15:28] VITALS: BP 135/88
[2025-01-16] MEDS: hydrALAZINE HCl 10 MG TABLET PO ×2 (15:28→20:15)
[2025-01-16] MEDS: Loratadine 10 MG TABLET PO (15:28)
--- NOTE | 2025-01-16 16:42 | MHC.CARE ---
Patient will be IPLOC. Section 12a placed in chart for safety.
--- NOTE | 2025-01-16 17:26 | PC.NURSE ---
pt resting on bed watching TV, no apparent distress noted
[2025-01-16] MEDS: Melatonin 3 MG TABLET PO (20:15)
[2025-01-16] MEDS: QUEtiapine Fumarate 50 MG TABLET PO (20:15)
[2025-01-16] MEDS: QUEtiapine Fumarate 300 MG TABLET PO (20:15)
[2025-01-16 20:24] VITALS: BP 138/94; PULSE 81; RESP 20; TEMP 36.6; O2SAT 97
[2025-01-17 02:58] VITALS: BP 139/84; PULSE 83; RESP 17; TEMP 36.8; O2SAT 99
--- NOTE | 2025-01-17 09:03 | PHA.MEDREC ---
Pharmacy Consult ? Medication Reconciliation RN has completed the medication reconciliation.Med rec updated, patient had med bottles with her. Patient takes metoprolol ER 25 mg daily, md notified of change.
[2025-01-17] MEDS: hydrALAZINE HCl 10 MG TABLET PO ×3 (09:43→20:15)
[2025-01-17] MEDS: Metoprolol Succinate ER 25 MG TAB.ER.24H PO (09:43)
[2025-01-17] MEDS: amLODIPine Besylate 10 MG TABLET PO (09:44)
[2025-01-17] MEDS: Loratadine 10 MG TABLET PO (09:44)
[2025-01-17 14:35] VITALS: BP 136/82; PULSE 77; RESP 18; TEMP 36.6; O2SAT 95
[2025-01-17 20:04] VITALS: BP 157/97; PULSE 77; RESP 16; TEMP 36.9; O2SAT 99
[2025-01-17 20:15] VITALS: BP 157/97
[2025-01-17] MEDS: QUEtiapine Fumarate 300 MG TABLET PO (20:15)
[2025-01-17] MEDS: Melatonin 3 MG TABLET PO (20:15)
[2025-01-17] MEDS: QUEtiapine Fumarate 50 MG TABLET PO (20:16)
[2025-01-18] VITALS (7 sets, daily range): BP systolic 131–157; BP diastolic 85–98; PULSE 72–80; RESP 16–20; TEMP 36.1–36.5; O2SAT 97–98
--- NOTE | 2025-01-18 | ECG_ITS ---
Test Reason : pysch Blood Pressure : */* mmHG Vent. Rate : 72 BPM Atrial Rate : 72 BPM P-R Int : 176 ms QRS Dur : 80 ms QT Int : 396 ms P-R-T Axes : 30 -24 26 degrees QTcB Int : 433 ms Normal sinus rhythm Normal ECG When compared with ECG of 27-Dec-2023 08:02, No significant change was found Referred By: Nicholas Paredes Electronically Signed By: KERI KING
--- NOTE | 2025-01-18 06:35 | PC.NURSE ---
Patient slept through the night, no distress observed/reported, 15 minutes safety check, no behavior and safety concerns, meds and meals compliant, disposition per care team is section-12 inpatient bed search, will continue to monitor
[2025-01-18] MEDS: amLODIPine Besylate 10 MG TABLET PO (08:34)
[2025-01-18] MEDS: hydrALAZINE HCl 10 MG TABLET PO ×3 (08:35→21:04)
[2025-01-18] MEDS: Metoprolol Succinate ER 25 MG TAB.ER.24H PO (08:35)
[2025-01-18] MEDS: Loratadine 10 MG TABLET PO (08:36)
[2025-01-18] MEDS: Acetaminophen 325 MG TABLET 650 MG PO (08:36)
[2025-01-18 10:03] LABS: MANUAL DIFF FLAG NO
[2025-01-18 10:10] LABS: Basophils Percent Auto 0.6 % (0-2); Eosinophils Absolute Auto 0.1 X10*3/uL (0.0-0.4); Eosinophils Percent Auto 3.3 % (0-4); Hematocrit 34.8 % (37.0-47.0); Hemoglobin 12.1 g/dl (12.0-16.0); Imm Gran Abs Auto 0.01 X10*3/uL (0.00-0.03); Imm Gran Pct Auto 0.3 % (0.0-0.4); Lymphocytes Absolute Auto 0.4 X10*3/uL (1.2-4.9); Lymphocytes Percent Auto 12.6 % (20-40); Mean Corpuscular HGB Conc 34.8 g/dl (31.0-35.0); Mean Corpuscular Hemoglobin 31.1 pg (27.0-33.0); Mean Corpuscular Volume 89.5 fL (80.0-98.0); Mean Platelet Volume 9.8 fL (9.4-12.3); Monocytes Absolute Auto 0.3 X10*3/uL (0.1-1.2); Monocytes Percent Auto 10.2 % (2-11); Neutrophils Absolute Auto 2.4 x10*3/uL (2.0-8.3); Platelet Count 141 X10*3/uL (160-400); Red Blood Count 3.89 X10*6/uL (4.20-5.50); Red Cell Distribution Width 13.2 % (11.0-16.0); White Blood Count 3.3 X10*3/uL (4.8-10.8)
--- NOTE | 2025-01-18 12:02 | PC.NURSE ---
Pt calm/cooperative with care at this time; awaiting placement
[2025-01-18] MEDS: QUEtiapine Fumarate 300 MG TABLET PO (21:04)
[2025-01-18] MEDS: QUEtiapine Fumarate 50 MG TABLET PO (21:04)
--- NOTE | 2025-01-18 23:06 | MHC.CARE ---
BH2 Arabella Osvaldo accepted to [facility] for tomorrow 01/19/25, ETA 10am. Address: [address] [place] [address].
--- NOTE | 2025-01-18 23:43 | MHC.CARE ---
Placement at [facility] has been cancelled, will present pt tomorrow for internal admission
--- NOTE | 2025-01-19 07:23 | PC.NURSE ---
Assumed care of patient at 0645, patient appears to be in no apparent distress today, calm and cooperative, eating breakfast in chair. Pt verbalizes understanding of plan of care for transport to external facility today
[2025-01-19 07:37] VITALS: BP 126/95; PULSE 84; RESP 18; TEMP 36.2; O2SAT 98
[2025-01-19 08:27] VITALS: BP 126/95; PULSE 84
[2025-01-19] MEDS: amLODIPine Besylate 10 MG TABLET PO (08:27)
[2025-01-19] MEDS: Metoprolol Succinate ER 25 MG TAB.ER.24H PO (08:27)
[2025-01-19] MEDS: Loratadine 10 MG TABLET PO (08:27)
[2025-01-19] MEDS: hydrALAZINE HCl 10 MG TABLET PO ×3 (08:27→20:18)
[2025-01-19 15:03] VITALS: BMI 28.4
[2025-01-19 15:24] VITALS: BP 143/100; PULSE 83; RESP 18; TEMP 36.8; O2SAT 98
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
[2025-01-19 17:30] VITALS: BP 145/97
[2025-01-19] MEDS: OLANZapine 5 MG TABLET PO (17:33)
[2025-01-19 20:00] VITALS: BP 151/92; PULSE 90; RESP 16; TEMP 36.8; O2SAT 97
[2025-01-19 20:18] VITALS: BP 125/89
[2025-01-19] MEDS: traZODone HCL 100 MG TABLET PO (20:18)
[2025-01-19] MEDS: QUEtiapine Fumarate 400 MG TABLET PO (20:18)
[2025-01-19] MEDS: Acetaminophen 325 MG TABLET 650 MG PO (20:21)
[2025-01-20 07:41] VITALS: BP 122/83; PULSE 82; RESP 16; TEMP 36.7; O2SAT 97
[2025-01-20 08:26] LABS: Estimated Average Glucose 103 mg/dL; Hemoglobin A1c % 5.2 % (<6.0); Total Hemoglobin (HGBA1C) 3405.0856 umol/L
[2025-01-20] MEDS: Loratadine 10 MG TABLET PO (08:29)
[2025-01-20] MEDS: amLODIPine Besylate 10 MG TABLET PO (08:29)
[2025-01-20] MEDS: hydrALAZINE HCl 10 MG TABLET PO ×3 (08:30→21:19)
[2025-01-20] MEDS: Metoprolol Succinate ER 25 MG TAB.ER.24H PO (08:30)
[2025-01-20 08:39] LABS: Alanine Aminotransferase 115 U/L (0-31); Albumin Level 4.1 g/dL (3.5-5.0); Alkaline Phosphatase 121 U/L (39-117); Anion Gap 12 (12-20); Aspartate Amino Transferase 68 U/L (5-31); Bilirubin Total 0.6 mg/dL (0.0-1.0); Blood Urea Nitrogen 20 mg/dL (9-16); Calcium 10.5 mg/dL (8.4-10.2); Carbon Dioxide 29 mmol/L (22-29); Chloride 107 mmol/L (96-108); Cholesterol 297 mg/dL (<200); Creatinine Clr Calc Pharmacy 45.2; Estimated Glomerular Filt Rate 39; Glucose Random 94 mg/dL (60-115); HDL Cholesterol 61 mg/dL (>40); LDL Cholesterol Calculated 200 mg/dL (<100); Potassium 4.6 mmol/L (3.3-5.1); Sodium 143 mmol/L (135-145); Total Protein 7.2 g/dL (6.5-8.0); Triglycerides 184 mg/dL (<150)
--- NOTE | 2025-01-20 09:57 | HO.PSYCHPN ---
Subjective Subjective Date of Service: 01/20/25 Reason For Visit: SI Subjective Notes: Conditional Voluntary Interim History: Pt continues to report feeling depressed; she reports suicidal ideation d/t auditory hallucinations telling her to harm herself. She reports poor sleep d/t room mate walking in and out of room. denies HI/VH. Continue current tx plan. Medication Compliance: Yes Side effects from medications: No Attending Groups: Intermittent Mental Status Exam Mental Status Exam Narrative: Pt is alert and oriented; behavior is cooperative and calm; dressed in casual attire; mood is described as depressed ; eye contact appropriate; Speech is normal rate, volume and not pressured; thought process is organized; Thought content is on tx; denies HI/VH. Patient reports suicidal ideation with plan to hang herself. She reports auditory hallucinations telling her to harm herself. Diagnostics Vital Signs (24Hr): Vital Signs - 24 hr 01/19/25 15:24 01/19/25 17:30 01/19/25 20:00 Temperature 98.2 F 98.2 F Pulse Rate 83 90 Respiratory Rate 18 16 Blood Pressure 143/100 H 145/97 H 151/92 H Pulse Oximetry 98 97 Oxygen Delivery Method Room Air Room Air 01/19/25 20:18 01/20/25 07:41 Temperature 98.1 F Pulse Rate 82 Respiratory Rate 16 Blood Pressure 125/89 122/83 Pulse Oximetry 97 Oxygen Delivery Method Room Air BMI result Body Mass Index 28.4 Labs 01/18/25 09:59 01/20/25 07:58 Labs: Laboratory Results - last 48 hr 01/18/25 01/20/25 09:59 07:58 WBC 3.3 L RBC 3.89 L Hgb 12.1 Hct 34.8 L MCV 89.5 MCH 31.1 MCHC 34.8 RDW 13.2 Plt Count 141 L MPV 9.8 Immature Gran % (Auto) 0.3 Neut % (Auto) 73.0 Lymph % (Auto) 12.6 L White % (Auto) 10.2 Eos % (Auto) 3.3 Baso % (Auto) 0.6 Lymph # (Auto) 0.4 L White # (Auto) 0.3 Eos # (Auto) 0.1 Baso # (Auto) 0.0 Abs Immat Gran (auto) 0.01 Absolute Neuts (auto) 2.4 Absolute Nucleated RBC 0.000 Nucleated RBC % (auto) 0.0 Sodium 143 Potassium 4.6 Chloride 107 Carbon Dioxide 29 Anion Gap 12 BUN 20 H Creatinine 1.39 Estim Creat Clear Calc 45.2 Estimated GFR 39 Random Glucose 94 Estimat Average Glucose 103 Hemoglobin A1c % 5.2 Calcium 10.5 H Total Bilirubin 0.6 AST 68 H ALT 115 H Alkaline Phosphatase 121 H Total Protein 7.2 Albumin 4.1 Triglycerides 184 H Cholesterol 297 H LDL Cholesterol, Calc 200 H HDL Cholesterol 61 Medications Medications Current Medications Acetaminophen (Acetaminophen 325 Mg Tablet) 650 mg PO Q6H PRN PRN Reason: Headache/Pain, Scale 1-10 Last Admin: 01/19/25 20:21 Dose: 650 mg Al Hydroxide/Mg Hydroxide (Magnesium Hydrox/Alum Hydrox 30 Ml Oral.Susp) 30 ml PO Q6H PRN PRN Reason: Heartburn/Nausea Amlodipine Besylate (Amlodipine Besylate 10 Mg Tablet) 10 mg PO DAILY [facility]; Protocol Last Admin: 01/20/25 08:29 Dose: 10 mg Hydralazine HCl (Hydralazine Hcl 10 Mg Tablet) 10 mg PO TID [facility]; Protocol Last Admin: 01/20/25 08:30 Dose: 10 mg Hydroxyzine HCl (Hydroxyzine Hcl 25 Mg Tablet) 25 mg PO Q6H PRN PRN Reason: mild anxiety Loratadine (Loratadine 10 Mg Tablet) 10 mg PO DAILY [facility] Last Admin: 01/20/25 08:29 Dose: 10 mg Magnesium Hydroxide (Milk Of Magnesia 30 Ml Oral.Susp) 30 ml PO DAILY PRN PRN Reason: Constipation Melatonin (Melatonin 3 Mg Tablet) 3 mg PO DAILY PRN PRN Reason: Insomnia Last Admin: 01/17/25 20:15 Dose: 3 mg Metoprolol Succinate (Metoprolol Succinate Er 25 Mg Tab.Er.24h) 25 mg PO DAILY [facility]; Protocol Last Admin: 01/20/25 08:30 Dose: 25 mg Nicotine (Nicotine 21 Mg Patch.Td24) 21 mg TRANSDERMA DAILY [facility] Last Admin: 01/20/25 08:31 Dose: Not Given Nicotine Polacrilex (Nicotine Polacrilex 2 Mg Gum) 4 mg BUCCAL Q2H PRN PRN Reason: Nicotine Cravings Olanzapine (Olanzapine 5 Mg Tablet) 5 mg PO Q4H PRN PRN Reason: agitation Last Admin: 01/19/25 17:33 Dose: 5 mg Quetiapine Fumarate (Quetiapine Fumarate 400 Mg Tablet) 400 mg PO BEDTIME [facility] Last Admin: 01/19/25 20:18 Dose: 400 mg Trazodone HCl (Trazodone Hcl 100 Mg Tablet) 100 mg PO BEDTIME [facility] Last Admin: 01/19/25 20:18 Dose: 100 mg Allergies Allergies Allergy/AdvReac Type Severity Reaction Status Date / Time [place] And Derivatives Allergy Severe Hives Verified 01/16/25 12:30 strawberry Allergy Severe Hives Verified 01/16/25 12:30 Assessment & Plan Assessment & Plan (1) Bipolar 1 disorder: Status: Acute Code(s): F31.9 - Bipolar disorder, unspecified (2) PTSD (post-traumatic stress disorder): Status: Acute Code(s): F43.10 - Post-traumatic stress disorder, unspecified Plan Patient is a 59-year-old female with history of bipolar disorder and PTSD who presented to ER via ambulance from [facility] on a section 12 due to suicidal ideation with a plan to hang herself secondary to increased depression. Plan: CV 15 minute safety checks Continue home medications Obtain collateral Referral to outpatient psychiatric providers Encourage groups Discharge planning 01/20:Pt continues to report feeling depressed; she reports suicidal ideation d/t auditory hallucinations telling her to harm herself. She reports poor sleep d/t room mate walking in and out of room. denies HI/VH. Continue current tx plan. Patient educated on: diagnosis, medication risk/benefits and therapeutic strategies Reason for continued inpatient stay Substantial Risk for: harm to self and med/psych decompensation Time Spent With Patient Time: Total time managing care of this patient today _20___ minutes.
[2025-01-20 14:39] VITALS: BP 133/85; PULSE 87
[2025-01-20 20:00] VITALS: BP 138/83; PULSE 87; RESP 18; TEMP 36.8; O2SAT 97
[2025-01-20 21:19] VITALS: BP 138/86
[2025-01-20] MEDS: traZODone HCL 100 MG TABLET PO (21:20)
[2025-01-20] MEDS: OLANZapine 5 MG TABLET PO (21:20)
[2025-01-20] MEDS: QUEtiapine Fumarate 400 MG TABLET PO (21:20)
[2025-01-20] MEDS: Throat Lozenge, Medicated LOZENGE 1 LOZENGE MUCOUS MEM (21:28)
[2025-01-21 07:00] VITALS: BMI 28.5
[2025-01-21 07:42] VITALS: BP 154/92; PULSE 71; RESP 17; TEMP 36.9; O2SAT 99
[2025-01-21] MEDS: amLODIPine Besylate 10 MG TABLET PO (08:21)
[2025-01-21] MEDS: Loratadine 10 MG TABLET PO (08:21)
[2025-01-21] MEDS: hydrALAZINE HCl 10 MG TABLET PO ×3 (08:21→20:50)
[2025-01-21] MEDS: Metoprolol Succinate ER 25 MG TAB.ER.24H PO (08:21)
--- NOTE | 2025-01-21 09:15 | HO.PSYCHPN ---
Subjective Subjective Date of Service: 01/21/25 Reason For Visit: SI Subjective Notes: Conditional Voluntary Interim History: Active on unit. social with peers. attending groups. Pt continues to report feeling depressed; pt stated, I'm still feeling depressed because of all the loses in my life . She reports poor sleep, however, nursing reports pt slept 8 hours last night. Continues to report auditory hallucinations; she is requesting to start on thorazine, Start: thorazine 25mg PO Q6HR PRN. denies SI/HI/VH. Pt reports she is worried about where she will go when discharged; she is unable to go to [facility]pc in [place] d/t no [facility] order and she does not want to go to [place] d/t rules of [facility]. Medication Compliance: Yes Side effects from medications: No Attending Groups: Yes Mental Status Exam Mental Status Exam Narrative: Pt is alert and oriented; behavior is cooperative and calm; dressed in casual attire; mood is described as depressed ; eye contact appropriate; Speech is normal rate, volume and not pressured; thought process is organized; Thought content is on tx; denies SI/HI/VH. She reports auditory hallucinations telling her to harm herself. Diagnostics Vital Signs (24Hr): Vital Signs - 24 hr 01/20/25 14:39 01/20/25 20:00 01/20/25 21:19 Temperature 98.3 F Pulse Rate 87 87 Respiratory Rate 18 Blood Pressure 133/85 138/83 138/86 Pulse Oximetry 97 Oxygen Delivery Method Room Air 01/21/25 07:42 Temperature 98.4 F Pulse Rate 71 Respiratory Rate 17 Blood Pressure 154/92 H Pulse Oximetry 99 Oxygen Delivery Method Room Air BMI result Body Mass Index 28.4 Labs 01/18/25 09:59 01/20/25 07:58 Labs: Laboratory Results - last 48 hr 01/20/25 07:58 Sodium 143 Potassium 4.6 Chloride 107 Carbon Dioxide 29 Anion Gap 12 BUN 20 H Creatinine 1.39 Estim Creat Clear Calc 45.2 Estimated GFR 39 Random Glucose 94 Estimat Average Glucose 103 Hemoglobin A1c % 5.2 Calcium 10.5 H Total Bilirubin 0.6 AST 68 H ALT 115 H Alkaline Phosphatase 121 H Total Protein 7.2 Albumin 4.1 Triglycerides 184 H Cholesterol 297 H LDL Cholesterol, Calc 200 H HDL Cholesterol 61 Medications Medications Current Medications Acetaminophen (Acetaminophen 325 Mg Tablet) 650 mg PO Q6H PRN PRN Reason: Headache/Pain, Scale 1-10 Last Admin: 01/19/25 20:21 Dose: 650 mg Al Hydroxide/Mg Hydroxide (Magnesium Hydrox/Alum Hydrox 30 Ml Oral.Susp) 30 ml PO Q6H PRN PRN Reason: Heartburn/Nausea Amlodipine Besylate (Amlodipine Besylate 10 Mg Tablet) 10 mg PO DAILY [facility]; Protocol Last Admin: 01/21/25 08:21 Dose: 10 mg Benzocaine (Throat Lozenge, Medicated Lozenge) 1 lozenge MUCOUS MEM Q2H PRN PRN Reason: Sore Throat Last Admin: 01/20/25 21:28 Dose: 1 lozenge Calcium Carbonate (Calcium Carbonate 750 Mg Tab.Chew) 750 mg PO Q6H PRN PRN Reason: Heartburn Hydralazine HCl (Hydralazine Hcl 10 Mg Tablet) 10 mg PO TID [facility]; Protocol Last Admin: 01/21/25 08:21 Dose: 10 mg Hydroxyzine HCl (Hydroxyzine Hcl 25 Mg Tablet) 25 mg PO Q6H PRN PRN Reason: mild anxiety Loratadine (Loratadine 10 Mg Tablet) 10 mg PO DAILY [facility] Last Admin: 01/21/25 08:21 Dose: 10 mg Magnesium Hydroxide (Milk Of Magnesia 30 Ml Oral.Susp) 30 ml PO DAILY PRN PRN Reason: Constipation Melatonin (Melatonin 3 Mg Tablet) 3 mg PO DAILY PRN PRN Reason: Insomnia Last Admin: 01/17/25 20:15 Dose: 3 mg Metoprolol Succinate (Metoprolol Succinate Er 25 Mg Tab.Er.24h) 25 mg PO DAILY [facility]; Protocol Last Admin: 01/21/25 08:21 Dose: 25 mg Olanzapine (Olanzapine 5 Mg Tablet) 5 mg PO Q4H PRN PRN Reason: agitation Last Admin: 01/20/25 21:20 Dose: 5 mg Quetiapine Fumarate (Quetiapine Fumarate 400 Mg Tablet) 400 mg PO BEDTIME [facility] Last Admin: 01/20/25 21:20 Dose: 400 mg Trazodone HCl (Trazodone Hcl 100 Mg Tablet) 100 mg PO BEDTIME [facility] Last Admin: 01/20/25 21:20 Dose: 100 mg Allergies Allergies Allergy/AdvReac Type Severity Reaction Status Date / Time [place] And Derivatives Allergy Severe Hives Verified 01/16/25 12:30 strawberry Allergy Severe Hives Verified 01/16/25 12:30 Assessment & Plan Assessment & Plan (1) Bipolar 1 disorder: Status: Acute Code(s): F31.9 - Bipolar disorder, unspecified (2) PTSD (post-traumatic stress disorder): Status: Acute Code(s): F43.10 - Post-traumatic stress disorder, unspecified Plan Patient is a 59-year-old female with history of bipolar disorder and PTSD who presented to ER via ambulance from [facility] on a section 12 due to suicidal ideation with a plan to hang herself secondary to increased depression. Plan: CV 15 minute safety checks Continue home medications Obtain collateral Referral to outpatient psychiatric providers Encourage groups Discharge planning 01/20:Pt continues to report feeling depressed; she reports suicidal ideation d/t auditory hallucinations telling her to harm herself. She reports poor sleep d/t room mate walking in and out of room. denies HI/VH. Continue current tx plan. 01/21: Active on unit. social with peers. attending groups. Pt continues to report feeling depressed; pt stated, I'm still feeling depressed because of all the loses in my life . She reports poor sleep, however, nursing reports pt slept 8 hours last night. Continues to report auditory hallucinations; she is requesting to start on thorazine, Start: thorazine 25mg PO Q6HR PRN. denies SI/HI/VH. Pt reports she is worried about where she will go when discharged; she is unable to go to [facility]pc in [place] d/t no [facility] order and she does not want to go to [place] d/t rules of [facility]. Patient educated on: diagnosis, medication risk/benefits and therapeutic strategies Reason for continued inpatient stay Substantial Risk for: med/psych decompensation Time Spent With Patient Time: Total time managing care of this patient today _20___ minutes.
[2025-01-21] MEDS: Throat Lozenge, Medicated LOZENGE 1 LOZENGE MUCOUS MEM ×2 (13:57→20:51)
[2025-01-21 15:46] VITALS: BP 155/81
[2025-01-21] MEDS: chlorproMAZINE HCl 25 MG TABLET PO (15:46)
[2025-01-21 19:57] VITALS: BP 126/60; PULSE 93; RESP 18; TEMP 36.5; O2SAT 97
[2025-01-21] MEDS: Melatonin 3 MG TABLET 6 MG PO (20:51)
[2025-01-21] MEDS: QUEtiapine Fumarate 400 MG TABLET PO (20:51)
[2025-01-21] MEDS: Acetaminophen 325 MG TABLET 650 MG PO (20:52)
[2025-01-21] MEDS: traZODone HCL 100 MG TABLET PO (20:53)
[2025-01-22 08:25] VITALS: BP 149/85; PULSE 70; RESP 14; TEMP 36.6; O2SAT 99
[2025-01-22] MEDS: Metoprolol Succinate ER 25 MG TAB.ER.24H PO (08:30)
[2025-01-22] MEDS: Loratadine 10 MG TABLET PO (08:31)
[2025-01-22] MEDS: Throat Lozenge, Medicated LOZENGE 1 LOZENGE MUCOUS MEM ×3 (08:31→20:34)
[2025-01-22] MEDS: hydrALAZINE HCl 10 MG TABLET PO ×3 (08:31→20:36)
[2025-01-22] MEDS: amLODIPine Besylate 10 MG TABLET PO (08:31)
--- NOTE | 2025-01-22 08:47 | P.PNPSI_ITS ---
Subjective Subjective Date of Service: 01/22/25 Reason For Visit: SI Subjective Notes: Conditional Voluntary Interim History: Active on unit. social with peers. attending groups. Patient reports feeling okay today; pt stated, the thorazine worked well. It decreased my voices and helped me sleep . Per nursing, slept 8 hours. denies SI/HI/VH/AH. Continue current tx plan. Medication Compliance: Yes Side effects from medications: No Attending Groups: Yes Mental Status Exam Mental Status Exam Narrative: Pt is alert and oriented; behavior is cooperative and calm; dressed in casual attire; mood is described as okay ; eye contact appropriate; Speech is normal rate, volume and not pressured; thought process is organized; Thought content is on tx; denies SI/HI/VH/AH. Diagnostics Vital Signs (24Hr): Vital Signs - 24 hr 01/21/25 15:46 01/21/25 19:57 01/22/25 08:25 Temperature 97.7 F 97.8 F Pulse Rate 93 70 Respiratory Rate 18 14 Blood Pressure 155/81 H 126/60 149/85 H Pulse Oximetry 97 99 Oxygen Delivery Method Room Air Room Air BMI result Body Mass Index 28.5 Labs 01/18/25 09:59 01/20/25 07:58 Medications Medications Current Medications Acetaminophen (Acetaminophen 325 Mg Tablet) 650 mg PO Q6H PRN PRN Reason: Headache/Pain, Scale 1-10 Last Admin: 01/21/25 20:52 Dose: 650 mg Al Hydroxide/Mg Hydroxide (Magnesium Hydrox/Alum Hydrox 30 Ml Oral.Susp) 30 ml PO Q6H PRN PRN Reason: Heartburn/Nausea Amlodipine Besylate (Amlodipine Besylate 10 Mg Tablet) 10 mg PO DAILY [facility]; Protocol Last Admin: 01/22/25 08:31 Dose: 10 mg Benzocaine (Throat Lozenge, Medicated Lozenge) 1 lozenge MUCOUS MEM Q2H PRN PRN Reason: Sore Throat Last Admin: 01/22/25 08:31 Dose: 1 lozenge Calcium Carbonate (Calcium Carbonate 750 Mg Tab.Chew) 750 mg PO Q6H PRN PRN Reason: Heartburn Chlorpromazine HCl (Chlorpromazine Hcl 25 Mg Tablet) 25 mg PO Q6H PRN PRN Reason: agitation Last Admin: 01/21/25 15:46 Dose: 25 mg Hydralazine HCl (Hydralazine Hcl 10 Mg Tablet) 10 mg PO TID [facility]; Protocol Last Admin: 01/22/25 08:31 Dose: 10 mg Hydroxyzine HCl (Hydroxyzine Hcl 25 Mg Tablet) 25 mg PO Q6H PRN PRN Reason: mild anxiety Loratadine (Loratadine 10 Mg Tablet) 10 mg PO DAILY [facility] Last Admin: 01/22/25 08:31 Dose: 10 mg Magnesium Hydroxide (Milk Of Magnesia 30 Ml Oral.Susp) 30 ml PO DAILY PRN PRN Reason: Constipation Melatonin (Melatonin 3 Mg Tablet) 6 mg PO BEDTIME [facility] Last Admin: 01/21/25 20:51 Dose: 6 mg Metoprolol Succinate (Metoprolol Succinate Er 25 Mg Tab.Er.24h) 25 mg PO DAILY [facility]; Protocol Last Admin: 01/22/25 08:30 Dose: 25 mg Quetiapine Fumarate (Quetiapine Fumarate 400 Mg Tablet) 400 mg PO BEDTIME [facility] Last Admin: 01/21/25 20:51 Dose: 400 mg Trazodone HCl (Trazodone Hcl 100 Mg Tablet) 100 mg PO BEDTIME [facility] Last Admin: 01/21/25 20:53 Dose: 100 mg Allergies Allergies Allergy/AdvReac Type Severity Reaction Status Date / Time [place] And Derivatives Allergy Severe Hives Verified 01/16/25 12:30 strawberry Allergy Severe Hives Verified 01/16/25 12:30 Assessment & Plan Assessment & Plan (1) Bipolar 1 disorder: Status: Acute Code(s): F31.9 - Bipolar disorder, unspecified (2) PTSD (post-traumatic stress disorder): Status: Acute Code(s): F43.10 - Post-traumatic stress disorder, unspecified Plan Patient is a 59-year-old female with history of bipolar disorder and PTSD who presented to ER via ambulance from [facility] on a section 12 due to suicidal ideation with a plan to hang herself secondary to increased depression. Plan: CV 15 minute safety checks Continue home medications Obtain collateral Referral to outpatient psychiatric providers Encourage groups Discharge planning 01/20:Pt continues to report feeling depressed; she reports suicidal ideation d/t auditory hallucinations telling her to harm herself. She reports poor sleep d/t room mate walking in and out of room. denies HI/VH. Continue current tx plan. 01/21: Active on unit. social with peers. attending groups. Pt continues to report feeling depressed; pt stated, I'm still feeling depressed because of all the loses in my life . She reports poor sleep, however, nursing reports pt slept 8 hours last night. Continues to report auditory hallucinations; she is requesting to start on thorazine, Start: thorazine 25mg PO Q6HR PRN. denies SI/HI/VH. Pt reports she is worried about where she will go when discharged; she is unable to go to [facility] in [place] d/t no [facility] order and she does not want to go to [place] d/t rules of [facility]. 01/22: Active on unit. social with peers. attending groups. Patient reports feeling okay today; pt stated, the thorazine worked well. It decreased my voices and helped me sleep . Per nursing, slept 8 hours. denies SI/HI/VH/AH. Continue current tx plan. Patient educated on: diagnosis, medication risk/benefits and therapeutic strategies Reason for continued inpatient stay Substantial Risk for: med/psych decompensation Time Spent With Patient Time: Total time managing care of this patient today _20___ minutes.
[2025-01-22 15:01] VITALS: BP 164/94
[2025-01-22 18:24] LABS: Influenza A PCR NEGATIVE (Negative); Influenza B PCR NEGATIVE (Negative); Resp Syncy Virus RNA Qual PCR NEGATIVE (Negative); SARS COV2 PCR INHOUSE NEGATIVE (Negative)
[2025-01-22 19:25] VITALS: BP 127/90; PULSE 80; RESP 18; TEMP 36.8; O2SAT 97
[2025-01-22] MEDS: Acetaminophen 325 MG TABLET 650 MG PO (20:35)
[2025-01-22 20:36] VITALS: BP 127/90
[2025-01-22] MEDS: QUEtiapine Fumarate 400 MG TABLET PO (20:37)
[2025-01-22] MEDS: Melatonin 3 MG TABLET 6 MG PO (20:38)
[2025-01-22] MEDS: traZODone HCL 100 MG TABLET PO (20:38)
[2025-01-23 08:00] VITALS: BP 142/88; PULSE 83; RESP 16; TEMP 36.4; O2SAT 99
[2025-01-23] MEDS: Loratadine 10 MG TABLET PO (09:08)
[2025-01-23] MEDS: Metoprolol Succinate ER 25 MG TAB.ER.24H PO (09:09)
[2025-01-23] MEDS: amLODIPine Besylate 10 MG TABLET PO (09:09)
[2025-01-23] MEDS: hydrALAZINE HCl 10 MG TABLET PO ×3 (09:09→21:25)
[2025-01-23] MEDS: Throat Lozenge, Medicated LOZENGE 1 LOZENGE MUCOUS MEM ×2 (09:12→21:26)
[2025-01-23] MEDS: Acetaminophen 325 MG TABLET 650 MG PO ×2 (09:12→21:27)
--- NOTE | 2025-01-23 12:02 | HO.PSYCHPN ---
Subjective Subjective Date of Service: 01/23/25 Reason For Visit: SI Subjective Notes: Conditional Voluntary Interim History: Patient was seen and discussed in rounds today. Records and plans were reviewed. She continues to be somewhat depressed with no SI and no plans. Her SARS panel were negative. Medication compliant. No complaints or side effects. No changes were made today Review of Systems Review of Systems Yes all other systems are reviewed and are negative Mental Status Exam Mental Status Exam Narrative: In today's visit she is alert, oriented and pleasant. Normal speech. Moderate eye contact. Appropriate affect though constricted. No signs of psychosis. No SI. Cognitively intact. Judgment is intact Diagnostics Vital Signs (24Hr): Vital Signs - 24 hr 01/22/25 15:01 01/22/25 19:25 01/22/25 20:36 Temperature 98.3 F Pulse Rate 80 Respiratory Rate 18 Blood Pressure 164/94 H 127/90 H 127/90 H Pulse Oximetry 97 Oxygen Delivery Method Room Air 01/23/25 08:00 Temperature 97.5 F Pulse Rate 83 Respiratory Rate 16 Blood Pressure 142/88 H Pulse Oximetry 99 Oxygen Delivery Method Room Air BMI result Body Mass Index 28.5 Labs 01/18/25 09:59 01/20/25 07:58 Labs: Laboratory Results - last 48 hr 01/22/25 17:32 Influenza Type A (PCR) NEGATIVE Influenza Type B (PCR) NEGATIVE RSV RNA Qual (PCR) NEGATIVE SARS-CoV-2 RNA (RT-PCR) NEGATIVE Medications Medications Current Medications Acetaminophen (Acetaminophen 325 Mg Tablet) 650 mg PO Q6H PRN PRN Reason: Headache/Pain, Scale 1-10 Last Admin: 01/23/25 09:12 Dose: 650 mg Al Hydroxide/Mg Hydroxide (Magnesium Hydrox/Alum Hydrox 30 Ml Oral.Susp) 30 ml PO Q6H PRN PRN Reason: Heartburn/Nausea Amlodipine Besylate (Amlodipine Besylate 10 Mg Tablet) 10 mg PO DAILY [facility]; Protocol Last Admin: 01/23/25 09:09 Dose: 10 mg Benzocaine (Throat Lozenge, Medicated Lozenge) 1 lozenge MUCOUS MEM Q2H PRN PRN Reason: Sore Throat Last Admin: 01/23/25 09:12 Dose: 1 lozenge Calcium Carbonate (Calcium Carbonate 750 Mg Tab.Chew) 750 mg PO Q6H PRN PRN Reason: Heartburn Chlorpromazine HCl (Chlorpromazine Hcl 25 Mg Tablet) 25 mg PO Q6H PRN PRN Reason: agitation Last Admin: 01/21/25 15:46 Dose: 25 mg Hydralazine HCl (Hydralazine Hcl 10 Mg Tablet) 10 mg PO TID [facility]; Protocol Last Admin: 01/23/25 09:09 Dose: 10 mg Hydroxyzine HCl (Hydroxyzine Hcl 25 Mg Tablet) 25 mg PO Q6H PRN PRN Reason: mild anxiety Loratadine (Loratadine 10 Mg Tablet) 10 mg PO DAILY [facility] Last Admin: 01/23/25 09:08 Dose: 10 mg Magnesium Hydroxide (Milk Of Magnesia 30 Ml Oral.Susp) 30 ml PO DAILY PRN PRN Reason: Constipation Melatonin (Melatonin 3 Mg Tablet) 6 mg PO BEDTIME [facility] Last Admin: 01/22/25 20:38 Dose: 6 mg Metoprolol Succinate (Metoprolol Succinate Er 25 Mg Tab.Er.24h) 25 mg PO DAILY [facility]; Protocol Last Admin: 01/23/25 09:09 Dose: 25 mg Quetiapine Fumarate (Quetiapine Fumarate 400 Mg Tablet) 400 mg PO BEDTIME [facility] Last Admin: 01/22/25 20:37 Dose: 400 mg Trazodone HCl (Trazodone Hcl 100 Mg Tablet) 100 mg PO BEDTIME [facility] Last Admin: 01/22/25 20:38 Dose: 100 mg Allergies Allergies Allergy/AdvReac Type Severity Reaction Status Date / Time [place] And Derivatives Allergy Severe Hives Verified 01/16/25 12:30 strawberry Allergy Severe Hives Verified 01/16/25 12:30 Assessment & Plan Assessment & Plan (1) Bipolar 1 disorder: Status: Acute Code(s): F31.9 - Bipolar disorder, unspecified (2) PTSD (post-traumatic stress disorder): Status: Acute Code(s): F43.10 - Post-traumatic stress disorder, unspecified Plan Patient is a 59-year-old female with history of bipolar disorder and PTSD who presented to ER via ambulance from [facility] on a section 12 due to suicidal ideation with a plan to hang herself secondary to increased depression. Plan: CV 15 minute safety checks Continue home medications Obtain collateral Referral to outpatient psychiatric providers Encourage groups Discharge planning 01/20:Pt continues to report feeling depressed; she reports suicidal ideation d/t auditory hallucinations telling her to harm herself. She reports poor sleep d/t room mate walking in and out of room. denies HI/VH. Continue current tx plan. 01/21: Active on unit. social with peers. attending groups. Pt continues to report feeling depressed; pt stated, I'm still feeling depressed because of all the loses in my life . She reports poor sleep, however, nursing reports pt slept 8 hours last night. Continues to report auditory hallucinations; she is requesting to start on thorazine, Start: thorazine 25mg PO Q6HR PRN. denies SI/HI/VH. Pt reports she is worried about where she will go when discharged; she is unable to go to custodial [facility] [place] [facility] and she does not want to go to [place] d/t rules of custodial. 01/22: Active on unit. social with peers. attending groups. Patient reports feeling okay today; pt stated, the thorazine worked well. It decreased my voices and helped me sleep . Per nursing, slept 8 hours. denies SI/HI/VH/AH. Continue current tx plan. Reason for continued inpatient stay Substantial Risk for: med/psych decompensation Time Spent With Patient Time: Total time managing care of this patient today ____ minutes.
[2025-01-23 15:25] VITALS: BP 153/103; PULSE 73
[2025-01-23 15:37] VITALS: BP 153/103
[2025-01-23 16:31] VITALS: BP 153/96; PULSE 69
[2025-01-23 20:30] VITALS: BP 144/85; PULSE 77; RESP 18; TEMP 37; O2SAT 98
[2025-01-23 21:25] VITALS: BP 144/85
[2025-01-23] MEDS: QUEtiapine Fumarate 400 MG TABLET PO (21:25)
[2025-01-23] MEDS: Melatonin 3 MG TABLET 6 MG PO (21:25)
[2025-01-23] MEDS: traZODone HCL 100 MG TABLET PO (21:26)
[2025-01-23] MEDS: Calcium Carbonate 750 MG TAB.CHEW PO (21:34)
[2025-01-24 07:57] VITALS: BP 124/85; PULSE 84; RESP 16; TEMP 36.8; O2SAT 98
[2025-01-24] MEDS: Loratadine 10 MG TABLET PO (08:31)
[2025-01-24] MEDS: amLODIPine Besylate 10 MG TABLET PO (08:31)
[2025-01-24] MEDS: Metoprolol Succinate ER 25 MG TAB.ER.24H PO (08:31)
[2025-01-24] MEDS: hydrALAZINE HCl 10 MG TABLET PO ×3 (08:31→20:32)
[2025-01-24] MEDS: Throat Lozenge, Medicated LOZENGE 1 LOZENGE MUCOUS MEM ×2 (08:52→20:29)
--- NOTE | 2025-01-24 09:34 | P.PNPSI_ITS ---
Subjective Subjective Date of Service: 01/24/25 Reason For Visit: SI Subjective Notes: Conditional Voluntary Interim History: Patient was seen and discussed in rounds today. Records and plans were reviewed. She is mostly irritable and periods of being pleasant and social. Some grandiosity observed. She has not had any outbursts. Admits to depression and ?I want to kill myself? but no specific plans or dangerous behaviors reported. No changes were made today Review of Systems Review of Systems Yes all other systems are reviewed and are negative Mental Status Exam Mental Status Exam Narrative: In today's visit she is alert, oriented and pleasant. Normal speech. No eye contact. Somewhat irritable. Appropriate affect though constricted. No signs of psychosis. No SI. Cognitively intact. Judgment is intact Diagnostics Vital Signs (24Hr): Vital Signs - 24 hr 01/23/25 15:25 01/23/25 15:37 01/23/25 16:31 Temperature Pulse Rate 73 69 Respiratory Rate Blood Pressure 153/103 H 153/103 H 153/96 H Pulse Oximetry Oxygen Delivery Method 01/23/25 20:30 01/23/25 21:25 01/24/25 07:57 Temperature 98.6 F 98.2 F Pulse Rate 77 84 Respiratory Rate 18 16 Blood Pressure 144/85 H 144/85 H 124/85 Pulse Oximetry 98 98 Oxygen Delivery Method Room Air Room Air BMI result Body Mass Index 28.5 Labs 01/18/25 09:59 01/20/25 07:58 Labs: Laboratory Results - last 48 hr 01/22/25 17:32 Influenza Type A (PCR) NEGATIVE Influenza Type B (PCR) NEGATIVE RSV RNA Qual (PCR) NEGATIVE SARS-CoV-2 RNA (RT-PCR) NEGATIVE Medications Medications Current Medications Acetaminophen (Acetaminophen 325 Mg Tablet) 650 mg PO Q6H PRN PRN Reason: Headache/Pain, Scale 1-10 Last Admin: 01/23/25 21:27 Dose: 650 mg Al Hydroxide/Mg Hydroxide (Magnesium Hydrox/Alum Hydrox 30 Ml Oral.Susp) 30 ml PO Q6H PRN PRN Reason: Heartburn/Nausea Amlodipine Besylate (Amlodipine Besylate 10 Mg Tablet) 10 mg PO DAILY [facility]; Protocol Last Admin: 01/24/25 08:31 Dose: 10 mg Benzocaine (Throat Lozenge, Medicated Lozenge) 1 lozenge MUCOUS MEM Q2H PRN PRN Reason: Sore Throat Last Admin: 01/24/25 08:52 Dose: 1 lozenge Calcium Carbonate (Calcium Carbonate 750 Mg Tab.Chew) 750 mg PO Q6H PRN PRN Reason: Heartburn Last Admin: 01/23/25 21:34 Dose: 750 mg Chlorpromazine HCl (Chlorpromazine Hcl 25 Mg Tablet) 25 mg PO Q6H PRN PRN Reason: agitation Last Admin: 01/21/25 15:46 Dose: 25 mg Hydralazine HCl (Hydralazine Hcl 10 Mg Tablet) 10 mg PO TID [facility]; Protocol Last Admin: 01/24/25 08:31 Dose: 10 mg Hydroxyzine HCl (Hydroxyzine Hcl 25 Mg Tablet) 25 mg PO Q6H PRN PRN Reason: mild anxiety Loratadine (Loratadine 10 Mg Tablet) 10 mg PO DAILY [facility] Last Admin: 01/24/25 08:31 Dose: 10 mg Magnesium Hydroxide (Milk Of Magnesia 30 Ml Oral.Susp) 30 ml PO DAILY PRN PRN Reason: Constipation Melatonin (Melatonin 3 Mg Tablet) 6 mg PO BEDTIME [facility] Last Admin: 01/23/25 21:25 Dose: 6 mg Metoprolol Succinate (Metoprolol Succinate Er 25 Mg Tab.Er.24h) 25 mg PO DAILY [facility]; Protocol Last Admin: 01/24/25 08:31 Dose: 25 mg Quetiapine Fumarate (Quetiapine Fumarate 400 Mg Tablet) 400 mg PO BEDTIME [facility] Last Admin: 01/23/25 21:25 Dose: 400 mg Trazodone HCl (Trazodone Hcl 100 Mg Tablet) 100 mg PO BEDTIME [facility] Last Admin: 01/23/25 21:26 Dose: 100 mg Allergies Allergies Allergy/AdvReac Type Severity Reaction Status Date / Time [place] And Derivatives Allergy Severe Hives Verified 01/16/25 12:30 strawberry Allergy Severe Hives Verified 01/16/25 12:30 Assessment & Plan Assessment & Plan (1) Bipolar 1 disorder: Status: Acute Code(s): F31.9 - Bipolar disorder, unspecified (2) PTSD (post-traumatic stress disorder): Status: Acute Code(s): F43.10 - Post-traumatic stress disorder, unspecified Plan Patient is a 59-year-old female with history of bipolar disorder and PTSD who presented to ER via ambulance from [facility] on a section 12 due to suicidal ideation with a plan to hang herself secondary to increased depression. Plan: CV 15 minute safety checks Continue home medications Obtain collateral Referral to outpatient psychiatric providers Encourage groups Discharge planning 01/20:Pt continues to report feeling depressed; she reports suicidal ideation d/t auditory hallucinations telling her to harm herself. She reports poor sleep d/t room mate walking in and out of room. denies HI/VH. Continue current tx plan. 01/21: Active on unit. social with peers. attending groups. Pt continues to report feeling depressed; pt stated, I'm still feeling depressed because of all the loses in my life . She reports poor sleep, however, nursing reports pt slept 8 hours last night. Continues to report auditory hallucinations; she is requesting to start on thorazine, Start: thorazine 25mg PO Q6HR PRN. denies SI/HI/VH. Pt reports she is worried about where she will go when discharged; she is unable to go to residential in [place] [facility] and she does not want to go to [place] d/t rules of residential. 01/22: Active on unit. social with peers. attending groups. Patient reports feeling okay today; pt stated, the thorazine worked well. It decreased my voices and helped me sleep . Per nursing, slept 8 hours. denies SI/HI/VH/AH. Continue current tx plan. 01/24: Continue current regimen and plans Reason for continued inpatient stay Substantial Risk for: med/psych decompensation Time Spent With Patient Time: Total time managing care of this patient today ____ minutes.
[2025-01-24] MEDS: Acetaminophen 325 MG TABLET 650 MG PO ×2 (12:55→20:30)
[2025-01-24 14:50] VITALS: BP 152/98; PULSE 72
[2025-01-24] MEDS: Calcium Carbonate 750 MG TAB.CHEW PO (18:05)
[2025-01-24 20:00] VITALS: BP 141/93; PULSE 85; RESP 16; TEMP 37; O2SAT 99
[2025-01-24] MEDS: QUEtiapine Fumarate 400 MG TABLET PO (20:29)
[2025-01-24] MEDS: Melatonin 3 MG TABLET 6 MG PO (20:31)
[2025-01-24 20:32] VITALS: BP 141/93
[2025-01-24] MEDS: chlorproMAZINE HCl 25 MG TABLET PO (20:32)
[2025-01-24] MEDS: traZODone HCL 100 MG TABLET PO (20:33)
[2025-01-25 07:40] VITALS: BP 151/87; PULSE 71; RESP 14; TEMP 36.7; O2SAT 98
[2025-01-25 08:43] VITALS: BP 151/87; PULSE 71
[2025-01-25] MEDS: Metoprolol Succinate ER 25 MG TAB.ER.24H PO (08:43)
[2025-01-25] MEDS: Loratadine 10 MG TABLET PO (08:44)
[2025-01-25 08:45] VITALS: BP 151/87
[2025-01-25] MEDS: hydrALAZINE HCl 10 MG TABLET PO ×3 (08:45→21:23)
[2025-01-25] MEDS: amLODIPine Besylate 10 MG TABLET PO (08:45)
[2025-01-25] MEDS: Acetaminophen 325 MG TABLET 650 MG PO ×2 (09:02→21:24)
[2025-01-25] MEDS: Throat Lozenge, Medicated LOZENGE 1 LOZENGE MUCOUS MEM ×2 (09:37→21:23)
--- NOTE | 2025-01-25 10:18 | P.PNPSI_ITS ---
Subjective Subjective Date of Service: 01/25/25 Reason For Visit: SI Subjective Notes: Conditional Voluntary Interim History: Active on unit, social with peers. attending groups. Patient reports feeling better today; continues focused on discharge and where she will go, plans on calling [facility] today. denies SI/HI/VH. She reports auditory hallucinations that are minimal. Plan for discharge this week if continues to improve; pt aware. Medication Compliance: Yes Side effects from medications: No Attending Groups: Yes Mental Status Exam Mental Status Exam Narrative: Pt is alert and oriented; behavior is cooperative and calm; dressed in casual attire; mood is described as anxious ; eye contact appropriate; Speech is normal rate, volume and not pressured; thought process is organized; Thought content is on discharge; denies SI/HI/VH. +AH that are minimal. Diagnostics Vital Signs (24Hr): Vital Signs - 24 hr 01/24/25 14:50 01/24/25 20:00 01/24/25 20:32 Temperature 98.6 F Pulse Rate 72 85 Respiratory Rate 16 Blood Pressure 152/98 H 141/93 H 141/93 H Pulse Oximetry 99 Oxygen Delivery Method Room Air 01/25/25 07:40 01/25/25 08:43 01/25/25 08:45 Temperature 98.0 F Pulse Rate 71 71 Respiratory Rate 14 Blood Pressure 151/87 H 151/87 H 151/87 H Pulse Oximetry 98 Oxygen Delivery Method Room Air 01/25/25 08:45 Temperature Pulse Rate Respiratory Rate Blood Pressure 151/87 H Pulse Oximetry Oxygen Delivery Method BMI result Body Mass Index 28.5 Labs 01/18/25 09:59 01/20/25 07:58 Medications Medications Current Medications Acetaminophen (Acetaminophen 325 Mg Tablet) 650 mg PO Q6H PRN PRN Reason: Headache/Pain, Scale 1-10 Last Admin: 01/25/25 09:02 Dose: 650 mg Al Hydroxide/Mg Hydroxide (Magnesium Hydrox/Alum Hydrox 30 Ml Oral.Susp) 30 ml PO Q6H PRN PRN Reason: Heartburn/Nausea Amlodipine Besylate (Amlodipine Besylate 10 Mg Tablet) 10 mg PO DAILY [facility]; Protocol Last Admin: 01/25/25 08:45 Dose: 10 mg Benzocaine (Throat Lozenge, Medicated Lozenge) 1 lozenge MUCOUS MEM Q2H PRN PRN Reason: Sore Throat Last Admin: 01/25/25 09:37 Dose: 1 lozenge Calcium Carbonate (Calcium Carbonate 750 Mg Tab.Chew) 750 mg PO Q6H PRN PRN Reason: Heartburn Last Admin: 01/24/25 18:05 Dose: 750 mg Chlorpromazine HCl (Chlorpromazine Hcl 25 Mg Tablet) 25 mg PO Q6H PRN PRN Reason: agitation Last Admin: 01/24/25 20:32 Dose: 25 mg Hydralazine HCl (Hydralazine Hcl 10 Mg Tablet) 10 mg PO TID [facility]; Protocol Last Admin: 01/25/25 08:45 Dose: 10 mg Hydroxyzine HCl (Hydroxyzine Hcl 25 Mg Tablet) 25 mg PO Q6H PRN PRN Reason: mild anxiety Loratadine (Loratadine 10 Mg Tablet) 10 mg PO DAILY [facility] Last Admin: 01/25/25 08:44 Dose: 10 mg Magnesium Hydroxide (Milk Of Magnesia 30 Ml Oral.Susp) 30 ml PO DAILY PRN PRN Reason: Constipation Melatonin (Melatonin 3 Mg Tablet) 6 mg PO BEDTIME [facility] Last Admin: 01/24/25 20:31 Dose: 6 mg Metoprolol Succinate (Metoprolol Succinate Er 25 Mg Tab.Er.24h) 25 mg PO DAILY [facility]; Protocol Last Admin: 01/25/25 08:43 Dose: 25 mg Quetiapine Fumarate (Quetiapine Fumarate 400 Mg Tablet) 400 mg PO BEDTIME [facility] Last Admin: 01/24/25 20:29 Dose: 400 mg Trazodone HCl (Trazodone Hcl 100 Mg Tablet) 100 mg PO BEDTIME [facility] Last Admin: 01/24/25 20:33 Dose: 100 mg Allergies Allergies Allergy/AdvReac Type Severity Reaction Status Date / Time [place] And Derivatives Allergy Severe Hives Verified 01/16/25 12:30 strawberry Allergy Severe Hives Verified 01/16/25 12:30 Assessment & Plan Assessment & Plan (1) Bipolar 1 disorder: Status: Acute Code(s): F31.9 - Bipolar disorder, unspecified (2) PTSD (post-traumatic stress disorder): Status: Acute Code(s): F43.10 - Post-traumatic stress disorder, unspecified Plan Patient is a 59-year-old female with history of bipolar disorder and PTSD who presented to ER via ambulance from [facility] on a section 12 due to suicidal ideation with a plan to hang herself secondary to increased depression. Plan: CV 15 minute safety checks Continue home medications Obtain collateral Referral to outpatient psychiatric providers Encourage groups Discharge planning 01/20:Pt continues to report feeling depressed; she reports suicidal ideation d/t auditory hallucinations telling her to harm herself. She reports poor sleep d/t room mate walking in and out of room. denies HI/VH. Continue current tx plan. 01/21: Active on unit. social with peers. attending groups. Pt continues to report feeling depressed; pt stated, I'm still feeling depressed because of all the loses in my life . She reports poor sleep, however, nursing reports pt slept 8 hours last night. Continues to report auditory hallucinations; she is requesting to start on thorazine, Start: thorazine 25mg PO Q6HR PRN. denies SI/HI/VH. Pt reports she is worried about where she will go when discharged; she is [facility] to [facility] [place] [facility] and she does not want to go to [place] d/t rules of group home. 01/22: Active on unit. social with peers. attending groups. Patient reports feeling okay today; pt stated, the thorazine worked well. It decreased my voices and helped me sleep . Per nursing, slept 8 hours. denies SI/HI/VH/AH. Continue current tx plan. 01/24: Continue current regimen and plans 01/25: Active on unit, social with peers. attending groups. Patient reports feeling better today; continues focused on discharge and where she will go, plans on calling [facility] today. denies SI/HI/VH. She reports auditory hallucinations that are minimal. Plan for discharge this week if continues to improve; pt aware Patient educated on: diagnosis, medication risk/benefits and therapeutic strategies Reason for continued inpatient stay Substantial Risk for: med/psych decompensation Time Spent With Patient Time: Total time managing care of this patient today _20___ minutes.
[2025-01-25 15:20] VITALS: BP 145/85; PULSE 86; RESP 16; TEMP 36.4; O2SAT 99
[2025-01-25 20:00] VITALS: BP 147/85; PULSE 77; RESP 18; TEMP 36.9; O2SAT 99
[2025-01-25] MEDS: QUEtiapine Fumarate 400 MG TABLET PO (21:22)
[2025-01-25] MEDS: traZODone HCL 100 MG TABLET PO (21:22)
[2025-01-25 21:23] VITALS: BP 147/85
[2025-01-25] MEDS: Melatonin 3 MG TABLET 6 MG PO (21:23)
[2025-01-26] MEDS: Throat Lozenge, Medicated LOZENGE 1 LOZENGE MUCOUS MEM ×2 (05:56→16:23)
[2025-01-26 07:15] VITALS: BP 135/86; PULSE 69; RESP 16; TEMP 36.9; O2SAT 97
[2025-01-26 09:13] VITALS: BP 137/95
[2025-01-26] MEDS: Loratadine 10 MG TABLET PO (09:13)
[2025-01-26] MEDS: amLODIPine Besylate 10 MG TABLET PO (09:13)
[2025-01-26] MEDS: hydrALAZINE HCl 10 MG TABLET PO ×3 (09:13→20:08)
[2025-01-26 09:14] VITALS: BP 137/95; PULSE 95
[2025-01-26] MEDS: Metoprolol Succinate ER 50 MG TAB.ER.24H PO (09:14)
--- NOTE | 2025-01-26 09:16 | P.PNPSI_ITS ---
Subjective Subjective Date of Service: 01/26/25 Reason For Visit: SI Subjective Notes: Conditional Voluntary Interim History: Patient reports feeling good today; continues focused on discharge and where she will go. denies SI/HI/VH/AH. Per nursing, slept 7 hours last night. pt requesting DM application; social media project manager aware. Plan to discharge ; pt aware. Medication Compliance: Yes Side effects from medications: No Mental Status Exam Mental Status Exam Narrative: Pt is alert and oriented; behavior is cooperative and calm; dressed in casual attire; mood is described as anxious ; eye contact appropriate; Speech is normal rate, volume and not pressured; thought process is organized; Thought content is on discharge; denies SI/HI/VH/AH. Diagnostics Vital Signs (24Hr): Vital Signs - 24 hr 01/25/25 15:20 01/25/25 20:00 01/25/25 21:23 Temperature 97.5 F 98.4 F Pulse Rate 86 77 Respiratory Rate 16 18 Blood Pressure 145/85 H 147/85 H 147/85 H Pulse Oximetry 99 99 Oxygen Delivery Method Room Air Room Air 01/26/25 07:15 01/26/25 09:13 01/26/25 09:13 Temperature 98.4 F Pulse Rate 69 Respiratory Rate 16 Blood Pressure 135/86 137/95 H 137/95 H Pulse Oximetry 97 Oxygen Delivery Method Room Air 01/26/25 09:14 Temperature Pulse Rate 95 Respiratory Rate Blood Pressure 137/95 H Pulse Oximetry Oxygen Delivery Method BMI result Body Mass Index 28.5 Labs 01/18/25 09:59 01/20/25 07:58 Medications Medications Current Medications Acetaminophen (Acetaminophen 325 Mg Tablet) 650 mg PO Q6H PRN PRN Reason: Headache/Pain, Scale 1-10 Last Admin: 01/25/25 21:24 Dose: 650 mg Al Hydroxide/Mg Hydroxide (Magnesium Hydrox/Alum Hydrox 30 Ml Oral.Susp) 30 ml PO Q6H PRN PRN Reason: Heartburn/Nausea Amlodipine Besylate (Amlodipine Besylate 10 Mg Tablet) 10 mg PO DAILY [facility]; Protocol Last Admin: 01/26/25 09:13 Dose: 10 mg Benzocaine (Throat Lozenge, Medicated Lozenge) 1 lozenge MUCOUS MEM Q2H PRN PRN Reason: Sore Throat Last Admin: 01/26/25 05:56 Dose: 1 lozenge Calcium Carbonate (Calcium Carbonate 750 Mg Tab.Chew) 750 mg PO Q6H PRN PRN Reason: Heartburn Last Admin: 01/24/25 18:05 Dose: 750 mg Chlorpromazine HCl (Chlorpromazine Hcl 25 Mg Tablet) 25 mg PO Q6H PRN PRN Reason: agitation Last Admin: 01/24/25 20:32 Dose: 25 mg Hydralazine HCl (Hydralazine Hcl 10 Mg Tablet) 10 mg PO TID [facility]; Protocol Last Admin: 01/26/25 09:13 Dose: 10 mg Hydroxyzine HCl (Hydroxyzine Hcl 25 Mg Tablet) 25 mg PO Q6H PRN PRN Reason: mild anxiety Loratadine (Loratadine 10 Mg Tablet) 10 mg PO DAILY [facility] Last Admin: 01/26/25 09:13 Dose: 10 mg Magnesium Hydroxide (Milk Of Magnesia 30 Ml Oral.Susp) 30 ml PO DAILY PRN PRN Reason: Constipation Melatonin (Melatonin 3 Mg Tablet) 6 mg PO BEDTIME [facility] Last Admin: 01/25/25 21:23 Dose: 6 mg Metoprolol Succinate (Metoprolol Succinate Er 50 Mg Tab.Er.24h) 50 mg PO DAILY [facility]; Protocol Last Admin: 01/26/25 09:14 Dose: 50 mg Quetiapine Fumarate (Quetiapine Fumarate 400 Mg Tablet) 400 mg PO BEDTIME [facility] Last Admin: 01/25/25 21:22 Dose: 400 mg Trazodone HCl (Trazodone Hcl 100 Mg Tablet) 100 mg PO BEDTIME [facility] Last Admin: 01/25/25 21:22 Dose: 100 mg Allergies Allergies Allergy/AdvReac Type Severity Reaction Status Date / Time [place] And Derivatives Allergy Severe Hives Verified 01/16/25 12:30 strawberry Allergy Severe Hives Verified 01/16/25 12:30 Assessment & Plan Assessment & Plan (1) Bipolar 1 disorder: Status: Acute Code(s): F31.9 - Bipolar disorder, unspecified (2) PTSD (post-traumatic stress disorder): Status: Acute Code(s): F43.10 - Post-traumatic stress disorder, unspecified Plan Patient is a 59-year-old female with history of bipolar disorder and PTSD who presented to ER via ambulance from [facility] on a section 12 due to suicidal ideation with a plan to hang herself secondary to increased depression. Plan: CV 15 minute safety checks Continue home medications Obtain collateral Referral to outpatient psychiatric providers Encourage groups Discharge planning 01/20:Pt continues to report feeling depressed; she reports suicidal ideation d/t auditory hallucinations telling her to harm herself. She reports poor sleep d/t room mate walking in and out of room. denies HI/VH. Continue current tx plan. 01/21: Active on unit. social with peers. attending groups. Pt continues to report feeling depressed; pt stated, I'm still feeling depressed because of all the loses in my life . She reports poor sleep, however, nursing reports pt slept 8 hours last night. Continues to report auditory hallucinations; she is requesting to start on thorazine, Start: thorazine 25mg PO Q6HR PRN. denies SI/HI/VH. Pt reports she is worried about where she will go when discharged; she is [facility] to [facility] [place] [facility] and she does not want to go to [place] d/t rules of residential. 01/22: Active on unit. social with peers. attending groups. Patient reports feeling okay today; pt stated, the thorazine worked well. It decreased my voices and helped me sleep . Per nursing, slept 8 hours. denies SI/HI/VH/AH. Continue current tx plan. 01/24: Continue current regimen and plans 01/25: Active on unit, social with peers. attending groups. Patient reports feeling better today; continues focused on discharge and where she will go, plans on calling [facility] today. denies SI/HI/VH. She reports auditory hallucinations that are minimal. Plan for discharge this week if continues to improve; pt aware. 01/26: Patient reports feeling good today; continues focused on discharge and where she will go. denies SI/HI/VH/AH. Per nursing, slept 7 hours last night. pt requesting [facility] application; social media project manager aware. Plan to discharge ; pt aware. continue current tx plan Patient educated on: diagnosis, medication risk/benefits and therapeutic strategies Reason for continued inpatient stay Substantial Risk for: med/psych decompensation Time Spent With Patient Time: Total time managing care of this patient today _20___ minutes.
[2025-01-26] MEDS: Acetaminophen 325 MG TABLET 650 MG PO (11:04)
[2025-01-26 14:59] VITALS: BP 159/94
[2025-01-26 19:15] VITALS: BP 143/84; PULSE 79; RESP 18; TEMP 36.9; O2SAT 99
[2025-01-26] MEDS: Melatonin 3 MG TABLET 6 MG PO (20:08)
[2025-01-26] MEDS: traZODone HCL 100 MG TABLET PO (20:08)
[2025-01-26] MEDS: QUEtiapine Fumarate 400 MG TABLET PO (20:09)
[2025-01-27 08:00] VITALS: BP 139/86; PULSE 71; RESP 14; TEMP 36.4; O2SAT 98
[2025-01-27] MEDS: amLODIPine Besylate 10 MG TABLET PO (08:38)
[2025-01-27] MEDS: hydrALAZINE HCl 10 MG TABLET PO ×2 (08:38→14:01)
[2025-01-27] MEDS: Loratadine 10 MG TABLET PO (08:38)
[2025-01-27] MEDS: Metoprolol Succinate ER 50 MG TAB.ER.24H PO (08:38)
--- NOTE | 2025-01-27 09:15 | HO.PSYCHPN ---
Subjective Subjective Date of Service: 01/27/25 Reason For Visit: SI Subjective Notes: Conditional Voluntary Interim History: Active on unit, social with peers. attending groups. Patient continues to report feeling good today and ready for discharge. denies SI/HI/VH/AH. Pt reports she plans on applying for [facility] services. Patient states she plans on following up with outpatient providers. Medication Compliance: Yes Side effects from medications: No Attending Groups: Yes Mental Status Exam Mental Status Exam Narrative: Pt is alert and oriented; behavior is cooperative and calm; dressed in casual attire; mood is described as good ; eye contact appropriate; Speech is normal rate, volume and not pressured; thought process is organized; Thought content is on discharge; denies SI/HI/VH/AH. Diagnostics Vital Signs (24Hr): Vital Signs - 24 hr 01/26/25 14:59 01/26/25 19:15 01/27/25 08:00 Temperature 98.4 F 97.6 F Pulse Rate 79 71 Respiratory Rate 18 14 Blood Pressure 159/94 H 143/84 H 139/86 Pulse Oximetry 99 98 Oxygen Delivery Method Room Air Room Air 01/27/25 08:00 Temperature 97.6 F Pulse Rate 71 Respiratory Rate 14 Blood Pressure 139/86 Pulse Oximetry 98 Oxygen Delivery Method Room Air BMI result Body Mass Index 28.5 Labs 01/18/25 09:59 01/20/25 07:58 Medications Medications Current Medications Acetaminophen (Acetaminophen 325 Mg Tablet) 650 mg PO Q6H PRN PRN Reason: Headache/Pain, Scale 1-10 Last Admin: 01/26/25 11:04 Dose: 650 mg Al Hydroxide/Mg Hydroxide (Magnesium Hydrox/Alum Hydrox 30 Ml Oral.Susp) 30 ml PO Q6H PRN PRN Reason: Heartburn/Nausea Amlodipine Besylate (Amlodipine Besylate 10 Mg Tablet) 10 mg PO DAILY [facility]; Protocol Last Admin: 01/27/25 08:38 Dose: 10 mg Benzocaine (Throat Lozenge, Medicated Lozenge) 1 lozenge MUCOUS MEM Q2H PRN PRN Reason: Sore Throat Last Admin: 01/26/25 16:23 Dose: 1 lozenge Calcium Carbonate (Calcium Carbonate 750 Mg Tab.Chew) 750 mg PO Q6H PRN PRN Reason: Heartburn Last Admin: 01/24/25 18:05 Dose: 750 mg Chlorpromazine HCl (Chlorpromazine Hcl 25 Mg Tablet) 25 mg PO Q6H PRN PRN Reason: agitation Last Admin: 01/24/25 20:32 Dose: 25 mg Hydralazine HCl (Hydralazine Hcl 10 Mg Tablet) 10 mg PO TID [facility]; Protocol Last Admin: 01/27/25 08:38 Dose: 10 mg Hydroxyzine HCl (Hydroxyzine Hcl 25 Mg Tablet) 25 mg PO Q6H PRN PRN Reason: mild anxiety Loratadine (Loratadine 10 Mg Tablet) 10 mg PO DAILY [facility] Last Admin: 01/27/25 08:38 Dose: 10 mg Magnesium Hydroxide (Milk Of Magnesia 30 Ml Oral.Susp) 30 ml PO DAILY PRN PRN Reason: Constipation Melatonin (Melatonin 3 Mg Tablet) 6 mg PO BEDTIME [facility] Last Admin: 01/26/25 20:08 Dose: 6 mg Metoprolol Succinate (Metoprolol Succinate Er 50 Mg Tab.Er.24h) 50 mg PO DAILY [facility]; Protocol Last Admin: 01/27/25 08:38 Dose: 50 mg Quetiapine Fumarate (Quetiapine Fumarate 400 Mg Tablet) 400 mg PO BEDTIME [facility] Last Admin: 01/26/25 20:09 Dose: 400 mg Trazodone HCl (Trazodone Hcl 100 Mg Tablet) 100 mg PO BEDTIME [facility] Last Admin: 01/26/25 20:08 Dose: 100 mg Allergies Allergies Allergy/AdvReac Type Severity Reaction Status Date / Time [place] And Derivatives Allergy Severe Hives Verified 01/16/25 12:30 strawberry Allergy Severe Hives Verified 01/16/25 12:30 Assessment & Plan Assessment & Plan (1) Bipolar 1 disorder: Status: Acute Code(s): F31.9 - Bipolar disorder, unspecified (2) PTSD (post-traumatic stress disorder): Status: Acute Code(s): F43.10 - Post-traumatic stress disorder, unspecified Plan Patient is a 59-year-old female with history of bipolar disorder and PTSD who presented to ER via ambulance from [facility] on a section 12 due to suicidal ideation with a plan to hang herself secondary to increased depression. Plan: CV 15 minute safety checks Continue home medications Obtain collateral Referral to outpatient psychiatric providers Encourage groups Discharge planning 01/20:Pt continues to report feeling depressed; she reports suicidal ideation d/t auditory hallucinations telling her to harm herself. She reports poor sleep d/t room mate walking in and out of room. denies HI/VH. Continue current tx plan. 01/21: Active on unit. social with peers. attending groups. Pt continues to report feeling depressed; pt stated, I'm still feeling depressed because of all the loses in my life . She reports poor sleep, however, nursing reports pt slept 8 hours last night. Continues to report auditory hallucinations; she is requesting to start on thorazine, Start: thorazine 25mg PO Q6HR PRN. denies SI/HI/VH. Pt reports she is worried about where she will go when discharged; [facility] [place] [facility] and she does not want to go to [place] [facility]. 01/22: Active on unit. social with peers. attending groups. Patient reports feeling okay today; pt stated, the thorazine worked well. It decreased my voices and helped me sleep . Per nursing, slept 8 hours. denies SI/HI/VH/AH. Continue current tx plan. 01/24: Continue current regimen and plans 01/25: Active on unit, social with peers. attending groups. Patient reports feeling better today; continues focused on discharge and where she will go, plans on calling [facility] today. denies SI/HI/VH. She reports auditory hallucinations that are minimal. Plan for discharge this week if continues to improve; pt aware. 01/26: Patient reports feeling good today; continues focused on discharge and where she will go. denies SI/HI/VH/AH. Per nursing, slept 7 hours last night. pt requesting [facility] application; social sciences chair aware. Plan to discharge ; pt aware. continue current tx plan 01/27: Active on unit, social with peers. attending groups. Patient continues to report feeling good today and ready for discharge. denies SI/HI/VH/AH. Pt reports she plans on applying for [facility] services. Hospitalist consult placed for continuous hypertension. Patient states she plans on following up with outpatient providers. Patient educated on: diagnosis and medication risk/benefits Reason for continued inpatient stay Substantial Risk for: stable for discharge Time Spent With Patient Time: Total time managing care of this patient today _20___ minutes.
[2025-01-27] MEDS: Acetaminophen 325 MG TABLET 650 MG PO (10:18)
[2025-01-27] MEDS: Throat Lozenge, Medicated LOZENGE 1 LOZENGE MUCOUS MEM (10:18)
[2025-01-27 14:01] VITALS: BP 156/89
--- NOTE | 2025-01-27 16:24 | PM.EVENT ---
Event Note Date of Service: 01/27/25 Event Note: Reviewed blood pressure is ranging 130's-150s over 80s to 90s. Currently taking metoprolol, Norvasc and hydralazine 10 mg p.o. t.i.d.. We will increase the hydralazine to 15 mg t.i.d. Patient can follow up with her primary care for further management Time Spent With Patient Time: Total time managing care of this patient today ____ minutes.
[2025-01-27 20:00] VITALS: BP 153/86; PULSE 72; RESP 16; TEMP 36.9; O2SAT 97
[2025-01-27] MEDS: hydrALAZINE HCl 10 MG TABLET 15 MG PO (20:57)
[2025-01-27] MEDS: traZODone HCL 100 MG TABLET PO (20:58)
[2025-01-27] MEDS: QUEtiapine Fumarate 400 MG TABLET PO (20:58)
[2025-01-27] MEDS: Melatonin 3 MG TABLET 6 MG PO (20:58)
[2025-01-28 07:49] VITALS: BP 146/81; PULSE 71; RESP 16; TEMP 36.6; O2SAT 98
[2025-01-28] MEDS: amLODIPine Besylate 10 MG TABLET PO (08:17)
[2025-01-28] MEDS: Loratadine 10 MG TABLET PO (08:17)
[2025-01-28] MEDS: Metoprolol Succinate ER 50 MG TAB.ER.24H PO (08:18)
[2025-01-28] MEDS: hydrALAZINE HCl 10 MG TABLET 15 MG PO (08:18)
--- NOTE | 2025-01-28 09:05 | PM.PSYDC ---
DS: Providers Provider Date of Service: 01/28/25 Date of admission: 01/19/25 12:03 Date of discharge: 01/28/25 Primary care physician: Nonstaff Physician Admitting clinician: Sravanthi Moreno Attending physician on admission: Ramesh Bonilla Consults: 01/27/25 14:53 Consult to Hospitalist Routine Comment: Consulting Provider: [facility] Hospitalists Reason For Exam: continous hypertension despite medications Attending physician on discharge: Ramesh Bonilla Discharging clinician: Sravanthi Moreno DS: Diagnosis Discharge Diagnosis (1) Bipolar 1 disorder: Status: Acute (2) PTSD (post-traumatic stress disorder): Status: Acute DS: Medications Discharge Medications Home Medications: Previous Rx's ?Medication ?Instructions ?Recorded amlodipine 10 mg tablet 10 mg PO DAILY 30 days #30 tabs 01/28/25 hydralazine 10 mg tablet 15 mg PO TID 14 days #63 tabs 01/28/25 melatonin 5 mg tablet 5 mg PO BEDTIME 30 days #30 tabs 01/28/25 metoprolol succinate 50 mg 50 mg PO DAILY 30 days #30 tabs 01/28/25 tablet,extended release 24 hr quetiapine 400 mg tablet 400 mg PO BEDTIME 30 days #30 tabs 01/28/25 trazodone 100 mg tablet 100 mg PO BEDTIME 30 days #30 tabs 01/28/25 Mental Status Exam Mental Status Exam Narrative: Pt is alert and oriented; behavior is cooperative and calm; dressed in casual attire; mood is described as good ; eye contact appropriate; Speech is normal rate, volume and not pressured; thought process is organized; Thought content is on discharge; denies SI/HI/VH/AH. Data Data Completed and Pending Completed studies during hospitalization [Text1]: 01/22/25 17:32 Influenza Type A (PCR) NEGATIVE Influenza Type B (PCR) NEGATIVE RSV RNA Qual (PCR) NEGATIVE SARS-CoV-2 RNA (RT-PCR) NEGATIVE DS: Summary Hospital Course Hospital Course: Patient is a 59-year-old female with history of bipolar disorder and PTSD who presented to ER via ambulance from [facility] on a section 12 due to suicidal ideation with a plan to hang herself secondary to increased depression. Per crisis report, patient was recently discharged from [facility] and reports suicidal ideation with a plan to hang herself. Patient reported increased depression since her brother and uncle both within the past several months. She reports housing insecurities have been contributing to increased stressors. Tangential. She reports auditory hallucinations telling her to harm herself. Denies HI/VH. She reports poor sleep or appetite. History of several inpatient psychiatric hospitalizations; History of several suicide attempts while in [facility]. During admission patient presents alert and oriented x3. Calm and cooperative. Patient reports feeling depressed; patient stated, I'm feeling suicidal because I'm having voices. I just lost my brother and uncle. The voices are telling me to harm myself. I need my medications adjusted . Patient reports she has not seen her outpatient psychiatric provider since November 2024. She is requesting referrals to new outpatient psychiatric providers. Patient reports auditory hallucination telling her to harm herself; she reports suicidal ideation with plan to hang herself. Denies AH/VH. She reports poor sleep. Plan: CV 15 minute safety checks Continue home medications Obtain collateral Referral to outpatient psychiatric providers Encourage groups Discharge planning Pt continues to report feeling depressed; she reports suicidal ideation d/t auditory hallucinations telling her to harm herself. She reports poor sleep d/t room mate walking in and out of room. denies HI/VH. Continue current tx plan. Active on unit. social with peers. attending groups. Pt continues to report feeling depressed; pt stated, I'm still feeling depressed because of all the loses in my life . She reports poor sleep, however, nursing reports pt slept 8 hours last night. Continues to report auditory hallucinations; she is requesting to start on thorazine, Start: thorazine 25mg PO Q6HR PRN. denies SI/HI/VH. Pt reports she is worried about where she will go when discharged; she is unable to go [facility] [place] [facility] and she does not want to go to [place] d/t rules of nursing home. Active on unit. social with peers. attending groups. Patient reports feeling okay today; pt stated, the thorazine worked well. It decreased my voices and helped me sleep . Per nursing, slept 8 hours. denies SI/HI/VH/AH. Continue current tx plan. Active on unit, social with peers. attending groups. Patient reports feeling better today; continues focused on discharge and where she will go, plans on calling [facility] today. denies SI/HI/VH. She reports auditory hallucinations that are minimal. Plan for discharge this week if continues to improve; pt aware. Patient reports feeling good today; continues focused on discharge and where she will go. denies SI/HI/VH/AH. Per nursing, slept 7 hours last night. pt requesting [facility] application; social work case manager aware. Plan to discharge ; pt aware. continue current tx plan Active on unit, social with peers. attending groups. Patient continues to report feeling good today and ready for discharge. denies SI/HI/VH/AH. Pt reports she plans on applying for [facility] services. Hospitalist consult placed for continuous hypertension. Patient states she plans on following up with outpatient providers. Status at Discharge Cognitive/behavioral status at discharge: Patient has insight and demonstrates good judgment in terms of wanting to pursue treatment. Patient has a safety plan that includes presenting to the closest ER or calling 911 if feeling unsafe. Functional status at discharge: independent ambulation Overall status at discharge: patient is back to baseline Time Spent with Patient Time attestation: Total time managing care of this patient today _20___ minutes. Time spent: Less than 30 minutes Discharge Plan Discharge Anticipated Discharge Date/Time: 01/28/25 11:00 Patient Disposition: Home, Self-Care Discharge Diagnosis: Bipolar d/o, PTSD Referrals: Isabel Bryant (Psychiatry) [Other] - 02/11/25 3:00 pm (IN OFFICE APPOINTMENT) Elizabeth Arredondo FNP [Nurse Practitioner] - 1 Week (01-27-25 Your primary care provider has been notified of your discharge and will contact you with the date and time of your follow up appt.) Discharge Medications: New hydralazine 10 mg Tablet 15 mg PO TID 14 Days Qty: 63 1RF Protocol: Hold for SBP< HOLD for SBP < : 90 metoprolol succinate 50 mg Tablet Extended Release 24 Hr 50 mg PO DAILY 30 Days Qty: 30 0RF Protocol: Hold for SBP/HR < HOLD for SBP < : 90 HOLD for HR < : 60 melatonin 5 mg tablet 5 mg PO BEDTIME 30 Days Qty: 30 0RF trazodone 100 mg Tablet 100 mg PO BEDTIME 30 Days Qty: 30 0RF quetiapine 400 mg Tablet 400 mg PO BEDTIME 30 Days Qty: 30 0RF Continued amlodipine 10 mg Tablet 10 mg PO DAILY 30 Days Qty: 30 0RF Protocol: Hold for SBP< HOLD for SBP < : 90 Discontinued hydralazine 10 mg Tablet 10 mg PO TID 30 Days Qty: 90 0RF Protocol: Hold for SBP< HOLD for SBP < : 90 quetiapine 300 mg Tablet 300 mg PO BEDTIME 30 Days Qty: 7 4RF quetiapine 50 mg tablet 50 mg PO BEDTIME metoprolol succinate 25 mg Tablet Extended Release 24 Hr 25 mg PO DAILY Discharge Orders: Discharge Order (Routine); Ordered 01/28/25 Ordered By: Sravanthi Moreno Diet: Regular diet Activity on Discharge: As tolerated Stand Alone Forms: Patient Portal Discharge page, Community Support Print Language: [place] Care Plan Goals: Maintain mood and safe behaviors Take medications as prescribed Practice coping skills Continue with outpatient providers and reach out to them as needed Health Concerns: Mood stability and behaviors Plan of Treatment: Follow up with your PCP, psychiatric provider and other outpatient providers regarding above concerns Take medications as prescribed Assessment: Patient has insight and demonstrates good judgment in terms of wanting to pursue treatment. Patient has a safety plan that includes presenting to the closest ER or calling 911 if feeling unsafe. Discharge Date/Time: 01/28/25 12:20
== END 2025-01-28 12:20 | disposition home or self-care (01) | DRG 753 ==
LOC: HO.ED 01-19 12:08 → HO.PADLT16 01-19 13:26
PROVIDERS: Clinical Nurse Specialist Psychiatric/Mental Health, Adult; Nurse Practitioner Family; Physician Assistant Medical; Admitting Provider Registered Nurse; Emergency Provider Emergency Medicine; Responsible Provider Registered Nurse; Visit Provider Psychiatry & Neurology Psychiatry
DX: F31.9 Bipolar disorder, unspecified (principal); R45.851 Suicidal ideations; R45.850 Homicidal ideations; F43.10 Post-traumatic stress disorder, unspecified; E03.9 Hypothyroidism, unspecified; Z59.02 Unsheltered homelessness; Z20.822 Contact with and (suspected) exposure to COVID-19; Z79.899 Other long term (current) drug therapy
CPT/HCPCS: 0241U; 36415; 80048; 80053; 80061; 80076; 80307; 81001; 83036; 85025; 93005; 99285; S9485

== ENCOUNTER → 2025-01-18 08:12 | Outpatient (BNV) | payer MEDICAID, SELFPAY | PROVIDERS: Emergency Provider Emergency Medicine; Visit Provider Internal Medicine | DX: Z13.6 Encounter for screening for cardiovascular disorders (principal) | CPT/HCPCS: 93010 ==

== ENCOUNTER → 2025-01-19 12:03 | Outpatient (BNV) | payer OTHER, SELFPAY | PROVIDERS: Admitting Provider Registered Nurse; Emergency Provider Emergency Medicine; Responsible Provider Registered Nurse; Visit Provider Registered Nurse | DX: F31.4 Bipolar disorder, current episode depressed, severe, without psychotic features (principal); F43.11 Post-traumatic stress disorder, acute | CPT/HCPCS: 99231; 99232; 99233 ==

== ENCOUNTER 2025-03-31 22:21 | Emergency (ER) | payer MEDICAID, SELFPAY ==
[2025-03-31 22:06] VITALS: BP 122/86; PULSE 102; O2SAT 96
[2025-03-31 22:21] VITALS: BP 118/77; PULSE 111; RESP 18; TEMP 37.2; O2SAT 96; BMI 27.4
[2025-03-31 22:29] VITALS: BP 118/77; PULSE 111; RESP 18; TEMP 37.2; O2SAT 96
[2025-03-31 22:33] LABS: MANUAL DIFF FLAG NO
[2025-03-31 22:39] LABS: Hematocrit 35.6 % (37.0-47.0); Hemoglobin 12.9 g/dl (12.0-16.0); Imm Gran Abs Auto 0.01 X10*3/uL (0.00-0.03); Imm Gran Pct Auto 0.3 % (0.0-0.4); Lymphocytes Absolute Auto 0.5 X10*3/uL (1.2-4.9); Mean Corpuscular HGB Conc 36.2 g/dl (31.0-35.0); Mean Corpuscular Hemoglobin 31.5 pg (27.0-33.0); Mean Corpuscular Volume 87.0 fL (80.0-98.0); NRBC Abs Auto 0.000 X10*3/uL (0.0-0.012); NRBC Pct Auto 0.0 /100WBC (0.0-0.2); Platelet Count 185 X10*3/uL (160-400); Red Blood Count 4.09 X10*6/uL (4.20-5.50); White Blood Count 3.5 X10*3/uL (4.8-10.8)
[2025-03-31 22:50] LABS: Salicylate < 5.0 mg/dL (15-30)
[2025-03-31 22:51] LABS: Alanine Aminotransferase 26 U/L (0-31); Albumin Level 4.3 g/dL (3.5-5.0); Alkaline Phosphatase 89 U/L (39-117); Anion Gap 11 (12-20); Aspartate Amino Transferase 26 U/L (5-31); Blood Urea Nitrogen 17 mg/dL (9-16); Calcium 10.7 mg/dL (8.4-10.2); Carbon Dioxide 25 mmol/L (22-29); Chloride 107 mmol/L (96-108); Creatinine Clr Calc Pharmacy 46.2; Estimated Glomerular Filt Rate 40; Potassium 3.4 mmol/L (3.3-5.1); Sodium 140 mmol/L (135-145); Total Protein 7.4 g/dL (6.5-8.0)
--- NOTE | 2025-03-31 23:52 | PC.NURSE ---
Addendum entered by Francesca Guo 03/31/25 23:55: The pt's medications were inventoried and will be sent up to the pharmacy in the morning once they open. Original Note: Report received and care assumed at 2300. While RN in report, the pt was noted to ambulate freely to the nurses station to request a snack be given. The pt presented calm and cooperative, introductions made and no further needs reported. The pt calmly returned back to her room after receiving a pudding per request.
--- NOTE | 2025-04-01 | ECG_ITS ---
Test Reason : CHECK QTC Blood Pressure : */* mmHG Vent. Rate : 62 BPM Atrial Rate : 62 BPM P-R Int : 180 ms QRS Dur : 90 ms QT Int : 428 ms P-R-T Axes : 32 -9 29 degrees QTcB Int : 434 ms Normal sinus rhythm Normal ECG When compared with ECG of 18-Jan-2025 08:12, No significant change was found Referred By: Danny Sherman Electronically Signed By: KERI KING
--- NOTE | 2025-04-01 00:17 | ED.PSYCH ---
HPI - Psych General Chief Complaint: Psychiatric Symptoms Stated Complaint: SI with pln hx of attempts no HI Source: patient Mode of arrival: EMS Limitations: no limitations History of Present Illness ED Provider: HPI Narrative: Patient's history of PTSD hypertension bipolar disorder been homeless for last 1 year says that had multiple deaths in the family in last 1 year including her feels very depressed with suicidal ideation with no plan patient is fairly compliant to her medications asking for inpatient admission Related Data Home Medications ?Medication ?Instructions ?Recorded ?Confirmed hydralazine 10 mg tablet 10 mg PO TID 04/01/25 04/01/25 metoprolol succinate 25 mg 25 mg PO DAILY 04/01/25 04/01/25 tablet,extended release 24 hr quetiapine 300 mg tablet 300 mg PO BEDTIME 04/01/25 04/01/25 quetiapine 50 mg tablet 50 mg PO BEDTIME 04/01/25 04/01/25 Previous Rx's ?Medication ?Instructions ?Recorded amlodipine 10 mg tablet 10 mg PO DAILY 30 days #30 tabs 01/28/25 melatonin 5 mg tablet 5 mg PO BEDTIME 30 days #30 tabs 01/28/25 Allergies Allergy/AdvReac Type Severity Reaction Status Date / Time [place] And Derivatives Allergy Severe Hives Verified 03/31/25 22:25 strawberry Allergy Severe Hives Verified 03/31/25 22:25 Review of Systems Review of Systems: Yes all other systems are reviewed and are negative PMFSH Past Medical History Medical History Hypertension Nausea & vomiting Depression CKD (chronic kidney disease) stage 3, GFR 30-59 ml/min Surgical History H/O knee surgery Family History Family History Mother Diabetes mellitus Social History Social History Household Members: None Housing: Homeless Do you presently have visiting nurse or other home services: No Alcohol intake: current Alcohol intake frequency: a few times a month Comment: 1:1 sitter in for SI Patient Tobacco Use Status: Refuse Tobacco use screen Second Hand Smoke Exposure: No Substance Use Type: Opiates Advance Directives: No Advance Directives Information Provided: No Do you have a plan to hurt others: Vague service: No Sexual orientation: Lesbian/Rocha/Homosexual Physical Exam Vital Signs: Vital Signs: Last Vital Signs Temp 98.4 F 04/01/25 12:38 Pulse 74 04/01/25 12:38 Resp 16 04/01/25 12:38 BP 132/77 04/01/25 12:38 Pulse Ox 99 04/01/25 12:38 O2 Del Method Room Air 04/01/25 12:38 BMI result Body Mass Index 27.4 Appearance: Alert. Oriented X3. No acute distress. Eyes: PERRLA, No Nystagmus ENT: Pharynx normal. Oral Mucosa moist Neck: Normal inspection. Neck supple. CVS: Normal heart rate and rhythm. Pulses normal. Respiratory: No respiratory distress. Equal air entry bilateral, no wheezing/rales/rhonchi Abdomen: Soft and nontender. Bowel sounds are present, no mass palpable, no CVA tenderness Skin: Skin warm and dry. Normal skin color. Normal skin turgor. Extremities: No lower extremity edema. No calf tenderness psych: Feel depressed suicidal with no plan no hallucination no delusion Neuro: Oriented X 3. No motor deficit. No sensory deficit.No cerebellar signs , cranial nerves II-XII intact Course Course Course Narrative: Time: 09:16 Date: 04/01/25 Provider: Alana Arellano DO Patient in physician observation for psychiatric evaluation.? No acute events reported overnight. No current complaints. VS stable.? Patient is in bed search status Will continue to monitor. Reevaluation(s) Reevaluation #1: Time: 11:54 Date: 04/01/25 Provider: Alana Arellano DO Physician observation ended at 1155am. Patient to be admitted as inpatient to psychiatry. [facility]ost Medications Administered Discontinued Medications Generic Name Dose Route Start Last Admin Trade Name Freq PRN Reason Stop Dose Admin Amlodipine Besylate 10 mg 04/01/25 09:00 04/01/25 09:01 Amlodipine Besylate 10 Mg Tablet PO 10 mg DAILY MITCHELL Administration Protocol Hydralazine HCl 10 mg 04/01/25 09:00 04/01/25 09:01 Hydralazine Hcl 10 Mg Tablet PO 10 mg TID MITCHELL Administration Protocol Metoprolol Succinate 25 mg 04/01/25 09:00 04/01/25 09:01 Metoprolol Succinate Er 25 Mg Tab.Er.24h PO 25 mg DAILY MITCHELL Administration Protocol Medical Decision Making Medical Decision Making [facility] Narrative: Patient with bipolar disorder with depression will increasingly depressed with suicidal feeling sometimes will get care team evaluation Lab Data [facility] Lab Attestation statement: I reviewed the patient's lab results. 03/31/25 22:29 03/31/25 22:29 Labs: Lab Results 03/31/25 04/01/25 Range/Units 22:29 04:33 WBC 3.5 L (4.8-10.8) X10*3/uL RBC 4.09 L (4.20-5.50) X10*6/uL Hgb 12.9 (12.0-16.0) g/dl Hct 35.6 L (37.0-47.0) % MCV 87.0 (80.0-98.0) fL MCH 31.5 (27.0-33.0) pg MCHC 36.2 H (31.0-35.0) g/dl RDW 13.7 (11.0-16.0) % Plt Count 185 D (160-400) X10*3/uL MPV 9.8 (9.4-12.3) fL Immature Gran % (Auto) 0.3 (0.0-0.4) % Neut % (Auto) 76.0 H (45-73) % Lymph % (Auto) 13.8 L (20-40) % [place] % (Auto) 6.8 (2-11) % Eos % (Auto) 2.5 (0-4) % Baso % (Auto) 0.6 (0-2) % Lymph # (Auto) 0.5 L (1.2-4.9) X10*3/uL [place] # (Auto) 0.2 (0.1-1.2) X10*3/uL Eos # (Auto) 0.1 (0.0-0.4) X10*3/uL Baso # (Auto) 0.0 (0.0-0.2) X10*3/uL Abs Immat Gran (auto) 0.01 (0.00-0.03) X10*3/uL Absolute Neuts (auto) 2.7 (2.0-8.3) x10*3/uL Absolute Nucleated RBC 0.000 (0.0-0.012) X10*3/uL Nucleated RBC % (auto) 0.0 (0.0-0.2) /100WBC Sodium 140 (135-145) mmol/L Potassium 3.4 D (3.3-5.1) mmol/L Chloride 107 (96-108) mmol/L Carbon Dioxide 25 (22-29) mmol/L Anion Gap 11 L (12-20) BUN 17 H (9-16) mg/dL Creatinine 1.34 (0.5-1.4) mg/dL Estim Creat Clear Calc 46.2 Estimated GFR 40 Random Glucose 162 H (60-115) mg/dL Calcium 10.7 H (8.4-10.2) mg/dL Total Bilirubin 0.6 (0.0-1.0) mg/dL AST 26 (5-31) U/L ALT 26 (0-31) U/L Alkaline Phosphatase 89 (39-117) U/L Total Protein 7.4 (6.5-8.0) g/dL Albumin 4.3 (3.5-5.0) g/dL Urine Color Yellow Urine Appearance Clear Urine pH 5.5 (5.0-9.0) Ur Specific [place] <= 1.005 (1.005-1.025) Urine Protein Negative (Neg-Trace) mg/dL Urine Glucose (UA) Negative (Negative) mg/dL Urine Ketones Negative (Negative) mg/dL Urine Blood Negative (Negative) Urine Nitrite Negative (Negative) Ur Leukocyte Esterase Negative (Negative) Salicylates < 5.0 L (15-30) mg/dL Urine Opiates Screen Not Detected (Not Detect) Ur Buprenorphine Scrn Not Detected (Not Detect) ng/mL Ur Oxycodone Screen Not Detected (Not Detect) ng/mL Urine Methadone Screen Not Detected (Not Detect) ng/mL Urine Fentanyl Screen POSITIVE H (Not Detect) Ur Barbiturates Screen Not Detected (Not Detect) Ur Phencyclidine Scrn Not Detected (Not Detect) Ur Amphetamines Screen Not Detected (Not Detect) U Benzodiazepines Scrn Not Detected (Not Detect) Urine Cocaine Screen POSITIVE H (Not Detect) U Marijuana (THC) Screen Not Detected (Not Detect) Ethyl Alcohol < 10 mg/dL Discharge Plan Discharge Clinical Impression: Depression, Suicidal ideation Patient Disposition: Xfer Psychiatric Hosp Transfer Details: [facility] Prescriptions: No Action melatonin 5 mg tablet 5 mg PO BEDTIME 30 Days Qty: 30 0RF amlodipine 10 mg Tablet 10 mg PO DAILY 30 Days Qty: 30 0RF Protocol: Hold for SBP< HOLD for SBP < : 90 hydralazine 10 mg tablet 10 mg PO TID Protocol: Hold for SBP< HOLD for SBP < : 90 quetiapine 300 mg tablet 300 mg PO BEDTIME quetiapine 50 mg tablet 50 mg PO BEDTIME metoprolol succinate 25 mg tablet extended release 24 hr 25 mg PO DAILY Interventions: [place]-Suicide Risk Severity Scale Last Done: 03/31/25 22:31 Acute Care Transfer Worksheet (ED) Last Done: 04/01/25 12:38 Discharge Date/Time: 04/01/25 12:40 Print Language: Bulgarian
[2025-04-01 04:50] LABS: Cannabinoid Screen Urine Not Detected (Not Detect)
[2025-04-01 06:16] VITALS: RESP 16
[2025-04-01 07:30] VITALS: BP 140/85; PULSE 70; RESP 18; TEMP 36.9; O2SAT 97
--- NOTE | 2025-04-01 07:34 | PC.NURSE ---
Assumed care of patient at 0645, patient appears to be resting in bed at this time, calm and cooperative, no apparent distress this am. Pt ate breakfast, offers no complaints to this RN. Continue plan of care for CARE team pedro luis
[2025-04-01 08:02] LABS: Appearance Urine Clear; Glucose Urine UA Negative (Negative); PH 5.5 (5.0-9.0); Specific Gravity - Urine <= 1.005 (1.005-1.025)
--- NOTE | 2025-04-01 08:46 | PHA.MEDREC ---
Pharmacy Consult ? Medication Reconciliation RN has completed the medication reconciliation, pharmacy reviewed. Questioned Metoprolol dose and hydralazine dose. Patient reports they decreased her metoprolol dose from 50 mg to 25 mg and she takes hydralazine 10 mg TID, not 15 mg tid as filled at pharmacy.
[2025-04-01 09:01] VITALS: BP 140/85; PULSE 70
[2025-04-01] MEDS: Metoprolol Succinate ER 25 MG TAB.ER.24H PO (09:01)
--- NOTE | 2025-04-01 09:40 | PC.NURSE ---
Pt resting on rocking chair in common area watching TV
--- NOTE | 2025-04-01 10:00 | MHC.CARE ---
Keila has been accepted for placement to [facility] located at [address] [place] [address], ETA 12pm, N2N not needed, accepting Dr. Naylor. F32.9 Unspecified Depessive Disorder. Ambulance bean picker [place] [facility] 12[place].
[2025-04-01 12:38] VITALS: BP 132/77; PULSE 74; RESP 16; TEMP 36.9; O2SAT 99
== END 2025-04-01 12:40 ==
PROVIDERS: Emergency Provider Internal Medicine
DX: F33.1 Major depressive disorder, recurrent, moderate (principal); R45.851 Suicidal ideations; Z79.899 Other long term (current) drug therapy; Z51.81 Encounter for therapeutic drug level monitoring
CPT/HCPCS: 36415; 80053; 80179; 80307; 81003; 85025; 93005; 99285; S9485

== ENCOUNTER → 2025-04-01 08:29 | Outpatient (BNV) | payer MEDICAID, SELFPAY | PROVIDERS: Emergency Provider Internal Medicine; Visit Provider Internal Medicine | DX: Z13.6 Encounter for screening for cardiovascular disorders (principal) | CPT/HCPCS: 93010 ==